=== PATIENT | male | born 1935 ===

== ENCOUNTER 2016-12-19 23:50 | Inpatient (IN) | payer MEDICARE, BC ==
[2016-12-20 00:40] LABS: ADD MANUAL DIFF? NO
[2016-12-20 00:50] LABS: BASO # 0.07 K/mm3 (0.0-2.0); EOS # 0.3 (0.0-0.7); EOS % 3.9 % (1.5-5.0); GRAN # 4.47 (1.4-6.5); GRAN % 62.7 % (50.0-68.0); HEMATOCRIT 35.7 % (42.0-52.0); LYMPH # 1.5 (1.2-3.4); LYMPH % 21.6 % (22.0-35.0); MEAN CELL VOLUME 87.3 fL (80.0-105.0); MEAN CORPUSCULAR HEMOGLOBIN 29.8 pg (25.0-35.0); MEAN CORPUSCULAR HGB CONC 34.2 g/dl (31.0-37.0); MEAN PLATELET VOLUME 9.7 fl (7.0-11.0); MONO # 0.8 (0.1-0.6); MONO % 10.8 % (1.0-6.0); PLATELET COUNT 240 10^3/uL (120.0-450.0); RED CELL DISTRIBUTION WIDTH 13.5 % (11.5-14.5); WHITE BLOOD COUNT 7.1 10^3/ul (4.5-11.0)
[2016-12-20 00:52] LABS: BILIRUBIN,TOTAL 0.7 mg/dL (0.2-1.3); CALCIUM 9.5 mg/dL (8.4-10.5); POTASSIUM 4.3 mmol/L (3.6-5.0); TOTAL PROTEIN 8.1 g/dL (5.8-8.3)
[2016-12-20 00:57] LABS: INR 0.94 (0.93-1.08); PARTIAL THROMBOPLASTIN TIME 24.8 Seconds (23.7-30.8)
--- NOTE | 2016-12-20 02:06 | ED PDOC ---
Arrival/HPI - General Chief Complaint: Lower Extremity Problem/Injury Time Seen by Provider: 12/20/16 00:14 Historian: Patient - History of Present Illness Narrative History of Present Illness (Text): 12/20/16 03:43 81-year-old male presents today with worsening left leg swelling 3 days. Patient states she's noticed over the past few days the leg has been becoming more and more swollen. Patient with a history of prostate cancer status post hormone therapy. Patient denies fevers or chills. No chest pain or shortness of breath. Patient denies numbness weakness or tingling in the lower extremities. Patient states he has been more sedentary lately. No vomiting or diarrhea. No abdominal pain. No recent trauma or injury. No other complaints Past Medical History - Provider Review Nursing Documentation Reviewed: Yes - Travel History Have you recently traveled outside [place] w/in the past 3 mons?: No - Infectious Disease Hx of Infectious Diseases: None - Tetanus Immunization Tetanus Immunization: Unknown - Cardiac Hx Pacemaker: No - Pulmonary Hx Respiratory Disorders: No - Neurological Hx Paralysis: No - HEENT Hx HEENT Disorder: Yes (GLASSES FOR READING) Hx Cataracts: Yes (SX) - Renal Hx Renal Disorder: No (RIGHT HYDRONEPHROSIS) Other/Comment: TUMOR IN THE URETER-PLACEMENT OF NEPHROSTOMY TUBE [id number] - Endocrine/Metabolic Hx Diabetes Mellitus Type 1: Yes - Hematological/Oncological Hx Blood Transfusions: No Hx Blood Transfusion Reaction: No - Integumentary Hx Dermatological Disorder: No - Musculoskeletal/Rheumatological Hx Musculoskeletal Disorders: Yes - Gastrointestinal Hx Gastrointestinal Disorders: No - Genitourinary/Gynecological Hx Genitourinary Disorders: Yes Hx Hematuria: Yes Hx Prostate Cancer: Yes Hx Prostate Problems: Yes (2015) Other/Comment: PROSTATE CA on hormone therapy - Psychiatric Hx Emotional Abuse: No Hx Physical Abuse: No Hx Substance Use: No - Surgical History Other/Comment: right nephrostomy drainage tube 10/2015 - Anesthesia Hx Anesthesia Reactions: No Hx Malignant Hyperthermia: No - Suicidal Assessment Feels Threatened In Home Enviroment: No Family/Social History - Physician Review Nursing Documentation Reviewed: Yes Family/Social History: Unknown Family HX Smoking Status: Never Smoked Hx Alcohol Use: No Hx Substance Use: No Allergies/Home Meds Allergies/Adverse Reactions: Allergies No Known Allergies Allergy (Verified 08/05/16 03:48) Home Medications: Home Meds Medication Instructions Recorded Confirmed HCTZ/Losartan Potassium [Hyzaar 1 tab PO QAM 11/30/14 12/19/16 12.5 mg-50 mg] Insulin Lispro [Humalog] 25 units SQ QPM 10/27/15 12/19/16 Atorvastatin [Lipitor] 20 mg PO QAM 01/29/16 12/19/16 Bicalutamide [Casodex] 50 mg PO DAILY 07/17/16 12/19/16 Insulin Glargine,Hum.rec.anlog 50 unit SQ QAM 07/17/16 12/19/16 [Kip Allen] Review of Systems - Review of Systems Constitutional: absent: Fatigue, Fevers Respiratory: absent: SOB, Cough Cardiovascular: absent: Chest Pain, Palpitations Gastrointestinal: absent: Abdominal Pain, Nausea, Vomiting Genitourinary Male: absent: Dysuria, Frequency, Hematuria Musculoskeletal: Other (left leg swelling). absent: Arthralgias, Back Pain, Neck Pain Skin: absent: Rash, Pruritis Neurological: absent: Headache, Dizziness Psychiatric: absent: Anxiety, Depression Physical Exam Vital Signs Reviewed: Yes Vital Signs Temp Pulse Resp BP Pulse Ox 12/20/16 01:58 74 16 168/93 H 99 12/19/16 23:55 98.5 F 104 H 16 155/76 H 97 Temperature: Afebrile Blood Pressure: Hypertensive Pulse: Tachycardic Respiratory Rate: Normal Appearance: Positive for: Well-Appearing, Non-Toxic, Comfortable Pain Distress: None Mental Status: Positive for: Alert and Oriented X 3 - Systems Exam Head: Present: Atraumatic Mouth: Present: Moist Mucous Membranes Neck: Present: Normal Range of Motion Respiratory/Chest: Present: Clear to Auscultation, Good Air Exchange. No: Respiratory Distress, Accessory Muscle Use Cardiovascular: Present: Regular Rate and Rhythm, Normal S1, S2. No: Murmurs Abdomen: No: Tenderness, Rebound, Guarding Upper Extremity: Present: Normal Inspection Lower Extremity: Present: Edema, NORMAL PULSES, Normal ROM, Swelling (+ edema noted to left thigh, knee, calf and ankle. ), Neurovascularly Intact, Capillary Refill < 2 s. No: CALF TENDERNESS, Tenderness, Erythema, Temperature Abnormalties Medical Decision Making ED Course and Treatment: 12/20/16 03:45 81-year-old male with a history of prostate cancer with a three-day history of left leg swelling without pain Patient nontoxic well-appearing no distress with significant swelling to the entire left leg Venous duplex of the left lower extremity shows a partial DVT of the common femoral vein CBC within normal limits CMP glucose 300 BUNs 44 creatinine 2.5 PT/INR PTT cxr;wnl We will start the patient on heparin. We will treat hyperglycemia with insulin. Pts PMD is dr. monreal; will admit to hospitalist. discussed in depth with Dr. schulte excepts admission to [facility] for DVT all results discussed with patient and family member. impression: dvt admit to med/surg dr. JENIFER marshall. - Lab Interpretations Lab Results: 12/20/16 00:32 12/20/16 00:32 Lab Results 12/20/16 00:32: WBC 7.1, RBC 4.09, Hgb 12.2 L, Hct 35.7 L, MCV 87.3, MCH 29.8, MCHC 34.2, RDW 13.5, Plt Count 240, MPV 9.7, Gran % 62.7, Lymph % (Auto) 21.6 L , [place] % (Auto) 10.8 H, Eos % (Auto) 3.9, Baso % (Auto) 1.0, Gran # 4.47, Lymph # 1.5, Todd # 0.8 H, Eos # 0.3, Baso # 0.07 12/20/16 00:32: Sodium 139, Potassium 4.3, Chloride 102, Carbon Dioxide 24, Anion Gap 17, BUN 44 H, Creatinine 2.5 H, Est GFR ( Amer) 30, Est GFR ( Non-Af Amer) 25, Random Glucose 300 H, Calcium 9.5, Total Bilirubin 0.7, AST 18 , ALT 28, Alkaline Phosphatase 150 H, Total Protein 8.1, Albumin 4.0, Globulin 4.2, Albumin/Globulin Ratio 1.0 L 12/20/16 00:32: PT 10.2, INR 0.94, APTT 24.8 - RAD Interpretation Radiology Orders: 12/20/16 00:14 DUPLEX LOWER EXTRM VEIN LEFT [US] Stat 12/20/16 00:30 CHEST PORTABLE [RAD] Stat - Medication Orders Current Medication Orders: Atorvastatin Calcium (Lipitor) 20 mg PO QAM MANNIE Bicalutamide (Casodex) 50 mg PO DAILY [facility] Hydrochlorothiazide (Microzide) 12.5 mg PO DAILY [facility] Sodium Chloride (Sodium Chloride 0.9%) 1,000 mls @ 100 mls/hr IV .Q10H MANNIE Last Admin: 12/20/16 03:33 Dose: 100 mls/hr Heparin Sodium/Sodium Chloride (Heparin 25442 Units/250ml 1/2 Normal Saline) 25 ,000 units in 250 mls @ 15.627 mls/hr IV .Q16H PRN; Protocol; 18 UNITS/KG/HR PRN Reason: ADJUST RATE PER PROTOCOL Last Admin: 12/20/16 03:29 Dose: 18 units/kg/hr, 15.627 mls/hr Insulin Detemir (Levemir) 30 unit SC HS [facility] Insulin Human Regular (Humulin R Med) 0 units SC ACHS MANNIE PRN Reason: Protocol Losartan Potassium (Cozaar) 50 mg PO DAILY [facility] Ondansetron HCl (Zofran Inj) 4 mg IVP Q6H PRN PRN Reason: Nausea/Vomiting Discontinued Medications Heparin Sodium (Porcine) (Heparin) 6,400 units 80 units/kg (6400 units) IV ONCE ONE PRN Reason: Protocol Stop: 12/20/16 03:01 Last Admin: 12/20/16 03:15 Dose: 6,400 units Disposition/Present on Arrival - Present on Arrival Any Indicators Present on Arrival: No History of DVT/PE: No History of Uncontrolled Diabetes: No Urinary Catheter: No History of Decub. Ulcer: No History Surgical Site Infection Following: None - Disposition Have Diagnosis and Disposition been Completed?: Yes Diagnosis: Hyperglycemia, Chronic kidney disease, DVT (deep venous thrombosis) Disposition: HOSPITALIZED Disposition Time: 02:04 Patient Plan: Admission Patient Problems: Current Active Problems Problem Status Onset DVT (deep venous thrombosis) Acute Hyperglycemia Acute Chronic kidney disease Chronic Condition: FAIR
--- NOTE | 2016-12-20 02:45 | CP.PCM.HP ---
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 Patient states that he noticed his leg visibly becoming more and more swollen so he came to the emergency department. He denies complaints of pain, numbness or tingling to the leg. He did not have any trauma or bites to the leg, denies recent travel but does admit to being more sedentary than usual due to having trouble sleeping at night which causes him to lay down during the day. The increase in his sedentary behavior has occurred over the past 1 week. He denies any complaints of chest pain, fever, chills, shortness of breath, palpitations, abdominal pain, nausea, vomiting, diarrhea or dysuria. Past medical history: Prostate Ca s/p horomone therapy history of nephrostomy tube due to a bladder mass; now with a ureteral stent Diabetes Allergies: NKDA Fam Hx: Sister - secondary to gastric cancer; father - Diabetes Soc hx: denies tobacco/etoh/illicit drug use Meds: Lispro 25 units SQ PM Glargine 50 Units SQ AM HCTZ/Losartan 12.5/50 Casodex 50mg po daily Lipitor 20mg po AM Present on Admission - Present on Admission Any Indicators Present on Admission: No Review of Systems - Review of Systems Review of Systems: As per HPI otherwise negative for a 12 point ROS Past Patient History - Infectious Disease Hx of Infectious Diseases: None - Tetanus Immunizations Tetanus Immunization: Unknown - Past Medical History & Family History Past Medical History?: Yes - Past Social History Smoking Status: Never Smoked Alcohol: None Drugs: Denies Home Situation {Lives}: With Family - CARDIAC Hx Pacemaker: No - PULMONARY Hx Respiratory Disorders: No - NEUROLOGICAL Hx Paralysis: No - HEENT Hx HEENT Problems: Yes (GLASSES FOR READING) Hx Cataracts: Yes (SX) - RENAL Hx Chronic Kidney Disease: No (RIGHT HYDRONEPHROSIS) Other/Comment: TUMOR IN THE URETER-PLACEMENT OF NEPHROSTOMY TUBE [id number] - ENDOCRINE/METABOLIC Hx Diabetes Mellitus Type 1: Yes - HEMATOLOGICAL/ONCOLOGICAL Hx Blood Transfusions: No Hx Blood Transfusion Reaction: No - INTEGUMENTARY Hx Dermatological Problems: No - MUSCULOSKELETAL/RHEUMATOLOGICAL Hx Musculoskeletal Disorders: Yes - GASTROINTESTINAL Hx Gastrointestinal Disorders: No - GENITOURINARY/GYNECOLOGICAL Hx Genitourinary Disorders: Yes Hx Hematuria: Yes Hx Prostate Cancer: Yes Hx Prostate Problems: Yes (2015) Other/Comment: PROSTATE CA on hormone therapy - PSYCHIATRIC Hx Emotional Abuse: No Hx Physical Abuse: No Hx Substance Use: No - SURGICAL HISTORY Other/Comment: right nephrostomy drainage tube 10/2015 - ANESTHESIA Hx Anesthesia Reactions: No Hx Malignant Hyperthermia: No Meds Allergies/Adverse Reactions: Allergies Allergy/AdvReac Type Severity Reaction Status Date / Time No Known Allergies Allergy Verified 08/05/16 03:48 Physical Exam - Constitutional Appears: Well, Non-toxic - Head Exam Head Exam: ATRAUMATIC, NORMAL INSPECTION - Eye Exam Eye Exam: EOMI, Normal appearance - ENT Exam ENT Exam: Mucous Membranes Moist - Respiratory Exam Respiratory Exam: Clear to Auscultation Bilateral, NORMAL BREATHING PATTERN. absent: Rales, Rhonchi, Wheezes - Cardiovascular Exam Cardiovascular Exam: REGULAR RHYTHM, +S1, +S2 - GI/Abdominal Exam GI & Abdominal Exam: Soft. absent: Guarding, Rebound, Tenderness - Rectal Exam Rectal Exam: Deferred - Extremities Exam Additional comments: LLE visibly swollen compared to RLE; nontender; most of the increased swelling appears to be at the inner thigh; mild erythema - Neurological Exam Neurological exam: Alert, Oriented x3 - Psychiatric Exam Psychiatric exam: Normal Affect, Normal Mood - Skin Skin Exam: Dry, Intact, Normal Color, Warm Results - Vital Signs Recent Vital Signs: Last Vital Signs Temp 98.5 F 12/19/16 23:55 Pulse 104 H 12/19/16 23:55 Resp 16 12/19/16 23:55 BP 155/76 H 12/19/16 23:55 Pulse Ox 97 12/19/16 23:55 - Labs Result Diagrams: 12/20/16 00:32 12/20/16 00:32 Labs: Laboratory Results - last 24 hr 12/20/16 12/20/16 12/20/16 00:32 00:32 00:32 WBC 7.1 RBC 4.09 Hgb 12.2 L Hct 35.7 L MCV 87.3 MCH 29.8 MCHC 34.2 RDW 13.5 Plt Count 240 MPV 9.7 Gran % 62.7 Lymph % (Auto) 21.6 L [place] % (Auto) 10.8 H Eos % (Auto) 3.9 Baso % (Auto) 1.0 Gran # 4.47 Lymph # 1.5 [place] # 0.8 H Eos # 0.3 Baso # 0.07 PT 10.2 INR 0.94 APTT 24.8 Sodium 139 Potassium 4.3 Chloride 102 Carbon Dioxide 24 Anion Gap 17 BUN 44 H Creatinine 2.5 H Est GFR ( Amer) 30 Est GFR (Non-Af Amer) 25 Random Glucose 300 H Calcium 9.5 Total Bilirubin 0.7 AST 18 ALT 28 Alkaline Phosphatase 150 H Total Protein 8.1 Albumin 4.0 Globulin 4.2 Albumin/Globulin Ratio 1.0 L - Imaging and Cardiology Venous US Status: Pending (Lower extremity Ultrasound preliminarily read as left common femoral VTE) Assessment & Plan - Assessment and Plan (Free Text) Assessment: 81 year old male with a Past medical history of Diabetes, Prostate Ca, Hypertension, Dyslipidemia, ureteral stent who presents with lower extremity swelling for 3 days and is found to have a DVT in the common femoral vein. He will be admitted for therapeutic anticoagulation. Plan: 1) Lower extremity VTE - will await official US report; start a heparin drip and bridge to either coumadin or start another oral agent depending on patient' s insurance status. Likely developed due to a combination of sedentary lifestyle combined with a history of malignancy; For completeness sake will send off a workup for clotting factors. 2) Diabetes - will place on an ISS and perform fingersticks ACHS; will start levemir 30 units PM and monitor 3) Hypertension - c/w HCTZ/Losartan 4) Prostate Ca - c/w casodex 5) Dyslipidemia - lipitor 20mg po hs 6) Acute on chronic kidney injury - will provide light IVF hydration @ 100cc/hr and re-check bmp in the AM tomorrow
[2016-12-20] MEDS ORDERED: Heparin25000 units/250ml 1/2NS 25,000 UNITS/250 ML BAG IV PRN ×2 (02:47→02:57)
[2016-12-20] MEDS ORDERED: Sodium Chloride 0.9% 1,000 ML IV SCH (03:00)
[2016-12-20] MEDS: Heparin25000 units/250ml 1/2NS 25,000 UNITS/250 ML BAG IV PRN ×2 (03:29→23:08)
[2016-12-20 04:29] VITALS: BMI 28.2
[2016-12-20] MEDS ORDERED: Sodium Chloride 0.45% 1,000 ML IV SCH (08:00)
[2016-12-20] MEDS: Insulin Reg-MEDIUM-Coverage SC SCH ×4 (08:20→23:05)
--- NOTE | 2016-12-20 08:52 | RAD ---
HISTORY: left leg pain/swelling COMPARISON: 08/05/2016 FINDINGS: LUNGS: No active pulmonary disease. PLEURA: No significant pleural effusion identified, no pneumothorax apparent. CARDIOVASCULAR: Normal. OSSEOUS STRUCTURES: No significant abnormalities. VISUALIZED UPPER ABDOMEN: Normal. OTHER FINDINGS: None. IMPRESSION: No active disease.
--- NOTE | 2016-12-20 09:21 | US ---
PROCEDURE: Left lower extremity venous US HISTORY: Leg pain and swelling. Evaluate for DVT. PHYSICIAN(S): Tevin Eaton MD. TECHNIQUE: Duplex sonography and color-flow Doppler with graded compression were used to evaluate the deep venous system of the left lower extremity. FINDINGS: There is adherent subacute/chronic nonocclusive thrombus in the left common femoral vein. The left femoral vein, left popliteal vein, and visualized left tibial veins are patent and compressible. IMPRESSION: 1. Nonocclusive adherent subacute/chronic thrombus in the left common femoral vein
[2016-12-20] MEDS ORDERED: Non Formulary Medication (Hctz/Losartan Potassium [Hyzaar 12.5 Mg-50 Mg] 1 TAB) PO SCH (10:00)
--- NOTE | 2016-12-20 14:19 | CON ---
DATE: 12/20/2016 HISTORY OF PRESENT ILLNESS: This is an 81-year-old man who comes in for a subacute left common femor al lower leg phlebitis. He is known to have prostate carcinoma, being treated with Lupron and Casode x for the last year and was doing well. He presented, I suspect, with bone metastases. He does get a pain in his right arm that radiates somewhat ____, but no change recently. Anyway, he comes in for swelling of his left leg for 3 days. PHYSICAL EXAMINATION: SKIN: No petechiae, no bruises. HEENT: Anicteric. NODES: None palpable in the axillary, cervical, supraclavicular or inguinal regions. LUNGS: Clear at present. No vertebral tenderness. HEART: S1, S2. ABDOMEN: Shows no liver, no spleen, no tenderness, no ascites. EXTREMITIES: Shows on the left upper thigh some swelling, but he says it is already better on the Co umadin for a day. EXTREMITIES: No edema. CENTRAL NERVOUS SYSTEM: No focal finding. I discussed with the resident, he is on heparin and we can start him on Coumadin as soon as possible. Once he has a reasonable INR which I expect in 2 or 3 days, he can be discharged to be followed by the footwear sales representative. Evidently has also an appointment to see me the first week in January and will reevaluat e him at that time in terms of his prostate cancer, etc. But at this point, we will give him the Cou madin for at least 6 months and reevaluate. Ravinder Marina MD cc: [id number] TT: 12/20/2016 14:18:52 Confirmation # [id number] Dictation # [id number] jn
--- NOTE | 2016-12-20 14:27 | CON ---
DATE: 12/20/2016 REASON FOR CONSULTATION: Acute kidney injury. 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 The patient denies any trauma. He denies any fever, chills. He denies any itch ing, rash. He is found to have a left lower extremity DVT. Also, he is found to have his creatinine higher than his baseline. Baseline creatinine is around 2.0. His creatinine was found to be 2.5; h ence, consultation is requested. PAST MEDICAL AND SURGICAL HISTORY: NIDDM, hypertension, prostate cancer, history of nephrostomy, rig ht ureteral stent, chronic kidney disease stage IV, bowel surgery, hyperlipidemia, hyponatremia. FAMILY HISTORY: Noncontributory. SOCIAL HISTORY: No smoking, no alcohol use, no IV drug abuse. ALLERGIES: No known drug allergies. MEDICATIONS AT HOME: Included insulin, Hyzaar 50/12.5, Casodex, Lipitor. CURRENT MEDICATIONS: Casodex, Cozaar 50, heparin IV, insulin, Lipitor, Zofran. REVIEW OF SYSTEMS: All systems are reviewed, pertinent positives as mentioned in the history of pres enting illness, rest unremarkable. PHYSICAL EXAMINATION: GENERAL: Elderly male lying in bed. VITAL SIGNS: Blood pressure 178/94, heart rate 134, respiratory rate 18, temperature 98. HEENT: Normocephalic, atraumatic. NECK: Supple, no JVD. LUNGS: Bilateral equal air entry, no rales. CARDIAC: S1, S2, regular rate and rhythm, no murmur, no rub. ABDOMEN: Soft, nondistended, nontender. Bowel sounds present. EXTREMITIES: Significant edema of the left lower extremity, no edema of the right lower extremity. INTAKE AND OUTPUT: 220/100. LABORATORY DATA: WBC 7.1, hemoglobin 12, hematocrit 36, platelets 240. Sodium 139, potassium 4.3, c hloride 102, CO2 24, BUN 44, creatinine 2.5, glucose 300, calcium 9.5, AST 18, ALT 28, albumin 4.0. ASSESSMENT: 1. Acute kidney injury superimposed on chronic kidney disease stage IV. 2. Left lower extremity deep venous thrombosis. 3. Non-insulin dependent diabetes mellitus. 4. Hypertension. 5. History of prostate cancer. 6. History of bladder mass. 7. History of right hydronephrosis. PLAN: 1. Agree with IV heparin. 2. Agree with holding hydrochlorothiazide. 3. Push p.o. fluids. 4. Monitor urine output. 5. Limit diagnostics. Clare Cooney MD cc: [id number] TT: 12/20/2016 14:27:16 Confirmation # [id number] Dictation # [id number] tn
[2016-12-20 15:34] LABS: INR 0.99 (0.93-1.08)
[2016-12-20 15:42] LABS: PARTIAL THROMBOPLASTIN TIME 104.6 Seconds (23.7-30.8)
[2016-12-20 21:04] LABS: INR 0.99 (0.93-1.08); PARTIAL THROMBOPLASTIN TIME 63.9 Seconds (23.7-30.8)
[2016-12-20] MEDS: Insulin Detemir 100 units/ml Vial (Levemir) SC SCH (23:07)
[2016-12-20] MEDS ORDERED: DiphenhydrAMINE 50 mg/ml Inj IVP STA (23:42)
[2016-12-21 03:15] LABS: ADD MANUAL DIFF? NO
[2016-12-21 03:16] LABS: BASO # 0.06 K/mm3 (0.0-2.0); BASO % 0.9 % (0.0-3.0); EOS # 0.3 (0.0-0.7); EOS % 3.7 % (1.5-5.0); GRAN % 59.7 % (50.0-68.0); HEMATOCRIT 34.5 % (42.0-52.0); LYMPH # 1.9 (1.2-3.4); LYMPH % 27.8 % (22.0-35.0); MEAN CORPUSCULAR HEMOGLOBIN 29.4 pg (25.0-35.0); MEAN CORPUSCULAR HGB CONC 34.2 g/dl (31.0-37.0); MEAN PLATELET VOLUME 9.4 fl (7.0-11.0); MONO # 0.5 (0.1-0.6); MONO % 7.9 % (1.0-6.0); PLATELET COUNT 231 10^3/uL (120.0-450.0); RED CELL DISTRIBUTION WIDTH 13.5 % (11.5-14.5); WHITE BLOOD COUNT 6.7 10^3/ul (4.5-11.0)
[2016-12-21 03:19] LABS: INR 0.99 (0.93-1.08); PARTIAL THROMBOPLASTIN TIME 58.3 Seconds (23.7-30.8)
[2016-12-21 03:31] LABS: ALB/GLOB RATIO 0.9 (1.1-1.8); BILIRUBIN,TOTAL 0.7 mg/dL (0.2-1.3); CALCIUM 9.3 mg/dL (8.4-10.5); POTASSIUM 3.8 mmol/L (3.6-5.0); TOTAL PROTEIN 8.3 g/dL (5.8-8.3)
[2016-12-21] MEDS: Insulin Reg-MEDIUM-Coverage SC SCH ×4 (07:37→21:10)
--- NOTE | 2016-12-21 13:57 | PN ---
DATE: 12/21/2016 SUBJECTIVE: The patient is seen lying in bed. He appears comfortable. He has IV heparin going. PHYSICAL EXAMINATION: GENERAL: Elderly male lying in bed. VITAL SIGNS: Blood pressure 136/78, heart rate 82, respiratory rate 18, temperature 98. HEENT: Normocephalic, atraumatic. NECK: Supple, no JVD. LUNGS: Bilateral equal air entry. CARDIAC: S1, S2, regular rate and rhythm, no murmur, no rub. ABDOMEN: Distended, soft, nontender, bowel sounds present. EXTREMITIES: Swelling of the left lower extremity, no edema of the right lower extremity. INTAKE AND OUTPUT: 1590/650. LABORATORY DATA: WBC 6.7, hemoglobin 11.8, hematocrit 34.5, platelets 231. PTT 56.7. Sodium 138, p otassium 3.8, chloride 103, CO2 23, BUN 36, creatinine 2.2, glucose 133, calcium 9.3. CURRENT MEDICATIONS: Casodex, Coumadin, Cozaar 50, heparin IV, insulin, Levemir, Lipitor, Zofran. ASSESSMENT: 1. Acute kidney injury superimposed on chronic kidney disease stage IV, resolved. 2. Left lower extremity deep venous thrombosis. 3. Hypertension. 4. History of prostate cancer, radiation therapy, history of percutaneous nephrostomy on the right s viviana, right ureteral stent. 5. Non-insulin dependent diabetes mellitus. PLAN: 1. Push p.o. fluids. 2. Continue IV heparin. 3. Continue insulin coverage. 4. Continue losartan 50 mg daily. Clare Cooney MD cc: [id number] TT: 12/21/2016 13:56:49 Confirmation # [id number] Dictation # [id number]
[2016-12-21] MEDS: Insulin Detemir 100 units/ml Vial (Levemir) SC SCH (21:11)
--- NOTE | 2016-12-21 22:03 | CP.PCM.PN ---
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 Today, pt. states the swelling has decreased and he denies any complaints of chest pain , fever, chills, shortness of breath, palpitations, abdominal pain, nausea, vomiting, diarrhea or dysuria. Objective - Vital Signs/Intake and Output Vital Signs (last 24 hours): Temp Pulse Resp BP Pulse Ox 98.0 F 82 20 136/78 97 12/21/16 06:00 12/21/16 06:00 12/21/16 06:00 12/21/16 06:00 12/21/16 06:00 Intake and Output: 12/21/16 12/22/16 18:59 06:59 Intake Total 540 Output Total 700 Balance -160 - Medications Medications: Current Medications Atorvastatin Calcium (Lipitor) 20 mg PO QAM [facility] Last Admin: 12/21/16 09:12 Dose: 20 mg Bicalutamide (Casodex) 50 mg PO DAILY [facility] Last Admin: 12/21/16 09:12 Dose: 50 mg Heparin Sodium/Sodium Chloride (Heparin 00827 Units/250ml 1/2 Normal Saline) 25 ,000 units in 250 mls @ 15.627 mls/hr IV .Q16H PRN; Protocol; 18 UNITS/KG/HR PRN Reason: ADJUST RATE PER PROTOCOL Last Admin: 12/20/16 23:08 Dose: 11.05 units/kg/hr, 9.593 mls/hr Insulin Detemir (Levemir) 30 unit SC HS [facility] Last Admin: 12/21/16 21:11 Dose: 30 unit Insulin Human Regular (Humulin R Med) 0 units SC ACHS [facility] PRN Reason: Protocol Last Admin: 12/21/16 21:10 Dose: Not Given Losartan Potassium (Cozaar) 50 mg PO DAILY [facility] Last Admin: 12/21/16 09:12 Dose: 50 mg Ondansetron HCl (Zofran Inj) 4 mg IVP Q6H PRN PRN Reason: Nausea/Vomiting Sodium Chloride ([place]al [place]) 0 ml NS Q3 PRN PRN Reason: Nasal congestion Warfarin Sodium (Coumadin) 5 mg PO 1800 [facility] PRN Reason: Protocol Last Admin: 12/21/16 17:18 Dose: 5 mg - Labs Labs: 12/21/16 03:00 12/21/16 03:00 PT 10.7 Seconds (9.9-11.8) 12/21/16 03:00 INR 0.99 (0.93-1.08) 12/21/16 03:00 APTT 56.7 Seconds (23.7-30.8) H 12/21/16 09:25 - Constitutional Appears: Non-toxic, No Acute Distress - Head Exam Head Exam: ATRAUMATIC, NORMOCEPHALIC - Eye Exam Eye Exam: EOMI - ENT Exam ENT Exam: Mucous Membranes Moist - Respiratory Exam Respiratory Exam: Clear to Ausculation Bilateral, NORMAL BREATHING PATTERN - Cardiovascular Exam Cardiovascular Exam: REGULAR RHYTHM, RRR, +S1, +S2. absent: JVD - GI/Abdominal Exam GI & Abdominal Exam: Soft, Mass (fullness in lower abdomen), Normal Bowel Sounds - Extremities Exam Extremities Exam: Joint Swelling, Pedal Edema - Back Exam Back Exam: absent: CVA tenderness (L), CVA tenderness (R), paraspinal tenderness - Neurological Exam Neurological Exam: Alert, Awake - Psychiatric Exam Psychiatric exam: Normal Affect, Normal Mood - Skin Skin Exam: Dry, Intact, Normal Color, Warm Assessment and Plan - Assessment and Plan (Free Text) Assessment: 81 year old male with a Past medical history of Diabetes, Prostate Ca, Hypertension, Dyslipidemia, ureteral stent who presents with lower extremity swelling for 3 days and is found to have a DVT in the common femoral vein. He will be admitted for therapeutic anticoagulation. 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 -start a heparin drip on 12/20 -bridge to coumadin 5mg -clotting factors -received -INR today .99 no change 2) Diabetes - -ISS -levemir 30 units PM and monitor -fingersticks ACHS 3) Hypertension stable on 12/21 -Losartan 50mg daily 4) Prostate Ca - -casodex 50mg 5) Dyslipidemia - lipitor 20mg po hs 6) Acute on chronic kidney injury - will provide light IVF hydration @ 100cc/hr and re-check bmp in the AM tomorrow 7)Abdominal Fullness on exam CT Abd/Pel w/o contrast - 8) PPX -Zofran -O2 NC 2L -Consistent Carb Diet -Vital Signs q8 -Asp precautions <Nacho Wise - Last Filed: 12/22/16 19:05> Objective - Vital Signs/Intake and Output Vital Signs (last 24 hours): Temp Pulse Resp BP Pulse Ox 98.6 F 81 20 141/68 95 12/22/16 16:42 12/22/16 16:42 12/22/16 16:42 12/22/16 16:42 12/22/16 16:42 - Medications Medications: Current Medications Atorvastatin Calcium (Lipitor) 20 mg PO DIN [facility] Last Admin: 12/22/16 17:01 Dose: 20 mg Bicalutamide (Casodex) 50 mg PO DAILY [facility] Last Admin: 12/22/16 09:27 Dose: 50 mg Docusate Sodium (Colace) 100 mg PO DAILY [facility] Last Admin: 12/22/16 12:15 Dose: 100 mg Heparin Sodium/Sodium Chloride (Heparin 16622 Units/250ml 1/2 Normal Saline) 25 ,000 units in 250 mls @ 15.627 mls/hr IV .Q16H PRN; Protocol; 18 UNITS/KG/HR PRN Reason: ADJUST RATE PER PROTOCOL Last Admin: 12/22/16 01:13 Dose: 11.05 units/kg/hr, 9.593 mls/hr Insulin Detemir (Levemir) 30 unit SC HS [facility] Last Admin: 12/21/16 21:11 Dose: 30 unit Insulin Human Regular (Humulin R Med) 0 units SC ACHS [facility] PRN Reason: Protocol Last Admin: 12/22/16 17:01 Dose: 3 units Losartan Potassium (Cozaar) 50 mg PO DAILY [facility] Last Admin: 12/22/16 09:22 Dose: 50 mg Ondansetron HCl (Zofran Inj) 4 mg IVP Q6H PRN PRN Reason: Nausea/Vomiting Polyethylene Glycol (Miralax) 17 gm PO DAILY [facility] Last Admin: 12/22/16 12:15 Dose: 17 gm Sodium Chloride ([place]al [place]) 0 ml NS Q3 PRN PRN Reason: Nasal congestion Warfarin Sodium (Coumadin) 10 mg PO 1800 MANNIE PRN Reason: Protocol Last Admin: 12/22/16 17:01 Dose: 10 mg - Labs Labs: 12/22/16 07:00 12/21/16 03:00 PT 11.5 Seconds (9.9-11.8) 12/22/16 07:00 INR 1.06 (0.93-1.08) 12/22/16 07:00 APTT 52.3 Seconds (23.7-30.8) H 12/22/16 07:00 Attending/Attestation - Attestation I have personally seen and examined this patient.: Yes I have fully participated in the care of the patient.: Yes I have reviewed all pertinent clinical information, including history, physical exam and plan: Yes Notes (Text): I have seen and examined patient at bedside. 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 CT abdomen and pelvis ordered. Creatinine is stable around 2.2. Upon discharge patient will follow up with Dr Marina, Dr Bauer and Dr Cooney. Dr Nacho Wise
[2016-12-22] MEDS: Heparin25000 units/250ml 1/2NS 25,000 UNITS/250 ML BAG IV PRN (01:13)
[2016-12-22 07:25] LABS: ADD MANUAL DIFF? NO
[2016-12-22 07:35] LABS: BASO # 0.06 K/mm3 (0.0-2.0); BASO % 0.9 % (0.0-3.0); EOS # 0.2 (0.0-0.7); EOS % 3.2 % (1.5-5.0); GRAN # 3.88 (1.4-6.5); GRAN % 59.1 % (50.0-68.0); LYMPH # 1.8 (1.2-3.4); LYMPH % 26.7 % (22.0-35.0); MEAN CELL VOLUME 86.4 fL (80.0-105.0); MEAN CORPUSCULAR HEMOGLOBIN 29.6 pg (25.0-35.0); MEAN CORPUSCULAR HGB CONC 34.3 g/dl (31.0-37.0); MEAN PLATELET VOLUME 9.9 fl (7.0-11.0); MONO # 0.7 (0.1-0.6); MONO % 10.1 % (1.0-6.0); PLATELET COUNT 243 10^3/uL (120.0-450.0); RED CELL DISTRIBUTION WIDTH 13.7 % (11.5-14.5); WHITE BLOOD COUNT 6.6 10^3/ul (4.5-11.0)
[2016-12-22 07:40] LABS: INR 1.06 (0.93-1.08); PARTIAL THROMBOPLASTIN TIME 52.3 Seconds (23.7-30.8)
[2016-12-22] MEDS: Insulin Reg-MEDIUM-Coverage SC SCH ×4 (07:46→23:07)
--- NOTE | 2016-12-22 10:54 | CT ---
PROCEDURE: CT Abdomen and Pelvis without contrast. HISTORY: abdominal fullness left side COMPARISON: CT from 10/21/2015 and 06/28/2016 TECHNIQUE: Contiguous axial images of the abdomen and pelvis. No oral or IV contrast given. Coronal and Sagittal reformats generated. Please note that due to lack of intravenous and oral contrast, evaluation of soft tissue structures and bowel is limited. Radiation dose: Total exam DLP = 519.59 mGy-cm. This CT exam was performed using one or more of the following dose reduction techniques: Automated exposure control, adjustment of the mA and/or kV according to patient size, and/or use of iterative reconstruction technique. FINDINGS: LOWER THORAX: Mild bibasilar atelectatic changes noted. Small hiatal hernia. The heart is mildly enlarged. No significant pericardial effusion. Coronary artery calcifications. LIVER: Sub centimeter hypodensity in the hepatic dome (image 16, series 2) too small to characterize accurately. No intrahepatic biliary ductal dilatation. GALLBLADDER AND BILE DUCTS: Unremarkable. PANCREAS: Unremarkable. No mass. No ductal dilatation. SPLEEN: Unremarkable. No splenomegaly. ADRENALS: Hypodense adrenal nodule measuring approximately 1 centimeter on the right essentially stable. KIDNEYS AND URETERS: Both kidneys demonstrate intervening cortices. Multiple cysts noted on the left. The right renal collecting system contains air. Ureteral stent is noted. This could be result of recent instrumentation. Previously identified hydroureter on the right is not clearly seen as there is a stent within it. Mild hydronephrosis on the left. BLADDER: Urinary bladder demonstrates mild thickening of the wall which could be due to underdistention however underlying cystitis cannot be excluded. Nondependent air noted within the urinary bladder. Incidental note is made of thickening of the posterior wall of the urinary bladder on the right, likely associated with the right ureterovesicular junction. REPRODUCTIVE: Prostate gland is not significantly enlarged. Bilateral seminal vesicles demonstrates mild thickening on the right. APPENDIX: Unremarkable. BOWEL: Moderate stool in the colon. Focal dilatation of the sigmoid colon associated the surgical suture line seen. This remains essentially stable when compared to prior CT from 06/28/2016. No bowel obstruction. PERITONEUM: Unremarkable. No fluid collection. No free air. LYMPH NODES: There is interval development of enlarged lymph nodes in the pelvis particularly along left pelvic sidewall. The largest measuring approximately 2.7 x 2.8 centimeters noted on the left (image 149, series 2. Enlarged lymph nodes up to 2 centimeter in size noted along the right pelvic sidewall. Scattered small retroperitoneal lymph nodes also noted. VASCULATURE: Unremarkable. No aortic aneurysm. BONES: No fracture or destructive lesion. L5 pars defect on the left. OTHER FINDINGS: None. IMPRESSION: There is thickening of the posterior wall of the urinary bladder on the right, likely associated with the right ureterovesicular junction. Associated thickening of the right seminal vesicle. This is a new finding when compared to prior CT from 06/28/2016. Interval development of enlarged lymph nodes along the pelvic sidewalls left greater than right. The largest measuring approximately 2.7 x 2.8 centimeters on the left pelvic sidewall. Scattered small retroperitoneal lymph nodes also noted. Air within the right urinary collecting system likely associated with recent instrumentation. Right-sided ureteral stent noted. The distal portion of the stent is within the urinary bladder. Stable hypodense adrenal nodule on the right.
[2016-12-22] MEDS: POLYETHYLENE GLYCOL 3350 17 GM/Dose PACKET PO SCH (12:15)
--- NOTE | 2016-12-22 17:19 | CP.PCM.PN ---
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 Today, pt. states the swelling has decreased more and has no complaints. He denies chest pain, fever, chills, shortness of breath, palpitations, abdominal pain, nausea, vomiting, diarrhea or dysuria. Objective - Vital Signs/Intake and Output Vital Signs (last 24 hours): Temp Pulse Resp BP Pulse Ox 98.6 F 81 20 141/68 95 12/22/16 16:42 12/22/16 16:42 12/22/16 16:42 12/22/16 16:42 12/22/16 16:42 Intake and Output: 12/22/16 12/22/16 06:59 18:59 Intake Total 540 Output Total 1200 Balance -660 - Medications Medications: Current Medications Atorvastatin Calcium (Lipitor) 20 mg PO DIN [facility] Last Admin: 12/22/16 17:01 Dose: 20 mg Bicalutamide (Casodex) 50 mg PO DAILY [facility] Last Admin: 12/22/16 09:27 Dose: 50 mg Docusate Sodium (Colace) 100 mg PO DAILY [facility] Last Admin: 12/22/16 12:15 Dose: 100 mg Heparin Sodium/Sodium Chloride (Heparin 25870 Units/250ml 1/2 Normal Saline) 25 ,000 units in 250 mls @ 15.627 mls/hr IV .Q16H PRN; Protocol; 18 UNITS/KG/HR PRN Reason: ADJUST RATE PER PROTOCOL Last Admin: 12/22/16 01:13 Dose: 11.05 units/kg/hr, 9.593 mls/hr Insulin Detemir (Levemir) 30 unit SC HS [facility] Last Admin: 12/21/16 21:11 Dose: 30 unit Insulin Human Regular (Humulin R Med) 0 units SC ACHS [facility] PRN Reason: Protocol Last Admin: 12/22/16 17:01 Dose: 3 units Losartan Potassium (Cozaar) 50 mg PO DAILY [facility] Last Admin: 12/22/16 09:22 Dose: 50 mg Ondansetron HCl (Zofran Inj) 4 mg IVP Q6H PRN PRN Reason: Nausea/Vomiting Polyethylene Glycol (Miralax) 17 gm PO DAILY [facility] Last Admin: 12/22/16 12:15 Dose: 17 gm Sodium Chloride ([place] Nasal [place]) 0 ml NS Q3 PRN PRN Reason: Nasal congestion Warfarin Sodium (Coumadin) 10 mg PO 1800 MANNIE PRN Reason: Protocol Last Admin: 12/22/16 17:01 Dose: 10 mg - Labs Labs: 12/22/16 07:00 12/21/16 03:00 PT 11.5 Seconds (9.9-11.8) 12/22/16 07:00 INR 1.06 (0.93-1.08) 12/22/16 07:00 APTT 52.3 Seconds (23.7-30.8) H 12/22/16 07:00 - Constitutional Appears: Non-toxic, No Acute Distress - Head Exam Head Exam: ATRAUMATIC, NORMOCEPHALIC - Eye Exam Eye Exam: EOMI - ENT Exam ENT Exam: Mucous Membranes Moist - Respiratory Exam Respiratory Exam: Clear to Ausculation Bilateral, NORMAL BREATHING PATTERN - Cardiovascular Exam Cardiovascular Exam: REGULAR RHYTHM, RRR, +S1, +S2. absent: JVD - GI/Abdominal Exam GI & Abdominal Exam: Soft, Mass (fullness in lower abdomen), Normal Bowel Sounds - Extremities Exam Extremities Exam: Joint Swelling, Pedal Edema - Back Exam Back Exam: absent: CVA tenderness (L), CVA tenderness (R), paraspinal tenderness - Neurological Exam Neurological Exam: Alert, Awake - Psychiatric Exam Psychiatric exam: Normal Affect, Normal Mood - Skin Skin Exam: Dry, Intact, Normal Color, Warm Assessment and Plan - Assessment and Plan (Free Text) Assessment: 81 year old male with a Past medical history of Diabetes, Prostate Ca, Hypertension, Dyslipidemia, ureteral stent who presents with lower extremity swelling for 3 days and is found to have a DVT in the common femoral vein. He will be admitted for therapeutic anticoagulation. 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 -start a heparin drip on 12/20 -bridge to coumadin -increased coumadin to 10mg -clotting factors -received -INR today 1.06 slight increase 2) Diabetes - -ISS -levemir 30 units PM and monitor -fingersticks ACHS 3) Hypertension stable on 12/21 -Losartan 50mg daily 4) Prostate Ca - -casodex 50mg 5) Dyslipidemia - lipitor 20mg po hs 6) Acute on chronic kidney injury - will provide light IVF hydration @ 100cc/hr and re-check bmp in the AM tomorrow 7)Abdominal Fullness on exam CT Abd/Pel w/o contrast - see full report -thickening of the posterior wall of the urinary bladder on the right -Interval development of enlarged lymph nodes along pelivc side note -Stable hypodense adrenal nodule on the right. 8)Constipation Miralax 17gm PO daily Colace 100mg PO daily 8) PPX -Zofran -O2 NC 2L -Consistent Carb Diet -Vital Signs q8 -Asp precautions <Nacho Wise - Last Filed: 12/22/16 19:06> Objective - Vital Signs/Intake and Output Vital Signs (last 24 hours): Temp Pulse Resp BP Pulse Ox 98.6 F 81 20 141/68 95 12/22/16 16:42 12/22/16 16:42 12/22/16 16:42 12/22/16 16:42 12/22/16 16:42 - Medications Medications: Current Medications Atorvastatin Calcium (Lipitor) 20 mg PO DIN [facility] Last Admin: 12/22/16 17:01 Dose: 20 mg Bicalutamide (Casodex) 50 mg PO DAILY [facility] Last Admin: 12/22/16 09:27 Dose: 50 mg Docusate Sodium (Colace) 100 mg PO DAILY [facility] Last Admin: 12/22/16 12:15 Dose: 100 mg Heparin Sodium/Sodium Chloride (Heparin 92562 Units/250ml 1/2 Normal Saline) 25 ,000 units in 250 mls @ 15.627 mls/hr IV .Q16H PRN; Protocol; 18 UNITS/KG/HR PRN Reason: ADJUST RATE PER PROTOCOL Last Admin: 12/22/16 01:13 Dose: 11.05 units/kg/hr, 9.593 mls/hr Insulin Detemir (Levemir) 30 unit SC [facility] Last Admin: 12/21/16 21:11 Dose: 30 unit Insulin Human Regular (Humulin R Med) 0 units SC [facility] PRN Reason: Protocol Last Admin: 12/22/16 17:01 Dose: 3 units Losartan Potassium (Cozaar) 50 mg PO DAILY [facility] Last Admin: 12/22/16 09:22 Dose: 50 mg Ondansetron HCl (Zofran Inj) 4 mg IVP Q6H PRN PRN Reason: Nausea/Vomiting Polyethylene Glycol (Miralax) 17 gm PO DAILY [facility] Last Admin: 12/22/16 12:15 Dose: 17 gm Sodium Chloride ([place] Nasal [place]) 0 ml NS Q3 PRN PRN Reason: Nasal congestion Warfarin Sodium (Coumadin) 10 mg PO 1800 MANNIE PRN Reason: Protocol Last Admin: 12/22/16 17:01 Dose: 10 mg - Labs Labs: 12/22/16 07:00 12/21/16 03:00 PT 11.5 Seconds (9.9-11.8) 12/22/16 07:00 INR 1.06 (0.93-1.08) 12/22/16 07:00 APTT 52.3 Seconds (23.7-30.8) H 12/22/16 07:00 Attending/Attestation - Attestation I have personally seen and examined this patient.: Yes I have fully participated in the care of the patient.: Yes I have reviewed all pertinent clinical information, including history, physical exam and plan: Yes Notes (Text): I have seen and examined patient at bedside. 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 Patient reports that swelling has resolved. CT abdomen and pelvis pending. Creatinine is stable around 2.2. Upon discharge patient will follow up with Dr Marina, Dr Bauer and Dr Cooney. Dr Nacho Wise
[2016-12-22] MEDS: Insulin Detemir 100 units/ml Vial (Levemir) SC SCH (23:08)
[2016-12-23] MEDS: Heparin25000 units/250ml 1/2NS 25,000 UNITS/250 ML BAG IV PRN (03:35)
[2016-12-23 03:58] LABS: B2 GLYCOPROTEIN I AB(IGA) <9 SAU (<=20); B2 GLYCOPROTEIN I AB(IGG) <9 SGU (<=20); B2 GLYCOPROTEIN I AB(IGM) <9 SMU (<=20); CARDIOLIPIN AB (IGA) <11 APL (<=11)
[2016-12-23 06:29] LABS: ADD MANUAL DIFF? NO
[2016-12-23 06:34] LABS: BASO # 0.05 K/mm3 (0.0-2.0); BASO % 0.8 % (0.0-3.0); EOS # 0.2 (0.0-0.7); EOS % 3.5 % (1.5-5.0); GRAN # 3.86 (1.4-6.5); GRAN % 61.1 % (50.0-68.0); HEMATOCRIT 34.7 % (42.0-52.0); LYMPH # 1.4 (1.2-3.4); LYMPH % 21.9 % (22.0-35.0); MEAN CELL VOLUME 86.1 fL (80.0-105.0); MEAN CORPUSCULAR HEMOGLOBIN 29.3 pg (25.0-35.0); MEAN PLATELET VOLUME 9.6 fl (7.0-11.0); MONO # 0.8 (0.1-0.6); MONO % 12.7 % (1.0-6.0); PLATELET COUNT 242 10^3/uL (120.0-450.0); RED CELL DISTRIBUTION WIDTH 13.6 % (11.5-14.5); WHITE BLOOD COUNT 6.3 10^3/ul (4.5-11.0)
[2016-12-23 06:51] LABS: INR 1.53 (0.93-1.08)
[2016-12-23 07:01] LABS: ALB/GLOB RATIO 0.9 (1.1-1.8); BILIRUBIN,TOTAL 0.6 mg/dL (0.2-1.3); CALCIUM 9.4 mg/dL (8.4-10.5); POTASSIUM 4.1 mmol/L (3.6-5.0); TOTAL PROTEIN 8.2 g/dL (5.8-8.3)
[2016-12-23] MEDS: Insulin Reg-MEDIUM-Coverage SC SCH ×3 (08:25→16:27)
[2016-12-23] MEDS: POLYETHYLENE GLYCOL 3350 17 GM/Dose PACKET PO SCH (09:46)
--- NOTE | 2016-12-23 11:28 | CP.PCM.PN ---
<Izzy Freeman - Last Filed: 12/23/16 13:32> Subjective - Date & Time of Evaluation Date of Evaluation: 12/23/16 Time of Evaluation: 11:27 - Subjective Subjective: HOSPITALISTS PROGRESS NOTE Pt is seen and examined at bedside. He states that his LE swelling is improving. Denies having any CP, SOB, LE pain, abd pain, N/V/D/C. Patient is tolerating diet and is having regular BMs. Patient is able to walk to bathroom without assistance. Objective - Vital Signs/Intake and Output Vital Signs (last 24 hours): Temp Pulse Resp BP Pulse Ox 98.3 F 99 H 20 154/83 H 97 12/23/16 06:00 12/23/16 09:23 12/23/16 06:00 12/23/16 09:23 12/23/16 06:00 Intake and Output: 12/23/16 12/23/16 06:59 18:59 Intake Total 660 Output Total 1300 Balance -640 - Medications Medications: Current Medications Atorvastatin Calcium (Lipitor) 20 mg PO DIN [facility] Last Admin: 12/22/16 17:01 Dose: 20 mg Bicalutamide (Casodex) 50 mg PO DAILY [facility] Last Admin: 12/23/16 09:45 Dose: 50 mg Docusate Sodium (Colace) 100 mg PO DAILY [facility] Last Admin: 12/23/16 09:46 Dose: Not Given Heparin Sodium/Sodium Chloride (Heparin 41032 Units/250ml 1/2 Normal Saline) 25 ,000 units in 250 mls @ 15.627 mls/hr IV .Q16H PRN; Protocol; 18 UNITS/KG/HR PRN Reason: ADJUST RATE PER PROTOCOL Last Admin: 12/23/16 03:35 Dose: 11.05 units/kg/hr, 9.593 mls/hr Insulin Detemir (Levemir) 30 unit SC HS [facility] Last Admin: 12/22/16 23:08 Dose: 30 unit Insulin Human Regular (Humulin R Med) 0 units SC ACHS [facility] PRN Reason: Protocol Last Admin: 12/23/16 08:25 Dose: 1 units Losartan Potassium (Cozaar) 50 mg PO DAILY [facility] Last Admin: 12/23/16 09:23 Dose: 50 mg Ondansetron HCl (Zofran Inj) 4 mg IVP Q6H PRN PRN Reason: Nausea/Vomiting Polyethylene Glycol (Miralax) 17 gm PO DAILY [facility] Last Admin: 12/23/16 09:46 Dose: Not Given Sodium Chloride ([place] Nasal [place]) 0 ml NS Q3 PRN PRN Reason: Nasal congestion Warfarin Sodium (Coumadin) 10 mg PO 1800 MANNIE PRN Reason: Protocol Last Admin: 12/22/16 17:01 Dose: 10 mg - Labs Labs: 12/23/16 06:10 12/23/16 06:10 PT 16.5 Seconds (9.9-11.8) H 12/23/16 06:10 INR 1.53 (0.93-1.08) H 12/23/16 06:10 APTT 56.9 Seconds (23.7-30.8) H 12/23/16 06:10 - Constitutional Appears: Non-toxic, No Acute Distress - Head Exam Head Exam: ATRAUMATIC - ENT Exam ENT Exam: Mucous Membranes Moist - Respiratory Exam Respiratory Exam: Clear to Ausculation Bilateral, NORMAL BREATHING PATTERN. absent: Rales, Rhonchi, Wheezes - Cardiovascular Exam Cardiovascular Exam: REGULAR RHYTHM, RRR, +S1, +S2. absent: Gallop, Rubs, Murmur - GI/Abdominal Exam GI & Abdominal Exam: Soft, Normal Bowel Sounds. absent: Distended, Firm, Guarding, Rigid, Tenderness - Extremities Exam Extremities Exam: Pedal Edema. absent: Tenderness Additional comments: left lower extremity swelling noted 2+ - Neurological Exam Neurological Exam: Alert, Awake, Oriented x3 - Psychiatric Exam Psychiatric exam: Normal Affect, Normal Mood - Skin Skin Exam: Dry, Intact, Normal Color, Warm Assessment and Plan - Assessment and Plan (Free Text) Assessment: 81 year old male with a Past medical history of Diabetes, Prostate Ca, Hypertension, Dyslipidemia, ureteral stent who presents with lower extremity swelling for 3 days and is found to have a DVT in the common femoral vein. He will be admitted for therapeutic anticoagulation. 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 Marina is consulted. Per Dr. Marina, recommended coumadin for anticoagulation after weighing benefits and risks (reversibility of agent vs. checking INR regularly). Recommended patient to follow up with PMD outpatient for medication adjustment. - I spoke with patient's over the phone and explained the anticoagulant options to her and discussed the recommendation made by Dr. Marina. -heparin drip started on 12/20 - Coumadin 10 mg po qd. INR today is 1.53. Will continue to trend -clotting factors -received 2) Diabetes - -ISS -levemir 30 units PM and monitor -fingersticks ACHS - HgbA1c is 10.3 3) Hypertension stable on 12/21 -Losartan 50mg daily 4) Prostate Ca - -casodex 50mg - Urology, Dr. Corona is consulted. Dr. Corona was made aware of CT findings. Awaiting further recs 5) Dyslipidemia - -lipitor 20mg po hs 6) Acute on chronic kidney injury - -Will continue to monitor - Nephrology, Dr. Cooney is consulted 7)Abdominal Fullness on exam - CT of abd/pelvis 12/22: showed thickening of posterior bladder on right associated with ureterovesicular junction. Associated thickening of right seminal vesicles. Interval development of enlarged lymph nodes along pelvic wall on left side. Scattered small retroperitoneal lymph nodes. 8)Constipation Miralax 17gm PO daily Colace 100mg PO daily 9) PPX -Zofran -Consistent Carb Diet -Vital Signs q8 -Asp precautions Case discussed with attending, Dr. Costello <Damion Costello - Last Filed: 12/23/16 17:08> Objective - Vital Signs/Intake and Output Vital Signs (last 24 hours): Temp Pulse Resp BP Pulse Ox 98 F 76 18 140/70 98 12/23/16 16:00 12/23/16 16:00 12/23/16 16:00 12/23/16 16:00 12/23/16 16:00 Intake and Output: 12/23/16 12/23/16 06:59 18:59 Intake Total 660 360 Output Total 1300 300 Balance -640 60 - Medications Medications: Current Medications Atorvastatin Calcium (Lipitor) 20 mg PO DIN [facility] Last Admin: 12/23/16 17:00 Dose: 20 mg Bicalutamide (Casodex) 50 mg PO DAILY [facility] Last Admin: 12/23/16 09:45 Dose: 50 mg Docusate Sodium (Colace) 100 mg PO DAILY [facility] Last Admin: 12/23/16 09:46 Dose: Not Given Heparin Sodium/Sodium Chloride (Heparin 22185 Units/250ml 1/2 Normal Saline) 25 ,000 units in 250 mls @ 15.627 mls/hr IV .Q16H PRN; Protocol; 18 UNITS/KG/HR PRN Reason: ADJUST RATE PER PROTOCOL Last Admin: 12/23/16 03:35 Dose: 11.05 units/kg/hr, 9.593 mls/hr Insulin Detemir (Levemir) 30 unit SC HS [facility] Last Admin: 12/22/16 23:08 Dose: 30 unit Insulin Human Regular (Humulin R Med) 0 units SC ACHS [facility] PRN Reason: Protocol Last Admin: 12/23/16 16:27 Dose: 3 units Losartan Potassium (Cozaar) 50 mg PO DAILY [facility] Last Admin: 12/23/16 09:23 Dose: 50 mg Ondansetron HCl (Zofran Inj) 4 mg IVP Q6H PRN PRN Reason: Nausea/Vomiting Polyethylene Glycol (Miralax) 17 gm PO DAILY [facility] Last Admin: 12/23/16 09:46 Dose: Not Given Sodium Chloride ([place] Nasal [place]) 0 ml NS Q3 PRN PRN Reason: Nasal congestion Warfarin Sodium (Coumadin) 10 mg PO 1800 [facility] PRN Reason: Protocol Last Admin: 12/23/16 17:00 Dose: 10 mg - Labs Labs: 12/23/16 06:10 12/23/16 06:10 PT 16.5 Seconds (9.9-11.8) H 12/23/16 06:10 INR 1.53 (0.93-1.08) H 12/23/16 06:10 APTT 56.9 Seconds (23.7-30.8) H 12/23/16 06:10 Attending/Attestation - Attestation I have personally seen and examined this patient.: Yes I have fully participated in the care of the patient.: Yes I have reviewed all pertinent clinical information, including history, physical exam and plan: Yes Notes (Text): 12/23/16 17:06 attending note; Patient seen and examined with the resident. 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 INR is subtherapeutic .continue IV heparin . CT abdomen and pelvis showed thickening of the posterior wall of urinary bladder.urology evaluation with DR. brownlee requested. Physical therapy evaluation requested, Creatinine is stable around 2.2. Upon discharge patient will follow up with oncology and PMD Dr. Bauer. 12/23/16 17:07
--- NOTE | 2016-12-23 15:35 | CP.PCM.DIS ---
<Izzy Freeman - Last Filed: 12/23/16 15:32> Provider - Provider Date of Admission: 12/20/16 02:04 Attending physician: Damion Costello MD Primary care physician: Dr. Wilkerson Consults: Heme/onc: Dr. Marina [employer]: Dr. Cooney Urologist: Dr. Corona Time Spent in preparation of Discharge (in minutes): 45 Diagnosis - Discharge Diagnosis (1) Prostate CA Status: Chronic (2) Hyperlipidemia Status: Chronic (3) DVT (deep venous thrombosis) Status: Acute (4) Hypertension Status: Chronic (5) Diabetes mellitus Status: Chronic Hospital Course - Lab Results Lab Results: Most Recent Lab Values WBC 6.3 10^3/ul (4.5-11.0) 12/23/16 06:10 RBC 4.03 10^6/uL (3.5-6.1) 12/23/16 06:10 Hgb 11.8 gm/dL (14.0-18.0) L 12/23/16 06:10 Hct 34.7 % (42.0-52.0) L 12/23/16 06:10 MCV 86.1 fL (80.0-105.0) 12/23/16 06:10 MCH 29.3 pg (25.0-35.0) 12/23/16 06:10 MCHC 34.0 g/dl (31.0-37.0) 12/23/16 06:10 RDW 13.6 % (11.5-14.5) 12/23/16 06:10 Plt Count 242 10^3/uL (120.0-450.0) 12/23/16 06:10 MPV 9.6 fl (7.0-11.0) 12/23/16 06:10 Gran % 61.1 % (50.0-68.0) 12/23/16 06:10 Lymph % (Auto) 21.9 % (22.0-35.0) L 12/23/16 06:10 [place] % (Auto) 12.7 % (1.0-6.0) H 12/23/16 06:10 Eos % (Auto) 3.5 % (1.5-5.0) 12/23/16 06:10 Baso % (Auto) 0.8 % (0.0-3.0) 12/23/16 06:10 Gran # 3.86 (1.4-6.5) 12/23/16 06:10 Lymph # 1.4 (1.2-3.4) 12/23/16 06:10 [place] # 0.8 (0.1-0.6) H 12/23/16 06:10 Eos # 0.2 (0.0-0.7) 12/23/16 06:10 Baso # 0.05 K/mm3 (0.0-2.0) 12/23/16 06:10 PT 16.5 Seconds (9.9-11.8) H 12/23/16 06:10 INR 1.53 (0.93-1.08) H 12/23/16 06:10 APTT 56.9 Seconds (23.7-30.8) H 12/23/16 06:10 Sodium 137 mmol/L (132-148) 12/23/16 06:10 Potassium 4.1 mmol/L (3.6-5.0) 12/23/16 06:10 Chloride 102 mmol/L (98-107) 12/23/16 06:10 Carbon Dioxide 23 mmol/L (21-33) 12/23/16 06:10 Anion Gap 16 (10-20) 12/23/16 06:10 BUN 35 mg/dL (7-21) H 12/23/16 06:10 Creatinine 2.1 mg/dL (0.5-1.4) H 12/23/16 06:10 Est GFR ( Amer) 37 12/23/16 06:10 Est GFR (Non-Af Amer) 31 12/23/16 06:10 POC Glucose (mg/dL) 195 mg/dL (65-110) H 12/21/16 15:43 Random Glucose 157 mg/dL (70-110) H 12/23/16 06:10 Hemoglobin A1c 10.3 % (4.2-6.5) H 12/21/16 03:00 Calcium 9.4 mg/dL (8.4-10.5) 12/23/16 06:10 Total Bilirubin 0.6 mg/dL (0.2-1.3) 12/23/16 06:10 AST 29 U/L (15-59) 12/23/16 06:10 ALT 33 U/L (7-56) 12/23/16 06:10 Alkaline Phosphatase 163 U/L (38-133) H 12/23/16 06:10 Total Protein 8.2 g/dL (5.8-8.3) 12/23/16 06:10 Albumin 3.9 g/dL (3.0-4.8) 12/23/16 06:10 Globulin 4.3 gm/dL 12/23/16 06:10 Albumin/Globulin Ratio 0.9 (1.1-1.8) L 12/23/16 06:10 Vvll-0-Aaphxexzpuii Ab <9 DEMIAN (<=20) 12/20/16 08:40 Beta-2 GPI IgG Ab <9 SGU (<=20) 12/20/16 08:40 Beta-2 GPI IgM Ab <9 SMU (<=20) 12/20/16 08:40 Anti-Cardiolipin IgG Ab <14 GPL (<=14) 12/20/16 08:40 Anti-Cardiolipin IgA Ab <11 APL (<=11) 12/20/16 08:40 Anti-Cardiolipin IgM Ab <12 MPL (<=12) 12/20/16 08:40 - Hospital Course Hospital Course: 81 year old male with a Past medical history of Prostate Ca s/p hormone therapy , 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 Patient states that he noticed his leg visibly becoming more and more swollen so he came to the emergency department. He denies complaints of pain, numbness or tingling to the leg. He did not have any trauma or bites to the leg, denies recent travel but does admit to being more sedentary than usual due to having trouble sleeping at night which causes him to lay down during the day. The increase in his sedentary behavior has occurred over the past 1 week. He denies any complaints of chest pain, fever, chills, shortness of breath, palpitations, abdominal pain, nausea, vomiting, diarrhea or dysuria. On admission, LE US showed DVT in left common femoral vein. Patient was started on heparin drip. Heme/onc was consulted and recommended starting coumadin. Per heme/onc recommendation, coumadin was started for anticoagulation after weighing benefits and risks (reversibility of agent vs. checking INR regularly). Heme/onc recommended patient to follow up with PMD outpatient for medication adjustment. CXR on admission was negative for active disease. Nephrology was also consulted. Patient had abdominal fullness during hospital stay. A CT of chest/abd/pelvis showed thickening of posterior bladder on right associated with ureterovesicular junction. Associated thickening of right seminal vesicles; interval development of enlarged lymph nodes along pelvic wall on left side; scattered small retroperitoneal lymph nodes. Urology , Dr. Corona was consulted and was made aware of the CT findings. Patient's swelling of L LE is slowly improving. Please see EMR for full details. Patient was transferred to TCU for further physical rehabilitation and continuation of bridging to coumadin. - Date & Time of H&P Date of H&P: 12/23/16 Time of H&P: 15:35 Discharge Exam - Head Exam Head Exam: ATRAUMATIC - Eye Exam Eye Exam: EOMI - ENT Exam ENT Exam: Mucous Membranes Moist - Respiratory Exam Respiratory Exam: Clear to PA & Lateral, NORMAL BREATHING PATTERN. absent: Rales, Rhonchi, Wheezes - Cardiovascular Exam Cardiovascular Exam: REGULAR RHYTHM, +S1, +S2. absent: Gallop, Rubs, Systolic Murmur - GI/Abdominal Exam GI & Abdominal Exam: Distended, Normal Bowel Sounds, Soft, Unremarkable. absent : Firm, Guarding, Rigid, Tenderness - Extremities Exam Additional comments: Left lower extremity edema - Neurological Exam Neurological exam: Alert, Oriented x3 - Psychiatric Exam Psychiatric exam: Normal Affect, Normal Mood - Skin Skin Exam: Dry, Intact, Normal Color, Warm Discharge Plan - Follow Up Plan Condition: FAIR Disposition: TRANSF TO SNF Instructions: Deep Venous Thrombosis (DC) Additional Instructions: Transferred to TCU Referrals: Mike Wilkerson MD [Family Provider] - Ravinder Marina MD [Medical Doctor] - Jorge Brownlee MD [Staff Provider] - <Damion Costello - Last Filed: 12/24/16 14:50> Provider - Provider Date of Admission: 12/20/16 02:04 Attending physician: Damion Costello MD Hospital Course - Lab Results Lab Results: Most Recent Lab Values WBC 6.3 10^3/ul (4.5-11.0) 12/23/16 06:10 RBC 4.03 10^6/uL (3.5-6.1) 12/23/16 06:10 Hgb 11.8 gm/dL (14.0-18.0) L 12/23/16 06:10 Hct 34.7 % (42.0-52.0) L 12/23/16 06:10 MCV 86.1 fL (80.0-105.0) 12/23/16 06:10 MCH 29.3 pg (25.0-35.0) 12/23/16 06:10 MCHC 34.0 g/dl (31.0-37.0) 12/23/16 06:10 RDW 13.6 % (11.5-14.5) 12/23/16 06:10 Plt Count 242 10^3/uL (120.0-450.0) 12/23/16 06:10 MPV 9.6 fl (7.0-11.0) 12/23/16 06:10 Gran % 61.1 % (50.0-68.0) 12/23/16 06:10 Lymph % (Auto) 21.9 % (22.0-35.0) L 12/23/16 06:10 [place] % (Auto) 12.7 % (1.0-6.0) H 12/23/16 06:10 Eos % (Auto) 3.5 % (1.5-5.0) 12/23/16 06:10 Baso % (Auto) 0.8 % (0.0-3.0) 12/23/16 06:10 Gran # 3.86 (1.4-6.5) 12/23/16 06:10 Lymph # 1.4 (1.2-3.4) 12/23/16 06:10 [place] # 0.8 (0.1-0.6) H 12/23/16 06:10 Eos # 0.2 (0.0-0.7) 12/23/16 06:10 Baso # 0.05 K/mm3 (0.0-2.0) 12/23/16 06:10 PT 16.5 Seconds (9.9-11.8) H 12/23/16 06:10 INR 1.53 (0.93-1.08) H 12/23/16 06:10 APTT 56.9 Seconds (23.7-30.8) H 12/23/16 06:10 Protein C Activity 121 % (70-180) 12/20/16 08:40 Protein S Activity 132 % (70-150) 12/20/16 08:40 Antithrombin III Activ 94 % activity (80-120) 12/20/16 08:40 Sodium 137 mmol/L (132-148) 12/23/16 06:10 Potassium 4.1 mmol/L (3.6-5.0) 12/23/16 06:10 Chloride 102 mmol/L (98-107) 12/23/16 06:10 Carbon Dioxide 23 mmol/L (21-33) 12/23/16 06:10 Anion Gap 16 (10-20) 12/23/16 06:10 BUN 35 mg/dL (7-21) H 12/23/16 06:10 Creatinine 2.1 mg/dL (0.5-1.4) H 12/23/16 06:10 Est GFR ( Amer) 37 12/23/16 06:10 Est GFR (Non-Af Amer) 31 12/23/16 06:10 POC Glucose (mg/dL) 228 mg/dL (65-110) H 12/23/16 21:35 Random Glucose 157 mg/dL (70-110) H 12/23/16 06:10 Hemoglobin A1c 10.3 % (4.2-6.5) H 12/21/16 03:00 Calcium 9.4 mg/dL (8.4-10.5) 12/23/16 06:10 Total Bilirubin 0.6 mg/dL (0.2-1.3) 12/23/16 06:10 AST 29 U/L (15-59) 12/23/16 06:10 ALT 33 U/L (7-56) 12/23/16 06:10 Alkaline Phosphatase 163 U/L (38-133) H 12/23/16 06:10 Total Protein 8.2 g/dL (5.8-8.3) 12/23/16 06:10 Albumin 3.9 g/dL (3.0-4.8) 12/23/16 06:10 Globulin 4.3 gm/dL 12/23/16 06:10 Albumin/Globulin Ratio 0.9 (1.1-1.8) L 12/23/16 06:10 Yjcv-4-Vssmyzrxwrps Ab <9 DEMIAN (<=20) 12/20/16 08:40 Beta-2 GPI IgG Ab <9 SGU (<=20) 12/20/16 08:40 Beta-2 GPI IgM Ab <9 SMU (<=20) 12/20/16 08:40 Anti-Cardiolipin IgG Ab <14 GPL (<=14) 12/20/16 08:40 Anti-Cardiolipin IgA Ab <11 APL (<=11) 12/20/16 08:40 Anti-Cardiolipin IgM Ab <12 MPL (<=12) 12/20/16 08:40 Attending/Attestation - Attestation I have personally seen and examined this patient.: Yes I have fully participated in the care of the patient.: Yes I have reviewed all pertinent clinical information, including history, physical exam and plan: Yes Notes (Text): 12/24/16 14:49 Patient seen and examined with the resident. 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 INR is subtherapeutic .continue IV heparin . CT abdomen and pelvis showed thickening of the posterior wall of urinary bladder.urology evaluation with DR. brownlee requested. Physical therapy evaluation requested, Creatinine is stable around 2.2. Upon discharge patient will follow up with oncology and PMD Dr. Bauer. Transferred to TCU today. Diagnosis; DVT History of prostate cancer Chronic kidney disease
--- NOTE | 2016-12-23 16:00 | PN ---
DATE: 12/23/2016 SUBJECTIVE: The patient is seen lying in bed. He is awake, he is alert, comfortable. He has no com plaints. PHYSICAL EXAMINATION: GENERAL: Elderly male, lying in bed. VITAL SIGNS: Blood pressure 154/83, heart rate 99, respiratory rate 20, temperature 98.3. HEENT: Normocephalic, atraumatic. NECK: Supple, no JVD. LUNGS: Bilateral equal air entry, no rales. CARDIAC: S1, S2, regular rate and rhythm, no murmur, no rub. ABDOMEN: Soft, nondistended, nontender, bowel sounds present. EXTREMITIES: No lower extremity edema. LABORATORY DATA: WBC 6, hemoglobin 11.8, hematocrit 34.7, platelets 242. Sodium 137, potassium 4.1, chloride 102, CO2 23, BUN 35, creatinine 2.1, glucose 157, calcium 9.4, AST 29, ALT 33. Hemoglobin A1c 10.3. CURRENT MEDICATIONS: Casodex, Colace, Coumadin, losartan 50, heparin, insulin, Levemir, Lipitor, [place] aLax, Zofran. ASSESSMENT: 1. Resolved acute kidney injury. 2. Stable chronic kidney disease stage IV. 3. Left lower extremity deep venous thrombosis. 4. Non-insulin dependent diabetes mellitus. 5. Hypertension. 6. History of prostate cancer/bladder tumor. PLAN: 1. Push p.o. fluids. 2. Avoid nephrotoxins. 3. Continue current antihypertensives. 4. Continue heparin and Coumadin. Clare Cooney MD cc: [id number] TT: 12/23/2016 15:59:42 Confirmation # [id number] Dictation # [id number] en
[2016-12-23 16:36] VITALS: BP 140/70; PULSE 76; RESP 18; TEMP 98; O2SAT 98
[2016-12-24 22:47] LABS: PHOSPHATIDYLSERINE AB IGA <20 U/mL (<20); PHOSPHATIDYLSERINE AB IGM <25 U/mL (<25)
--- NOTE | 2016-12-25 13:35 | CARD ---
APPROVED REPORT EXAM: Two-dimensional and M-mode echocardiogram with Doppler and color Doppler. INDICATION Dyspnea 2D DIMENSIONS Left Atrium (2D)3.3 (1.6-4.0cm)IVSd1.3 (0.7-1.1cm) LVDd3.8 (3.9-5.9cm)PWd1.2 (0.7-1.1cm) LVDs2.7 (2.5-4.0cm)FS (%) 28.1 % LVEF (%)55.1 (>50%) M-Mode DIMENSIONS Aortic Root2.90 (2.2-3.7cm)Aortic Cusp Exc.1.90 (1.5-2.0cm) Aortic Valve AoV Peak Djgojtug272.0cm/Crystal Peak GR.5mmHg Mitral Valve MV E Mxrchsqk22.8cm/sMV A Oquzkzjf09.6cm/sE/A ratio0.6 TDI E/Lateral E'0.0E/Medial E'0.0 Tricuspid Valve TR Peak [id number]/sRAP [id number] Peak Gr.17mmHg [id number] LEFT VENTRICLE The left ventricle is normal size. There is mild concentric left ventricular hypertrophy. The left ventricular function is normal. The left ventricular ejection fraction is within the normal range. There is normal LV segmental wall motion. Transmitral Doppler flow pattern is Grade I-abnormal relaxation pattern. RIGHT VENTRICLE The right ventricle is normal size. There is normal right ventricular wall thickness. The right ventricular systolic function is normal. ATRIA The left atrium size is normal. The right atrium size is normal. AORTIC VALVE The aortic valve is mildly thickened. No aortic regurgitation is present. There is no aortic valvular stenosis. MITRAL VALVE The mitral valve is normal in structure. There is no mitral valve regurgitation noted. There is no mitral valve stenosis. TRICUSPID VALVE The tricuspid valve is normal in structure. There is no pulmonary hypertension. 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 PERICARDIAL EFFUSION There is a trace loculated anterior pericardial effusion. <Conclusion> The left ventricle is normal size. There is mild concentric left ventricular hypertrophy. The left ventricular function is normal. The left ventricular ejection fraction is within the normal range. There is normal LV segmental wall motion. Transmitral Doppler flow pattern is Grade I-abnormal relaxation pattern. 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
== END 2016-12-23 17:37 | DRG 300 ==
LOC: ED 23:50 → ERH 12-20 02:04 → 3RNO 12-20 04:10
PROVIDERS: ADMIT Hospitalist; ATTEND Internal Medicine
DX: I82.412 Acute embolism and thrombosis of left femoral vein (principal); N17.9 Acute kidney failure, unspecified; N18.4 Chronic kidney disease, stage 4 (severe); E11.22 Type 2 diabetes mellitus with diabetic chronic kidney disease; C61 Malignant neoplasm of prostate; I12.9 Hypertensive chronic kidney disease with stage 1 through stage 4 chronic kidney disease, or unspecified chronic kidney disease; E78.5 Hyperlipidemia, unspecified; Z80.0 Family history of malignant neoplasm of digestive organs; K59.00 Constipation, unspecified; Z79.84 Long term (current) use of oral hypoglycemic drugs; Z83.3 Family history of diabetes mellitus; N32.9 Bladder disorder, unspecified

== ENCOUNTER 2016-12-23 17:37 | Inpatient (IN) | payer OTHER, BC ==
[2016-12-23] MEDS ORDERED: Heparin25000 units/250ml 1/2NS 25,000 UNITS/250 ML BAG IV PRN (20:13)
[2016-12-23] MEDS ORDERED: Heparin25000 units/250ml 1/2NS 25,000 UNITS/250 ML BAG IV SCH (20:15)
[2016-12-23 21:33] VITALS: BMI 29.5
[2016-12-23] MEDS ORDERED: Pneumococcal 23-Valent Vaccine IM ONE (21:33)
[2016-12-23] MEDS: Insulin Reg-MEDIUM-Coverage SC SCH (22:21)
[2016-12-23] MEDS: Insulin Detemir 100 units/ml Vial (Levemir) SC SCH (22:21)
[2016-12-24] MEDS: Insulin Reg-MEDIUM-Coverage SC SCH ×4 (06:32→21:47)
[2016-12-24 07:08] LABS: ALB/GLOB RATIO 0.9 (1.1-1.8); BILIRUBIN,TOTAL 0.7 mg/dL (0.2-1.3); CALCIUM 9.5 mg/dL (8.4-10.5); HEMATOCRIT 35.6 % (42.0-52.0); MEAN CELL VOLUME 86.4 fL (80.0-105.0); MEAN CORPUSCULAR HEMOGLOBIN 28.9 pg (25.0-35.0); MEAN CORPUSCULAR HGB CONC 33.4 g/dl (31.0-37.0); MEAN PLATELET VOLUME 9.7 fl (7.0-11.0); POTASSIUM 4.1 mmol/L (3.6-5.0); RED CELL DISTRIBUTION WIDTH 13.9 % (11.5-14.5); TOTAL PROTEIN 8.6 g/dL (5.8-8.3); WHITE BLOOD COUNT 6.1 10^3/ul (4.5-11.0)
[2016-12-24 07:42] LABS: INR 2.85 (0.93-1.08)
[2016-12-24 07:44] LABS: PARTIAL THROMBOPLASTIN TIME 81.4 Seconds (23.7-30.8)
[2016-12-24] MEDS: POLYETHYLENE GLYCOL 3350 17 GM/Dose PACKET PO SCH (10:24)
--- NOTE | 2016-12-24 13:20 | CP.PCM.HP ---
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 Patient was started on heparin drip. Heme/onc was consulted and recommended starting coumadin. Per heme/onc recommendation, coumadin was started for anticoagulation after weighing benefits and risks (reversibility of drug vs. checking INR regularly). Heme/onc recommended patient to follow up with PMD outpatient for medication adjustment. CXR on admission was negative for active disease. Nephrology was also consulted. Patient had abdominal fullness during hospital stay. A CT of chest/abd/pelvis showed thickening of posterior bladder on right associated with ureterovesicular junction; associated thickening of right seminal vesicles; interval development of enlarged lymph nodes along pelvic wall on left side; scattered small retroperitoneal lymph nodes. Urology , Dr. Corona was consulted and was made aware of the CT findings. Patient's swelling of L LE is slowly improving and at this point he was transferred to TCU. Patient denies having any CP, SOB, abd pain, N/V/D/C, urinary complaints, REDDY, F/C, LE pain. PMhx: stated above Sx: history of nephrostomy tube due to a bladder mass; now with a ureteral stent NKDA Meds: See OCT PMD: Dr. Wilkerson Social: denies ETOH drug or tobacco use Present on Admission - Present on Admission Any Indicators Present on Admission: Yes History of DVT/PE: Yes Review of Systems - Review of Systems All systems: reviewed and no additional remarkable complaints except Past Patient History - Infectious Disease Hx of Infectious Diseases: None - Tetanus Immunizations Tetanus Immunization: Unknown - Past Medical History & Family History Past Medical History?: Yes - Past Social History Smoking Status: Former Smoker Chewing Tobacco Use: No Cigar Use: No Alcohol: None Drugs: Denies Home Situation {Lives}: With Family - CARDIAC Hx Cardiac Disorders: Yes Hx Hypercholesterolemia: Yes Hx Hypertension: Yes - PULMONARY Hx Respiratory Disorders: No - NEUROLOGICAL Hx Neurological Disorder: No - HEENT Hx HEENT Problems: Yes Hx Cataracts: Yes (bilateral surgery) - RENAL Hx Chronic Kidney Disease: Yes (ureteral tumor, 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) - ENDOCRINE/METABOLIC Hx Diabetes Mellitus Type 2: Yes - HEMATOLOGICAL/ONCOLOGICAL Hx Blood Disorders: Yes Hx Shingles: Yes (6 years ago) - INTEGUMENTARY Hx Dermatological Problems: No - MUSCULOSKELETAL/RHEUMATOLOGICAL Hx Falls: No - GASTROINTESTINAL Hx Gastrointestinal Disorders: No (COLON POLYP) - GENITOURINARY/GYNECOLOGICAL Hx Genitourinary Disorders: No Hx Reproductive Disorders: Yes (PROSTATE CA) - PSYCHIATRIC Hx Psychophysiologic Disorder: No - SURGICAL HISTORY Hx Surgeries: Yes (colon polyp removal) - ANESTHESIA Hx Anesthesia Reactions: No Hx Malignant Hyperthermia: No Meds Allergies/Adverse Reactions: Allergies Allergy/AdvReac Type Severity Reaction Status Date / Time No Known Allergies Allergy Verified 12/23/16 21:18 Physical Exam - Constitutional Appears: Well, No Acute Distress - Eye Exam Eye Exam: EOMI Pupil Exam: PERRL - ENT Exam ENT Exam: Mucous Membranes Moist - Respiratory Exam Respiratory Exam: Clear to Auscultation Bilateral, NORMAL BREATHING PATTERN. absent: Accessory Muscle Use, Rales, Rhonchi, Wheezes, Respiratory Distress - Cardiovascular Exam Cardiovascular Exam: REGULAR RHYTHM, RRR, +S1, +S2. absent: Diastolic murmur, Gallop, Rubs, Systolic Murmur - GI/Abdominal Exam GI & Abdominal Exam: Normal Bowel Sounds, Soft. absent: Distended, Firm, Guarding, Rigid, Tenderness - Extremities Exam Extremities exam: Negative for: pedal edema, tenderness - Neurological Exam Neurological exam: Alert, Oriented x3 - Psychiatric Exam Psychiatric exam: Normal Affect, Normal Mood - Skin Skin Exam: Dry, Intact, Normal Color, Warm Results - Vital Signs Recent Vital Signs: Last Vital Signs Temp 98.3 F 12/24/16 10:00 Pulse 100 H 12/24/16 11:06 Resp 16 12/24/16 10:00 BP 144/81 12/24/16 10:00 Pulse Ox 96 12/24/16 10:00 - Labs Result Diagrams: 12/24/16 06:30 12/24/16 06:30 Labs: Laboratory Results - last 24 hr 12/24/16 12/24/16 12/24/16 05:25 06:30 06:30 WBC 6.1 RBC 4.12 Hgb 11.9 L Hct 35.6 L MCV 86.4 MCH 28.9 MCHC 33.4 RDW 13.9 Plt Count 260 MPV 9.7 PT 30.8 H* INR 2.85 H APTT 81.4 H* Sodium Potassium Chloride Carbon Dioxide Anion Gap BUN Creatinine Est GFR ( Amer) Est GFR (Non-Af Amer) POC Glucose (mg/dL) 139 H Random Glucose Calcium Total Bilirubin AST ALT Alkaline Phosphatase Total Protein Albumin Globulin Albumin/Globulin Ratio 12/24/16 06:30 WBC RBC Hgb Hct MCV MCH MCHC RDW Plt Count MPV PT INR APTT Sodium 138 Potassium 4.1 Chloride 103 Carbon Dioxide 25 Anion Gap 14 BUN 33 H Creatinine 2.2 H Est GFR ( Amer) 35 Est GFR (Non-Af Amer) 29 POC Glucose (mg/dL) Random Glucose 117 H Calcium 9.5 Total Bilirubin 0.7 AST 66 H ALT 60 H Alkaline Phosphatase 168 H Total Protein 8.6 H Albumin 4.1 Globulin 4.4 Albumin/Globulin Ratio 0.9 L Assessment & Plan - Assessment and Plan (Free Text) Assessment: 81 year old male with a Past medical history of Diabetes, Prostate Ca, Hypertension, Dyslipidemia, ureteral stent who presents with lower extremity swelling for 3 days and is found to have a DVT in the common femoral vein. 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 Marina is consulted. - Stopped heparin today as patient has therapeutic INR - Coumadin qd and will adjust based on INR 2) Diabetes - -ISS -levemir 30 units PM and monitor -fingersticks ACHS - HgbA1c is 10.3 3) Hypertension stable on 12/21 -Losartan 50mg daily 4) Prostate Ca - - Patient will follow up with heme/onc, Dr. Marina upon discharge. Dr. Marina is made aware of CT findings - casodex 50mg - Urology, Dr. Corona is consulted. Dr. Corona was made aware of CT findings. Awaiting further recs. Recommend pt to follow up with Dr. Machado upon discharge 5) Dyslipidemia -lipitor 20mg po hs 6) Acute on chronic kidney injury - -Will continue to monitor - Nephrology, Dr. Cooney is consulted 7)Abdominal Fullness on exam - CT of abd/pelvis 12/22: showed thickening of posterior bladder on right associated with ureterovesicular junction. Associated thickening of right seminal vesicles. Interval development of enlarged lymph nodes along pelvic wall on left side. Scattered small retroperitoneal lymph nodes. 8)Constipation Miralax 17gm PO daily Colace 100mg PO daily 9) PPX -Zofran -Consistent Carb Diet Case discussed with attending, Dr. Costello - Date & Time Date: 12/24/16 Time: 13:20 <Damion Costello - Last Filed: 12/25/16 14:44> Results - Vital Signs Recent Vital Signs: Last Vital Signs Temp 98.2 F 12/25/16 10:00 Pulse 83 12/25/16 10:25 Resp 16 12/25/16 10:00 BP 146/86 12/25/16 10:25 Pulse Ox 99 12/25/16 10:00 - Labs Result Diagrams: 12/24/16 06:30 12/25/16 06:45 Labs: Laboratory Results - last 24 hr 12/24/16 12/24/16 12/24/16 11:11 16:44 21:33 PT INR Sodium Potassium Chloride Carbon Dioxide Anion Gap BUN Creatinine Est GFR ( Amer) Est GFR (Non-Af Amer) POC Glucose (mg/dL) 233 H 208 H 214 H Random Glucose Calcium Total Bilirubin AST ALT Alkaline Phosphatase Total Protein Albumin Globulin Albumin/Globulin Ratio 12/25/16 12/25/16 06:45 06:45 PT 46.9 H* INR 4.34 H* Sodium 138 Potassium 4.6 Chloride 103 Carbon Dioxide 25 Anion Gap 15 BUN 32 H Creatinine 2.2 H Est GFR ( Amer) 35 Est GFR (Non-Af Amer) 29 POC Glucose (mg/dL) Random Glucose 127 H Calcium 9.4 Total Bilirubin 0.6 AST 77 H ALT 79 H Alkaline Phosphatase 169 H Total Protein 8.3 Albumin 3.9 Globulin 4.3 Albumin/Globulin Ratio 0.9 L Attending/Attestation - Attestation I have personally seen and examined this patient.: Yes I have fully participated in the care of the patient.: Yes I have reviewed all pertinent clinical information: Yes Notes (Text): 12/25/16 14:24 attending note; Patient seen and examined with resident. 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 Patient was started on heparin drip. Heme/onc was consulted and recommended starting coumadin. Currently patient is in TCU getting therapy. Patient will follow-up with urology and oncology Dr. Marina. Patient will follow up with PMD Dr. Wilkerson.
--- NOTE | 2016-12-24 14:05 | CON ---
DATE: 12/23/2016 CHIEF COMPLAINT: Leg swelling. HISTORY OF PRESENT ILLNESS: I was asked to see this 81-year-old male with a history of metastatic pr ostate cancer who was admitted after being found to have reportedly bilateral DVTs. The patient has a history of chronic kidney disease. He has a right ureteral stent in place which was placed antegra de as it was unable to be placed cystoscopically. The patient presented complaining of increasing bi lateral lower extremity swelling. He reports he has been voiding without difficulty, although he vasquez s have some urinary frequency. He reports a good force of urinary stream. He denies any dysuria. H e does have some urgency. He denies any flank pain, fever or chills. A consultation was requeste d regarding the above. PAST MEDICAL HISTORY: Significant for diabetes, hypertension, metastatic prostate cancer, chronic ki dney disease stage IV, hyperlipidemia. MEDICATIONS: At home include insulin, Hyzaar, Casodex and Lipitor. ALLERGIES: No known drug allergies. FAMILY HISTORY: Noncontributory. SOCIAL HISTORY: No smoking, no ETOH or drug use. REVIEW OF SYSTEMS: A 12-point review of systems was obtained. Positives for lower extremity swellin g, positive for some low back pain. The patient reports other systems are negative. PHYSICAL EXAMINATION: GENERAL: The patient is seen in his room. He is awake, alert and answering questions. He is in no acute distress. VITAL SIGNS: He is afebrile. Temp of 98.5, pulse 93, BP 134/70, respirations 18. NECK: Supple. There is no adenopathy noted. CHEST: Reveals normal inspiratory effort. CARDIAC: Positive S1, S2. ABDOMEN: Soft, nontender, nondistended. There is no hepatosplenomegaly. There is no costovertebral angle tenderness. GENITOURINARY: Phallus is normal. Scrotum is normal. Testes bilaterally descended, somewhat atroph ic. Epididymides are normal. EXTREMITIES: There is lower extremity edema, left greater than right. LABORATORY EXAMINATION: There is no recent urinalysis done. PSA of 1.2 from 11/09/2015. RADIOLOGIC EXAMINATION: The patient had a CT scan of the abdomen and pelvis done on 12/21. CT scan s howed both kidneys to have multiple cysts. There is air in a ureteral stent noted on the right with mild left hydronephrosis. Urinary bladder shows thickening of the wall which could be due to under d istention or cystitis. Prostate gland was not significantly enlarged. There were bilateral seminal vesicles which were thickened on the right. There is interval development of enlarged lymph nodes al gino the right pelvic side arroyo largest measuring about 2.7 x 2.8 cm. There are scattered small retr operitoneal lymph nodes also noted. IMPRESSION AND PLAN: This is an 81-year-old male with reportedly metastatic prostate cancer. The pa tiefroy has an indwelling stent due to an obstructive hydronephrosis. Urologically, the plan for now w ould be to obtain a PSA to see where the patient is at regarding his prostate cancer. He is on Casod ex and I would assume he is on hormonal therapy. I will need to check his office records to see holly pack he is regarding his treatment. He appears to be voiding without difficulty at this time. He does have a history of chronic kidney disease and there was no pertinent blood work available; however, he is being followed by nephrology. He has no obvious hydronephrosis on the CT report. I would plan o n checking a urine for culture and sensitivity. The patient is going to be anticoagulated for the ap parent deep venous thrombosis. He does have an indwelling stent and this will likely cause some poss ible hematuria. The patient reports he has been following up in the office. He should continue to d o that once this acute episode has resolved and he should continue with further treatment for his met astatic prostate cancer. Thank you for allowing me to participate in the care of this patient. No acute urologic intervention appears necessary at this time and patient should continue to follow up with us as an outpatient. Andrez Corona MD cc: [phone] TT: 12/24/2016 14:04:34 Confirmation # [id number] Dictation # [id number] tn
[2016-12-24 16:11] VITALS: O2SAT 99
[2016-12-24] MEDS: Insulin Detemir 100 units/ml Vial (Levemir) SC SCH (21:47)
[2016-12-25] MEDS: Insulin Reg-MEDIUM-Coverage SC SCH ×2 (06:52→12:30)
[2016-12-25 07:43] LABS: ALB/GLOB RATIO 0.9 (1.1-1.8); BILIRUBIN,TOTAL 0.6 mg/dL (0.2-1.3); CALCIUM 9.4 mg/dL (8.4-10.5); POTASSIUM 4.6 mmol/L (3.6-5.0); TOTAL PROTEIN 8.3 g/dL (5.8-8.3)
[2016-12-25 08:01] LABS: INR 4.34 (0.93-1.08)
[2016-12-25 10:20] VITALS: BP 146/86; PULSE 83; RESP 16; TEMP 98.2
[2016-12-25] MEDS: POLYETHYLENE GLYCOL 3350 17 GM/Dose PACKET PO SCH (10:26)
--- NOTE | 2016-12-25 11:03 | CP.PCM.DIS ---
<Izzy Freeman - Last Filed: 12/25/16 10:58> Provider - Provider Date of Admission: 12/23/16 17:37 Attending physician: Damion Costello MD Primary care physician: Dr. Wilkerson Consults: Nephro: Dr. Cooney Heme/onc: Dr. Marina Urology: Dr. Corona Time Spent in preparation of Discharge (in minutes): 45 Diagnosis - Discharge Diagnosis (1) DVT (deep venous thrombosis) Status: Acute (2) Chronic kidney disease Status: Chronic (3) Diabetes mellitus Status: Chronic (4) Hyperlipidemia Status: Chronic (5) Hypertension Status: Chronic (6) Prostate CA Status: Chronic Hospital Course - Lab Results Lab Results: Most Recent Lab Values WBC 6.1 10^3/ul (4.5-11.0) 12/24/16 06:30 RBC 4.12 10^6/uL (3.5-6.1) 12/24/16 06:30 Hgb 11.9 gm/dL (14.0-18.0) L 12/24/16 06:30 Hct 35.6 % (42.0-52.0) L 12/24/16 06:30 MCV 86.4 fL (80.0-105.0) 12/24/16 06:30 MCH 28.9 pg (25.0-35.0) 12/24/16 06:30 MCHC 33.4 g/dl (31.0-37.0) 12/24/16 06:30 RDW 13.9 % (11.5-14.5) 12/24/16 06:30 Plt Count 260 10^3/uL (120.0-450.0) 12/24/16 06:30 MPV 9.7 fl (7.0-11.0) 12/24/16 06:30 PT 46.9 Seconds (9.9-11.8) H* 12/25/16 06:45 INR 4.34 (0.93-1.08) H* 12/25/16 06:45 APTT 81.4 Seconds (23.7-30.8) H* 12/24/16 06:30 Sodium 138 mmol/L (132-148) 12/25/16 06:45 Potassium 4.6 mmol/L (3.6-5.0) 12/25/16 06:45 Chloride 103 mmol/L (98-107) 12/25/16 06:45 Carbon Dioxide 25 mmol/L (21-33) 12/25/16 06:45 Anion Gap 15 (10-20) 12/25/16 06:45 BUN 32 mg/dL (7-21) H 12/25/16 06:45 Creatinine 2.2 mg/dL (0.5-1.4) H 12/25/16 06:45 Est GFR ( Amer) 35 12/25/16 06:45 Est GFR (Non-Af Amer) 29 12/25/16 06:45 POC Glucose (mg/dL) 214 mg/dL (65-110) H 12/24/16 21:33 Random Glucose 127 mg/dL (70-110) H 12/25/16 06:45 Calcium 9.4 mg/dL (8.4-10.5) 12/25/16 06:45 Total Bilirubin 0.6 mg/dL (0.2-1.3) 12/25/16 06:45 AST 77 U/L (15-59) H 12/25/16 06:45 ALT 79 U/L (7-56) H 12/25/16 06:45 Alkaline Phosphatase 169 U/L (38-133) H 12/25/16 06:45 Total Protein 8.3 g/dL (5.8-8.3) 12/25/16 06:45 Albumin 3.9 g/dL (3.0-4.8) 12/25/16 06:45 Globulin 4.3 gm/dL 12/25/16 06:45 Albumin/Globulin Ratio 0.9 (1.1-1.8) L 12/25/16 06:45 Hepatitis A IgM Ab Negative (NEGATIVE) 12/24/16 07:00 Hep Bs Antigen Negative (NEGATIVE) 12/24/16 07:00 Hep B Core IgM Ab Negative (NEGATIVE) 12/24/16 07:00 Hepatitis C Antibody Negative (NEGATIVE) 12/24/16 07:00 - Hospital Course Hospital Course: 81 year old male with past medical history of prostate Ca s/p hormone therapy, 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 Patient was started on heparin drip. Heme/onc was consulted and recommended starting coumadin. Per heme/onc recommendation, coumadin was started for anticoagulation after weighing benefits and risks (reversibility of drug vs. checking INR regularly). Heme/onc recommended patient to follow up outpatient for medication adjustment. CXR on admission was negative for active disease. Nephrology was also consulted. Patient had abdominal fullness during hospital stay. A CT of chest/abd/pelvis showed thickening of posterior bladder on right associated with ureterovesicular junction; associated thickening of right seminal vesicles; interval development of enlarged lymph nodes along pelvic wall on left side; scattered small retroperitoneal lymph nodes. Urology, Dr. Corona was consulted and was made aware of the CT findings. Patient's swelling of L LE is slowly improving and at this point he was transferred to TCU for further physical rehabilitation and monitoring of INR. On day of discharge, patient's INR was 4.34. Patient and were explained that coumadin is to be on hold for 2 days (day of discharge and the next day) and patient is to follow up with Dr. Marina in 2 days in his office for repeat INR test. At that time, patient will be instructed by Dr. Marina on how to take the coumadin. Upon discharge, patient is to follow up with PMD, Dr. Wilkerson. Patient is to follow up with [employer] Q[employer] Analyst/oncologist, Dr. Marina upon discharge. Patient has a follow up appointment on Friday with Dr. Marina in his office in [address] [place] [address]. At that time, patient will have his INR checked and given instructions on how to take coumadin. Patient is to follow up with Urologist, Dr. Machado upon discharge. Patient is discharged with the following medications: Simvastatin 5 mg po DIN, Casodex 50 mg PO QD, Levemir 30 units SC HS 1 Vial, Cozaar 50 mg po qd, Miralax 17 gm po QD, Coumadin 5 mg po qd. Hold coumadin until Friday. Medications scripts are sent to [facility] in [place]. Medication instructions are explained in detail to patient and his . - Date & Time of H&P Date of H&P: 12/25/16 Time of H&P: 10:59 Discharge Exam - Eye Exam Eye Exam: EOMI - ENT Exam ENT Exam: Mucous Membranes Moist - Respiratory Exam Respiratory Exam: Clear to PA & Lateral, NORMAL BREATHING PATTERN. absent: Rales, Rhonchi, Wheezes - Cardiovascular Exam Cardiovascular Exam: REGULAR RHYTHM, +S1, +S2. absent: Diastolic murmur, Systolic Murmur - GI/Abdominal Exam GI & Abdominal Exam: Normal Bowel Sounds, Soft, Unremarkable. absent: Distended , Firm, Guarding, Rigid, Tenderness - Extremities Exam Additional comments: no edema or tenderness - Neurological Exam Neurological exam: Alert, Oriented x3 - Psychiatric Exam Psychiatric exam: Normal Affect, Normal Mood - Skin Skin Exam: Dry, Intact, Normal Color, Warm Discharge Plan - Discharge Medications Prescriptions: Bicalutamide [Casodex] 50 mg PO DAILY #30 Insulin Detemir [Levemir] 30 unit SC HS #1 vial Losartan [Cozaar] 50 mg PO DAILY #30 tab Polyethylene Glycol 3350 [Miralax] 17 gm PO DAILY #30 packet Simvastatin 5 mg PO DIN #30 tablet Warfarin [Coumadin] 5 mg PO 1800 #30 tab - Follow Up Plan Condition: GOOD Disposition: HOME/ ROUTINE Instructions: Deep Venous Thrombosis (DC) Additional Instructions: Upon discharge, patient is to follow up with PMD, Dr. Wilkerson. Patient is to follow up with [facility] Qa Analyst/oncologist, Dr. Marina upon discharge. Patient has a follow up appointment on Friday with Dr. Marina in his office in [address] [place] [address]. At that time, patient will have his INR checked and given instructions on how to take coumadin. Patient is to follow up with Urologist, Dr. Machado upon discharge. Patient is discharged with the following medications: Simvastatin 5 mg po DIN, Casodex 50 mg PO QD, Levemir 30 units SC HS 1 Vial, Cozaar 50 mg po qd, Miralax 17 gm po QD, Coumadin 5 mg po qd. Hold coumadin until Friday. Medications scripts are sent to [facility] in [place]. Medication instructions are explained in detail to patient and his . Referrals: Ravinder Marina MD [Medical Doctor] - Jorge Machado MD [Staff Provider] - Mike Wilkerson MD [Family Provider] - <Damion Costello - Last Filed: 12/25/16 14:55> Provider - Provider Date of Admission: 12/23/16 17:37 Attending physician: Damion Costello MD Hospital Course - Lab Results Lab Results: Most Recent Lab Values WBC 6.1 10^3/ul (4.5-11.0) 12/24/16 06:30 RBC 4.12 10^6/uL (3.5-6.1) 12/24/16 06:30 Hgb 11.9 gm/dL (14.0-18.0) L 12/24/16 06:30 Hct 35.6 % (42.0-52.0) L 12/24/16 06:30 MCV 86.4 fL (80.0-105.0) 12/24/16 06:30 MCH 28.9 pg (25.0-35.0) 12/24/16 06:30 MCHC 33.4 g/dl (31.0-37.0) 12/24/16 06:30 RDW 13.9 % (11.5-14.5) 12/24/16 06:30 Plt Count 260 10^3/uL (120.0-450.0) 12/24/16 06:30 MPV 9.7 fl (7.0-11.0) 12/24/16 06:30 PT 46.9 Seconds (9.9-11.8) H* 12/25/16 06:45 INR 4.34 (0.93-1.08) H* 12/25/16 06:45 APTT 81.4 Seconds (23.7-30.8) H* 12/24/16 06:30 Sodium 138 mmol/L (132-148) 12/25/16 06:45 Potassium 4.6 mmol/L (3.6-5.0) 12/25/16 06:45 Chloride 103 mmol/L (98-107) 12/25/16 06:45 Carbon Dioxide 25 mmol/L (21-33) 12/25/16 06:45 Anion Gap 15 (10-20) 12/25/16 06:45 BUN 32 mg/dL (7-21) H 12/25/16 06:45 Creatinine 2.2 mg/dL (0.5-1.4) H 12/25/16 06:45 Est GFR ( Amer) 35 12/25/16 06:45 Est GFR (Non-Af Amer) 29 12/25/16 06:45 POC Glucose (mg/dL) 214 mg/dL (65-110) H 12/24/16 21:33 Random Glucose 127 mg/dL (70-110) H 12/25/16 06:45 Calcium 9.4 mg/dL (8.4-10.5) 12/25/16 06:45 Total Bilirubin 0.6 mg/dL (0.2-1.3) 12/25/16 06:45 AST 77 U/L (15-59) H 12/25/16 06:45 ALT 79 U/L (7-56) H 12/25/16 06:45 Alkaline Phosphatase 169 U/L (38-133) H 12/25/16 06:45 Total Protein 8.3 g/dL (5.8-8.3) 12/25/16 06:45 Albumin 3.9 g/dL (3.0-4.8) 12/25/16 06:45 Globulin 4.3 gm/dL 12/25/16 06:45 Albumin/Globulin Ratio 0.9 (1.1-1.8) L 12/25/16 06:45 Hepatitis A IgM Ab Negative (NEGATIVE) 12/24/16 07:00 Hep Bs Antigen Negative (NEGATIVE) 12/24/16 07:00 Hep B Core IgM Ab Negative (NEGATIVE) 12/24/16 07:00 Hepatitis C Antibody Negative (NEGATIVE) 12/24/16 07:00 Attending/Attestation - Attestation I have personally seen and examined this patient.: Yes I have fully participated in the care of the patient.: Yes I have reviewed all pertinent clinical information, including history, physical exam and plan: Yes Notes (Text): 12/25/16 14:52 attending note; Patient seen and examined with resident. 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 Patient was started on heparin drip. Heme/onc was consulted and started on coumadin. INR elevated. hold till friday. Patient will get INR checked on Friday at Dr. Marina's office. Adjust Coumadin accordingly. Currently patient is in TCU getting therapy. Patient will follow-up with urology and oncology Dr. Marina. Patient will follow up with PMD Dr. Wilkerson. diagnosis; Left lower extremity DVT Prostate Cancer Bladder wall thickening history of ureteral stent placement CKD
== END 2016-12-25 13:56 | disposition home or self-care (01) | DRG 300 ==
LOC: TRCU 17:37
PROVIDERS: ADMIT Hospitalist; ATTEND Internal Medicine
PROC: F07Z9ZZ Gait Training/Functional Ambulation Treatment (ICD-10-PCS; principal; 2016-12-24)
PROC: F08Z4ZZ Home Management Treatment (ICD-10-PCS; 2016-12-24)
DX: I82.412 Acute embolism and thrombosis of left femoral vein (principal); N18.4 Chronic kidney disease, stage 4 (severe); E11.22 Type 2 diabetes mellitus with diabetic chronic kidney disease; N13.30 Unspecified hydronephrosis; C61 Malignant neoplasm of prostate; I12.9 Hypertensive chronic kidney disease with stage 1 through stage 4 chronic kidney disease, or unspecified chronic kidney disease; E78.5 Hyperlipidemia, unspecified; K59.00 Constipation, unspecified; N32.9 Bladder disorder, unspecified; R59.9 Enlarged lymph nodes, unspecified; Z79.01 Long term (current) use of anticoagulants; Z93.6 Other artificial openings of urinary tract status

== ENCOUNTER 2017-03-16 12:11 | Inpatient (IN) | payer MEDICARE, BC ==
--- NOTE | 2017-03-16 12:43 | ED PDOC ---
Arrival/HPI - General Chief Complaint: Shortness Of Breath Time Seen by Provider: 03/16/17 12:15 Historian: Patient, EMS, Other (shy) - Critical Care Critical Care Minutes: 60 minutes - History of Present Illness Narrative History of Present Illness (Text): 03/16/17 12:51 An 81 year old male, whose past medical history includes prostate cancer, diabetes and bladder mass s/p nephrostomy tube removal but with right ureteral stent in place at this time, was brought in by EMS for shortness of breath that developed early this morning. Patient states he also had chest pain. Landlord said patient vomited once. EMS was called and patient was found to be in SVT and given 6 mg of adenosine. Patient reports improvement of symptoms, but still feels some shortness of breath. Denies any cough, fever, abdominal pain, dizziness or any other complaints at this time. PMD: Dr. Wilkerson Urologist: Dr. Jeannette Damon/Onc; Dr. 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) - Endocrine/Metabolic Hx Diabetes Mellitus Type 1: Yes - Hematological/Oncological Hx Blood Disorders: Yes Hx Shingles: Yes (6 years ago) - Integumentary Hx Dermatological Disorder: No - Musculoskeletal/Rheumatological Hx Falls: No - Gastrointestinal Hx Gastrointestinal Disorders: No (COLON POLYP) - Genitourinary/Gynecological Hx Genitourinary Disorders: No Hx Reproductive Disorders: Yes (PROSTATE CA) - Psychiatric Hx Psychophysiologic Disorder: No Hx Substance Use: No - Surgical History Other/Comment: right nephrostomy drainage tube 10/2015 - Anesthesia Hx Anesthesia Reactions: No Hx Malignant Hyperthermia: No - Suicidal Assessment Feels Threatened In Home Enviroment: No Family/Social History - Physician Review Nursing Documentation Reviewed: Yes Family/Social History: No Known Family HX Smoking Status: Former Smoker Hx Alcohol Use: No Hx Substance Use: No Allergies/Home Meds Allergies/Adverse Reactions: Allergies No Known Allergies Allergy (Verified 12/23/16 21:18) Review of Systems - Physician Review All systems were reviewed & negative as marked: Yes - Review of Systems Constitutional: absent: Fevers Respiratory: SOB. absent: Cough Cardiovascular: Chest Pain Gastrointestinal: Vomiting. absent: Abdominal Pain Neurological: absent: Dizziness Physical Exam Vital Signs Reviewed: Yes Vital Signs Temp Pulse Resp BP Pulse Ox 03/16/17 14:11 103.3 F H 131 H 18 182/80 H 98 03/16/17 13:00 18 03/16/17 12:11 97.1 F L 100 H 20 176/86 H 96 Temperature: Febrile Blood Pressure: Hypertensive Pulse: Tachycardic Respiratory Rate: Normal Appearance: Positive for: Ill-Appearing Pain Distress: None Mental Status: Positive for: Alert and Oriented X 3 - Systems Exam Head: Present: Atraumatic, Normocephalic Pupils: Present: PERRL Conjunctiva: Present: Normal Mouth: Present: Dry, Other (blood residue on tongue) Pharnyx: Present: Normal. No: ERYTHEMA, EXUDATE Respiratory/Chest: Present: Clear to Auscultation, Good Air Exchange. No: Respiratory Distress, Accessory Muscle Use Cardiovascular: Present: Normal S1, S2, Tachycardic Abdomen: Present: Distention, Normal Bowel Sounds. No: Tenderness, Peritoneal Signs Rectal: Present: Other (brown stool, guaiac negative) Back: Present: CVA Tenderness (b/L) Upper Extremity: Present: Normal Inspection. No: Cyanosis, Edema Lower Extremity: Present: Other (trace edema bilaterally) Neurological: Present: GCS=15, CN II-XII Intact, Speech Normal Skin: Present: Warm, Dry, Normal Color. No: Rashes Psychiatric: Present: Alert, Oriented x 3 Medical Decision Making ED Course and Treatment: 03/16/17 12:55 Impression: An 81 year old male with shortness of breath. Differential Diagnosis included but are not limited to: pulmonary embolism vs. congestive heart failure vs. sepsis vs. anemia/GI Bleed vs. pneumonia vs. renal insufficiency vs. electrolyte abnormality vs. chronic obstructive pulmonary disease Plan: -- EKG -- chest xray -- US lower extremity -- CT abd/pelvis -- labs -- Urinalysis -- Zosyn, Zofran, IV fluids, Tylenol, Pepcid, Vancomycin -- Reassess and disposition Prior Visits: Notes and results from previous visits were reviewed. Patient was last seen in the emergency department on 12/20/16 for evaluation of leg swelling. Patient was admitted to [facility] for DVT. Progress Notes: EKG: Ordered, reviewed, and independently interpreted the EKG. Rate : 132 BPM Rhythm : Sinus tachycardic Interpretation : right bundle branch block, left axis deviation, QRS 134, other intervals are normal Comparison : No new ST/T changes compared with EKG from 08/05/16 03/16/17 14:02 chest xray Creator : Uriah Garnica MD IMPRESSION: No active disease. 03/16/17 14:54 CT Abdomen and Pelvis without intravenous contrast Creator : Uriah Garnica MD IMPRESSION: Increased size of left pelvic obturator lymph node. New left-sided hydroureter and hydronephrosis Right-sided ureteral stent. New perinephric stranding around the right kidney. Possible pyelonephritis. 03/16/17 15:38 Initial recorded temp was normal, but later rectal temp found to be 103.3 - patient with 4/4 SIRS criteria, consistent with sepsis. CXR with no acute findings. Labs showing worsening renal function. H/H is unremarkable. INR is 3.47. CT a/p showing left side hydro with left side pelvic node and R side perinephric stranding for possible pyelonephritis. Patient given hydration and iv antibiotics. Lactic acid normal with no hypotension, so no code sepsis. Case discussed with Dr. Weiner, who said he would hold on assigning patient to operating room for potential stent removal at this time and to continue with IVF and IV antibiotics; said Dr. Machado will be back tomorrow. Case was seen by Dr. Nicolas Wise for ICU admission. Case also discusseed with Dr. Costello for admission on the hospitalist's service. - Lab Interpretations Lab Results: 03/16/17 12:35 03/16/17 13:10 Lab Results 03/16/17 14:30: Urine Color Red, Urine Appearance Cloudy, Urine pH 6.5, Ur Specific [place] 1.020, Urine Protein 100 H, Urine Glucose (UA) 500 H, Urine Ketones Negative, Urine Blood Large H, Urine Nitrate Positive H, Urine Bilirubin Small H, Urine Urobilinogen 0.2, Ur Leukocyte Esterase Large H, Urine RBC Tntc, Urine WBC 15 - 20, Ur Epithelial Cells 4 - 5, Urine Bacteria Mod 03/16/17 13:10: pCO2 21 L, pO2 63.0 L, HCO3 13.6 L, ABG pH 7.42, ABG Total CO2 14.2 L, ABG O2 Saturation 94.5 L, ABG Base Excess -8.6 L, ABG Potassium 2.6 L, Sodium 139.0, Chloride 117.0 H, Glucose 199 H, Lactate 1.7, FiO2 21.0, Arterial Blood Potassium 2.6 L 03/16/17 13:10: Sodium 135, Chloride 104, Potassium 3.9, Carbon Dioxide 18 L, Anion Gap 17, BUN 58 H, Creatinine 3.6 H, Est GFR ( Amer) 20, Est GFR ( Non-Af Amer) 16, Random Glucose 249 H, Calcium 8.9, Magnesium 2.0, Total Bilirubin 0.9, AST 26, ALT 22, Alkaline Phosphatase 221 H, Lactate Dehydrogenase 697, Total Creatine Kinase 63, Troponin I < 0.01, NT-Pro-B Natriuret Pep 1070 H, Total Protein 7.7, Albumin 3.7, Globulin 4.0, Albumin/ Globulin Ratio 0.9 L, Lipase 475 H 03/16/17 12:35: PT 37.5 H*, INR 3.47 H, APTT 36.2 H 03/16/17 12:35: WBC 2.5 L* D, RBC 4.20, Hgb 12.4 L, Hct 35.6 L, MCV 84.8, MCH 29.5, MCHC 34.8, RDW 12.5, Plt Count 187, MPV 9.9, Neutrophils % (Manual) 69, Band Neutrophils % 2, Lymphocytes % (Manual) 20 L, Monocytes % (Manual) 5, Eosinophils % (Manual) 4 H I have reviewed the lab results: Yes - RAD Interpretation Radiology Orders: 03/16/17 12:37 DUPLEX LOWER EXTRM VEIN BILAT [US] Stat 03/16/17 12:38 CHEST PORTABLE [RAD] Stat 03/16/17 13:44 ABD & PELVIS W/O PO OR IV CONT [CT] Stat - EKG Interpretation Interpreted by ED Physician: Yes Type: 12 lead EKG - Medication Orders Current Medication Orders: Discontinued Medications Acetaminophen (Tylenol 650 Mg Supp) 975 mg RC STAT STA Stop: 03/16/17 13:49 Last Admin: 03/16/17 14:05 Dose: 975 mg Famotidine (Pepcid) 20 mg IVP STAT STA Stop: 03/16/17 13:45 Last Admin: 03/16/17 14:06 Dose: 20 mg Sodium Chloride (Sodium Chloride 0.9%) 1,000 mls @ 999 mls/hr IV .Q1H1M STA Stop: 03/16/17 14:50 Vancomycin HCl 1 gm/ Sodium (Chloride) 250 mls @ 133.333 mls/hr IV STAT STA PRN Reason: Protocol Stop: 03/16/17 15:43 Piperacillin Sod/Tazobactam Sod (Zosyn 2.25 Gm In 0.9% 100 Ml) 2.25 gm in 100 mls @ 100 mls/hr IVPB STAT STA PRN Reason: Protocol Stop: 03/16/17 14:52 Last Admin: 03/16/17 14:07 Dose: 100 mls/hr Ondansetron HCl (Zofran Inj) 4 mg IVP STAT STA Stop: 03/16/17 13:31 Last Admin: 03/16/17 14:05 Dose: 4 mg - Scribe Statement The provider has reviewed the documentation as recorded by the Inyd Proctor Provider Scribe Attestation: All medical record entries made by the Scribsirena were at my direction and personally dictated by me. I have reviewed the chart and agree that the record accurately reflects my personal performance of the history, physical exam, medical decision making, and the department course for this patient. I have also personally directed, reviewed, and agree with the discharge instructions and disposition. Disposition/Present on Arrival - Present on Arrival Any Indicators Present on Arrival: Yes History of DVT/PE: Yes History of Uncontrolled Diabetes: No Urinary Catheter: No History of Decub. Ulcer: No History Surgical Site Infection Following: None - Disposition Have Diagnosis and Disposition been Completed?: Yes Diagnosis: Sepsis, Hydronephrosis, Elevated INR, Urinary tract infection Disposition: HOSPITALIZED Disposition Time: 14:50 Patient Plan: Admission, ICU Condition: CRITICAL
[2017-03-16 13:03] LABS: HEMOGLOBIN 12.4 gm/dL (14.0-18.0); MEAN CELL VOLUME 84.8 fL (80.0-105.0); MEAN CORPUSCULAR HEMOGLOBIN 29.5 pg (25.0-35.0); MEAN CORPUSCULAR HGB CONC 34.8 g/dl (31.0-37.0); MEAN PLATELET VOLUME 9.9 fl (7.0-11.0); PLATELET COUNT 187 10^3/uL (120.0-450.0); RED CELL DISTRIBUTION WIDTH 12.5 % (11.5-14.5)
[2017-03-16 13:08] LABS: INR 3.47 (0.93-1.08); PARTIAL THROMBOPLASTIN TIME 36.2 Seconds (23.7-30.8); PROTHROMBIN TIME 37.5 Seconds (9.9-11.8)
[2017-03-16 13:12] LABS: WHITE BLOOD COUNT 2.5 10^3/ul (4.5-11.0)
[2017-03-16 13:25] LABS: ALB/GLOB RATIO 0.9 (1.1-1.8); ALBUMIN 3.7 g/dL (3.0-4.8); ALT/SGPT 22 U/L (7-56); AST/SGOT 26 U/L (15-59); BLOOD UREA NITROGEN 58 mg/dL (7-21); CALCIUM 8.9 mg/dL (8.4-10.5); GFR AFRICAN-AMERICAN 20; GFR NON-AFRICAN AMERICAN 16; LIPASE 475 U/L (23-300)
[2017-03-16 13:33] LABS: B-TYPE NATRIURETIC PEPTIDE 1070 pg/mL (0-450)
[2017-03-16 13:38] LABS: TROPONIN I < 0.01 ng/mL
[2017-03-16 13:45] LABS: BAND 2 % (0-2); EOSINOPHIL 4 % (0.0-3.0); LYMPHOCYTE 20 % (22.0-35.0); MONOCYTE 5 % (1.0-6.0); NEUTROPHIL 69 % (50.0-70.0)
[2017-03-16] MEDS ORDERED: Sodium Chloride 0.9% 1,000 ML IV STA (13:50)
[2017-03-16] MEDS ORDERED: Piperacillin/Tazobact 2.25gm 2.25 GM/100 ML BAG IVPB STA (13:53)
--- NOTE | 2017-03-16 14:00 | RAD ---
HISTORY: sob COMPARISON: 12/20/2016 FINDINGS: LUNGS: No active pulmonary disease. PLEURA: No significant pleural effusion identified, no pneumothorax apparent. CARDIOVASCULAR: Mild cardiomegaly. OSSEOUS STRUCTURES: No significant abnormalities. VISUALIZED UPPER ABDOMEN: Normal. OTHER FINDINGS: None. IMPRESSION: No active disease.
[2017-03-16 14:34] LABS: ARTERIAL BLOOD GAS HCO3 13.6 mmol/L (21-28); ARTERIAL BLOOD GAS O2 SAT 94.5 % (95-98); ARTERIAL BLOOD GAS PCO2 21 mm/Hg (35-45); ARTERIAL BLOOD GAS PH 7.42 (7.35-7.45); ARTERIAL BLOOD GAS TCO2 14.2 mmol.L (22-28)
--- NOTE | 2017-03-16 14:53 | CT ---
PROCEDURE: CT Abdomen and Pelvis without intravenous contrast HISTORY: abd distention, sob COMPARISON: None. TECHNIQUE: Without contrast.. Contrast Dose: Radiation dose: Total exam DLP = 1212 mGy-cm. This CT exam was performed using one or more of the following dose reduction techniques: Automated exposure control, adjustment of the mA and/or kV according to patient size, and/or use of iterative reconstruction technique. FINDINGS: LOWER THORAX: Unremarkable. LIVER: Unremarkable. No gross lesion or ductal dilatation. GALLBLADDER AND BILE DUCTS: Unremarkable. PANCREAS: Unremarkable. No gross lesion or ductal dilatation. SPLEEN: Unremarkable. ADRENALS: Unremarkable. No mass. KIDNEYS AND URETERS: There is a right-sided ureteral stent. There is no hydronephrosis. There is a moderate amount of perinephric stranding which was not present on the previous study. This could be secondary to pyelonephritis. Clinical correlation is suggested. There is new left-sided hydronephrosis and hydroureter. There is no evidence of an obstructing stone. There is narrowing of the distal ureter near the UVJ. This probably represents a ureteral stricture. There is also an enlarging left pelvic lymph node which may be affecting the ureter. This measures 3 x 4.7 cm seen on image 162. This has increased in size VASCULATURE: Unremarkable. No aortic aneurysm. BOWEL: Unremarkable. No obstruction. No gross mural thickening. Moderate constipation APPENDIX: Unremarkable. Normal appendix. PERITONEUM: Unremarkable. No free fluid. No free air. LYMPH NODES: Unremarkable. No enlarged lymph nodes. BLADDER: Bladder is decompressed around a Montero catheter. REPRODUCTIVE: Unremarkable. BONES: No acute fracture. OTHER FINDINGS: None. IMPRESSION: Increased size of left pelvic obturator lymph node. New left-sided hydroureter and hydronephrosis Right-sided ureteral stent. New perinephric stranding around the right kidney. Possible pyelonephritis
[2017-03-16 15:40] LABS: PH,URINE 6.5 (4.7-8.0); URINE BILIRUBIN SMALL (NEGATIVE); URINE BLOOD LARGE (NEGATIVE); URINE GLUCOSE (UA) 500 mg/dL (NEGATIVE); URINE LEUKOCYTE ESTERASE LARGE Leu/uL (NEGATIVE); URINE NITRATE POSITIVE (NEGATIVE); URINE PROTEIN 100 mg/dL (<30 mg/dL); URINE UROBILINOGEN 0.2 E.U./dL (<1 E.U./dL)
[2017-03-16 15:48] LABS: URINE APPEARANCE CLOUDY (CLEAR); URINE COLOR RED (YELLOW)
[2017-03-16 15:57] LABS: URINE RBC TNTC /hpf (0-2)
[2017-03-16 15:58] LABS: URINE WBC 15 - 20 /hpf (0-6)
[2017-03-16 15:59] LABS: URINE BACTERIA MOD (NEG)
[2017-03-16] MEDS ORDERED: Phytonadione 10 mg/ml Inj (Adult) SC STA (16:09)
--- NOTE | 2017-03-16 16:42 | CP.CCUPN ---
CCU Subjective - Physician Review Events Since Last Encounter (Free Text): 03/16/17 16:35 81 y/o M presented to the ER w/ SOB, back pain and hematuria . He was found by his landlord to have chills and ams and brought in by EMS. In the ER he received abx and IV fluids and is currently returning from [place] CCU Objective - Physical Exam Head: Positive for: Atraumatic, Normocephalic Pupils: Positive for: PERRL Extroacular Muscles: Positive for: EOMI Conjunctiva: Positive for: Normal Mouth: Positive for: Dry, Other (blood residue on tongue) Pharnyx: Positive for: Normal. Negative for: ERYTHEMA, EXUDATE Respiratory/Chest: Positive for: Clear to Auscultation, Good Air Exchange, Tachypneic. Negative for: Respiratory Distress, Accessory Muscle Use Cardiovascular: Positive for: Normal S1, S2, Tachycardic Abdomen: Positive for: Distention, Normal Bowel Sounds. Negative for: Tenderness, Peritoneal Signs Rectal: Positive for: Other (brown stool, guaiac negative) Back: Positive for: CVA Tenderness (b/L) Upper Extremity: Positive for: Normal Inspection. Negative for: Cyanosis, Edema Lower Extremity: Positive for: Other (trace edema bilaterally) Neurological: Positive for: GCS=15, CN II-XII Intact, Speech Normal Skin: Positive for: Warm, Dry, Normal Color. Negative for: Rashes Psychiatric: Positive for: Alert, Oriented x 3, Normal Concentration - Medications Active Medications: Active Medications Generic Name Dose Route Start Last Admin Trade Name Freq PRN Reason Stop Dose Admin Piperacillin Sod/Tazobactam Sod 2.25 gm in 100 mls @ 100 mls/hr 03/16/17 18: 00 Zosyn 2.25 Gm In 0.9% 100 Ml IVPB 03/17/17 00:59 Q6 MANNIE Protocol Sodium Chloride 1,000 mls @ 100 mls/hr 03/16/17 16:15 Sodium Chloride 0.9% IV .Q10H MANNIE Insulin Human Regular 0 units 03/16/17 16:30 Humulin R Med SC ACHS MANNIE Protocol Ondansetron HCl 4 mg 03/16/17 16:08 Zofran Inj IVP Q4H PRN Nausea/Vomiting Pantoprazole Sodium 40 mg 08/06/17 16:15 Protonix Inj IVP DAILY [facility] Review of Systems - EENT Eyes: UNREMARKABLE Ears: UNREMARKABLE Nose/Mouth/Throat: UNREMARKABLE - Cardiovascular Cardiovascular: UNREMARKABLE - Respiratory Respiratory: UNREMARKABLE - Gastrointestinal Gastrointestinal: UNREMARKABLE - Genitourinary Genitourinary: Dysuria, Urinary Incontinence, Urinary Frequency - Reproductive: Male Reproductive:Male: absent: As Per HPI, Prepubesant, Dyspareunia, Genital Lesions , Genital Pruritis, Pelvic Pain, Sexual Dysfunction, Penile Discharge, Genital Odor, Impotence, On ED Medications, Penile Implant, Other, UNREMARKABLE - Musculoskeletal Musculoskeletal: Myalgias Critical Care Progress Note - Ventilator Checklist Daily Sedation Vacation: Yes Daily Assessment of Readiness to Wean: Yes Assessment/Plan - Assessment and Plan (Free Text) Assessment: 81 y/o M w/ Fevers, back pain, hematuria and SIRS w/ Urine source likely CT abd/ pelvis shows Hydronephrosis and Radiographic signs of Pyelonephritis. Hx of Uretral stent and concern for blockage. IV fluids given, would continue after 30cc / kg to titirate to BP and urine output. IV abx Vanc and Zosyn given. Urology consulted and IR maybe also on standby if there is need for Nephrostomy tube and or stent removal/ placement. Elevated INR w/ minimal bleeding. INR to be lowered in the case of further bleeding or any operating procedure to minimize bleeding. DVT P w/ SCD PPI cc time 65 min
[2017-03-16] MEDS ORDERED: Sodium Chloride 0.9% 2,000 ML IV STA (16:43)
[2017-03-16] MEDS: Morphine 2 mg/ml ISec IVP PRN (17:05)
[2017-03-16] MEDS: Insulin Reg-MEDIUM-Coverage SC SCH ×2 (17:52→22:08)
[2017-03-16] MEDS ORDERED: Piperacillin/Tazobact 2.25gm 2.25 GM/100 ML BAG IVPB SCH (18:00)
[2017-03-16] MEDS: Sodium Chloride 0.9% 1,000 ML IV SCH (19:45)
--- NOTE | 2017-03-16 20:25 | CP.PCM.HP ---
<Bryan Dunham - Last Filed: 03/16/17 20:21> History of Present Illness - History of Present Illness History of Present Illness: 81 year old male with pmh sig for prostate cancer, diabetes, bladder mass s/p nephrostomy tube removal and right ureteral stent placement who complains of bilateral back pain, shortness of breath and general weakness. Notes indicate the patient developed chest pain and shortness of breath prior to admission and was found to have a run of SVT requiring 6mg of adenosine. The patient chest pain symptoms improved upon arrival but he continued to experience abdominal discomfort and back pain bilateral. The patient reported having fever, chills, nausea, dysuria, hematuria symptoms ongoing for the past 24-48 hours. The patient was evaluated in the ED and a CT abdomen and pelvis showed new left sided hydroureter and hydronephrosis. His temperature of 103F, WBC was 2.5, UA was found to be positive for leukocyte esterase and nitrates with elevated heart rate and tachypnia. The patient was treated for urosepsis with IVF, vanc and zosyn. ICU was consulted. The patient was admitted to the hospital and sent to the ICU for further monitoring. Present on Admission - Present on Admission Any Indicators Present on Admission: Yes History of DVT/PE: Yes History of Uncontrolled Diabetes: No Urinary Catheter: No Decubitus Ulcer Present: No Review of Systems - Constitutional Constitutional: As Per HPI - EENT Eyes: As Per HPI Nose/Mouth/Throat: Dry Mouth - Cardiovascular Cardiovascular: As Per HPI - Respiratory Respiratory: As Per HPI - Gastrointestinal Gastrointestinal: Coffee Ground Emesis, Constipation - Genitourinary Genitourinary: Dysuria, Hematuria, Voiding Freq/Small Amts - Musculoskeletal Musculoskeletal: Back Pain, Myalgias - Integumentary Integumentary: As Per HPI - Neurological Neurological: As Per HPI - Psychiatric Psychiatric: As Per HPI - Hematologic/Lymphatic Hematologic: Easy Bleeding Past Patient History - Infectious Disease Hx of Infectious Diseases: None - Tetanus Immunizations Tetanus Immunization: Unknown - Past Medical History & Family History Past Medical History?: Yes - Past Social History Smoking Status: Former Smoker - CARDIAC Hx Hypertension: Yes - PULMONARY Hx Respiratory Disorders: No - NEUROLOGICAL Hx Neurological Disorder: No - HEENT Hx HEENT Problems: Yes Hx Cataracts: Yes (bilateral surgery) - RENAL Hx Chronic Kidney Disease: Yes (ureteral tumor, 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) - ENDOCRINE/METABOLIC Hx Diabetes Mellitus Type 1: Yes - HEMATOLOGICAL/ONCOLOGICAL Hx Blood Disorders: Yes Hx Shingles: Yes (6 years ago) - INTEGUMENTARY Hx Dermatological Problems: No - MUSCULOSKELETAL/RHEUMATOLOGICAL Hx Falls: No - GASTROINTESTINAL Hx Gastrointestinal Disorders: No (COLON POLYP) - GENITOURINARY/GYNECOLOGICAL Hx Genitourinary Disorders: No Hx Reproductive Disorders: Yes (PROSTATE CA) - PSYCHIATRIC Hx Psychophysiologic Disorder: No Hx Substance Use: No - SURGICAL HISTORY Other/Comment: right nephrostomy drainage tube 10/2015 - ANESTHESIA Hx Anesthesia Reactions: No Hx Malignant Hyperthermia: No Meds Allergies/Adverse Reactions: Allergies Allergy/AdvReac Type Severity Reaction Status Date / Time No Known Allergies Allergy Verified 12/23/16 21:18 Physical Exam - Head Exam Head Exam: ATRAUMATIC, NORMAL INSPECTION - Eye Exam Eye Exam: EOMI, PERRL - ENT Exam ENT Exam: Mucous Membranes Dry Additional comments: dark dry blood noted around lips and tongue - Neck Exam Neck exam: Positive for: Normal Inspection - Respiratory Exam Respiratory Exam: Clear to Auscultation Bilateral, NORMAL BREATHING PATTERN. absent: Wheezes, Stridor - Cardiovascular Exam Cardiovascular Exam: Tachycardia, REGULAR RHYTHM, +S1, +S2 - GI/Abdominal Exam GI & Abdominal Exam: Distended, Normal Bowel Sounds, Soft. absent: Tenderness - Extremities Exam Extremities exam: Positive for: normal capillary refill, pedal edema, pedal pulses present Additional comments: trace bilateral - Back Exam Back exam: CVA tenderness (L), CVA tenderness (R) - Neurological Exam Neurological exam: Alert, CN II-XII Intact, Oriented x3 - Psychiatric Exam Psychiatric exam: Normal Affect, Normal Mood - Skin Skin Exam: Dry, Intact, Normal Color, Warm Results - Vital Signs Recent Vital Signs: Last Vital Signs Temp 100.9 F H 03/16/17 19:41 Pulse 118 H 03/16/17 19:41 Resp 20 03/16/17 19:41 BP 125/67 03/16/17 19:41 Pulse Ox 95 03/16/17 19:41 - Labs Result Diagrams: 03/16/17 12:35 03/16/17 13:10 Labs: Laboratory Results - last 24 hr 03/16/17 03/16/17 03/16/17 16:07 16:50 17:10 POC Glucose (mg/dL) 155 H Blood Type B POSITIVE Blood Type Confirm B POSITIVE Antibody Screen Negative BBK History Checked No verified bt Assessment & Plan - Assessment and Plan (Free Text) Assessment: 81 year old male with PMH of urethral stent, hydronephrosis, recurrent UTI's, CKD, HTN, UTI, Prostate Ca, DM, and recent history of DVT who presented to the emergency department with back pain, chest pain and hematuria. Plan: 1. Urosepsis - Likely 2/2 obstruction vs. infection - CT scan notable for increased size of left pelvic obturator lymph node, new left-sided hydroureter and hydronephrosis, right-sided ureteral stent with new perinephric stranding around the right kidney - WBC count of 2.5 , UA showing large leuk est and positive for nitrate, Lactate of 1.7 - Pt report urethral stent placed 07/30/2016 - Urology consulted - IVF - Abx: Zosyn - Admit to ICU for close monitoring 2. Coagulopathy - INR of 3.47, on coumadin for history of DVT in 12/2016 - Reverse with Vitamin K, and FFP with plans for possible intervention tomorrow - H/H stable 3. Acute on Chronic Kidney disease - Likely 2/2 obstruction - Consult nephrology 4. DM - Reg ISS - NPO 5. GI ppx - protonix - Date & Time Date: 03/16/17 Time: 20:50 <Damion Costello - Last Filed: 03/17/17 16:44> Results - Vital Signs Recent Vital Signs: Last Vital Signs Temp 97.9 F 03/17/17 09:33 Pulse 115 H 03/17/17 10:31 Resp 27 H 03/17/17 09:33 BP 78/40 L 03/17/17 10:22 Pulse Ox 99 03/17/17 09:11 - Labs Result Diagrams: 03/17/17 15:05 03/17/17 15:05 Labs: Laboratory Results - last 24 hr 03/16/17 03/16/17 03/16/17 16:07 16:50 17:10 WBC RBC Hgb Hct MCV MCH MCHC RDW Plt Count MPV PT INR APTT pCO2 pO2 HCO3 ABG pH ABG Total CO2 ABG O2 Saturation ABG O2 Content ABG Base Excess ABG Hemoglobin ABG Carboxyhemoglobin POC ABG HHb (Measured) ABG Methemoglobin ABG O2 Capacity Hgb O2 Saturation FiO2 Sodium Potassium Chloride Carbon Dioxide Anion Gap BUN Creatinine Est GFR ( Amer) Est GFR (Non-Af Amer) POC Glucose (mg/dL) 155 H Random Glucose Lactic Acid Calcium Magnesium Total Bilirubin AST ALT Alkaline Phosphatase Total Protein Albumin Globulin Albumin/Globulin Ratio Prostate Specific Ag Blood Type B POSITIVE Blood Type Confirm B POSITIVE Antibody Screen Negative BBK History Checked No verified bt 03/17/17 03/17/17 03/17/17 08:59 08:59 08:59 WBC 27.7 H* D RBC 3.48 L Hgb 10.1 L Hct 29.9 L MCV 85.9 MCH 29.0 MCHC 33.8 RDW 13.0 Plt Count 117 L MPV 10.3 PT 32.4 H* INR 3.00 H APTT 48.3 H pCO2 pO2 HCO3 ABG pH ABG Total CO2 ABG O2 Saturation ABG O2 Content ABG Base Excess ABG Hemoglobin ABG Carboxyhemoglobin POC ABG HHb (Measured) ABG Methemoglobin ABG O2 Capacity Hgb O2 Saturation FiO2 Sodium 140 Potassium 3.6 Chloride 107 Carbon Dioxide 16 L Anion Gap 21 H BUN 67 H Creatinine 5.0 H Est GFR ( Amer) 14 Est GFR (Non-Af Amer) 11 POC Glucose (mg/dL) Random Glucose 86 Lactic Acid Calcium 7.7 L Magnesium 1.7 Total Bilirubin AST ALT Alkaline Phosphatase Total Protein Albumin Globulin Albumin/Globulin Ratio Prostate Specific Ag Blood Type Blood Type Confirm Antibody Screen BBK History Checked 03/17/17 03/17/17 03/17/17 09:21 10:20 12:10 WBC RBC Hgb Hct MCV MCH MCHC RDW Plt Count MPV PT INR APTT pCO2 25 L pO2 140.0 H HCO3 12.3 L ABG pH 7.30 L ABG Total CO2 13.1 L ABG O2 Saturation 97.7 ABG O2 Content 13.9 L ABG Base Excess -12.6 L ABG Hemoglobin 10.1 L ABG Carboxyhemoglobin 0.6 POC ABG HHb (Measured) 2.3 ABG Methemoglobin 0.9 ABG O2 Capacity 14.2 L Hgb O2 Saturation 96.2 FiO2 50.0 Sodium Potassium Chloride Carbon Dioxide Anion Gap BUN Creatinine Est GFR ( Amer) Est GFR (Non-Af Amer) POC Glucose (mg/dL) Random Glucose Lactic Acid 6.1 H* Calcium Magnesium Total Bilirubin AST ALT Alkaline Phosphatase Total Protein Albumin Globulin Albumin/Globulin Ratio Prostate Specific Ag 1.1 Blood Type Blood Type Confirm Antibody Screen BBK History Checked 03/17/17 03/17/17 03/17/17 13:45 15:05 15:05 WBC 37.2 H* D RBC 3.28 L Hgb 9.5 L Hct 30.2 L MCV 92.1 MCH 29.0 MCHC 31.5 RDW 13.4 Plt Count 75 L MPV 10.8 PT INR APTT pCO2 132 H* pO2 22.0 L* HCO3 21.0 ABG pH 6.81 L* ABG Total CO2 25.1 ABG O2 Saturation 25.2 L ABG O2 Content 3.2 L ABG Base Excess -13.9 L ABG Hemoglobin 8.9 L ABG Carboxyhemoglobin 0.5 POC ABG HHb (Measured) 74.4 H ABG Methemoglobin 0.0 ABG O2 Capacity 12.7 L Hgb O2 Saturation 25.1 L FiO2 100.0 Sodium 145 Potassium 4.7 Chloride 107 Carbon Dioxide 11 L Anion Gap 32 H BUN 64 H Creatinine 5.3 H Est GFR ( Amer) 13 Est GFR (Non-Af Amer) 10 POC Glucose (mg/dL) Random Glucose 97 Lactic Acid Calcium 7.5 L Magnesium Total Bilirubin 1.5 H AST 156 H ALT 119 H Alkaline Phosphatase 116 Total Protein 6.6 Albumin 3.3 Globulin 3.3 Albumin/Globulin Ratio 1.0 L Prostate Specific Ag Blood Type Blood Type Confirm Antibody Screen BBK History Checked 03/17/17 15:05 WBC RBC Hgb Hct MCV MCH MCHC RDW Plt Count MPV PT 30.9 H* INR 2.86 H APTT 61.9 H pCO2 pO2 HCO3 ABG pH ABG Total CO2 ABG O2 Saturation ABG O2 Content ABG Base Excess ABG Hemoglobin ABG Carboxyhemoglobin POC ABG HHb (Measured) ABG Methemoglobin ABG O2 Capacity Hgb O2 Saturation FiO2 Sodium Potassium Chloride Carbon Dioxide Anion Gap BUN Creatinine Est GFR ( Amer) Est GFR (Non-Af Amer) POC Glucose (mg/dL) Random Glucose Lactic Acid Calcium Magnesium Total Bilirubin AST ALT Alkaline Phosphatase Total Protein Albumin Globulin Albumin/Globulin Ratio Prostate Specific Ag Blood Type Blood Type Confirm Antibody Screen BBK History Checked Attending/Attestation - Attestation I have personally seen and examined this patient.: Yes I have fully participated in the care of the patient.: Yes I have reviewed all pertinent clinical information: Yes Notes (Text): 03/17/17 16:36 Attending note: Patient seen and examined with resident in ER. patient 's daughter by the bedside. Patient is a 81 year old male with pmh for prostate cancer, hormonal resistant cancer, diabetes, bladder mass s/p nephrostomy tube removal and right ureteral stent placement, history of DVT on COUMADIN is admitted with chills,bilateral back pain, shortness of breath and general weakness. found to have obstructive uropathy with Sepsis. Patient will be admitted to ICU. Patient has right ureteral stent and left hydronephros secondary to lymph node enlargement. Case discussed with urologist in detail. Coagulopathy with hematuria; patient is on Coumadin. Will give vitamin K and FFP. continue Montero catheter. Acute on chronic kidney disease. Worsening of renal failure secondary to obstructive uropathy. Sepsis; got 1 dose of vanco and Zosyn. Continue renal dose Zosyn. case discussed with Dr. Machado and Dr. Tevin Eaton in detail. Plan for Left nephrostomy tube today. patient's daughter informed about the procedure. Continue to monitor the patient closely in ICU. 03/17/17 16:43
[2017-03-17] MEDS ORDERED: Meropenem 500 MG in Sodium Chloride 0.9% 100 ML IVPB SCH (00:15)
[2017-03-17] MEDS: Sodium Chloride 0.9% 1,000 ML IV SCH (02:49)
[2017-03-17] MEDS: Morphine 2 mg/ml ISec IVP PRN ×2 (04:50→09:26)
[2017-03-17 05:36] VITALS: BMI 29.2
[2017-03-17] MEDS ORDERED: Albuterol-Ipratrop 3 mg / 0.5 (3 ml) UD IH STA (08:20)
[2017-03-17] MEDS: Insulin Reg-MEDIUM-Coverage SC SCH (09:03)
[2017-03-17 09:17] LABS: HEMOGLOBIN 10.1 gm/dL (14.0-18.0); MEAN CELL VOLUME 85.9 fL (80.0-105.0); MEAN CORPUSCULAR HGB CONC 33.8 g/dl (31.0-37.0); MEAN PLATELET VOLUME 10.3 fl (7.0-11.0); RBC 3.48 10^6/uL (3.5-6.1)
[2017-03-17 09:19] LABS: WHITE BLOOD COUNT 27.7 10^3/ul (4.5-11.0)
--- NOTE | 2017-03-17 09:19 | CP.PCM.CON ---
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 Active treatment of sepsis secondary to UTI/pyelonephritis complicated by left hydronephrosis. GI consultation for nausea, vomiting, and constipation. Patient denies nausea/vomiting but confirmed to have altered mental status, shortness of breath, vomitus episode, and SVT s/p adenosine 6mg on initial presentation. Patient's mentation has since improved and notes ongoing diffuse abdominal pain, left back pain, and distended abdomen. Notes he has not had a bowel movement since admission with nursing noting stool at rectal vault yesterday with cleaning. Endorsed usual daily bowel habit without straining. Denies nausea, vomiting, hematemesis, heartburn, diarrhea, melena, hematochezia, unintentional weight loss. Prior EGD/ colonoscopy ten years ago endorsed to be normal. Family- denies colon cancer Social- denies tobacco, alcohol, illicit drug use Surgery-right nephrostomy tube, right ureteral stent Review of Systems - Review of Systems Review of Systems: 12-point review of systems negative except for as above Past Patient History - Infectious Disease Hx of Infectious Diseases: None - Tetanus Immunizations Tetanus Immunization: Unknown - Past Medical History & Family History Past Medical History?: Yes - Past Social History Smoking Status: Former Smoker - CARDIAC Hx Hypertension: Yes - PULMONARY Hx Respiratory Disorders: No - NEUROLOGICAL Hx Neurological Disorder: No - HEENT Hx HEENT Problems: Yes Hx Cataracts: Yes (bilateral surgery) - RENAL Hx Chronic Kidney Disease: Yes (ureteral tumor, 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) - ENDOCRINE/METABOLIC Hx Diabetes Mellitus Type 1: Yes - HEMATOLOGICAL/ONCOLOGICAL Hx Blood Disorders: Yes Hx Shingles: Yes (6 years ago) - INTEGUMENTARY Hx Dermatological Problems: No - MUSCULOSKELETAL/RHEUMATOLOGICAL Hx Falls: No - GASTROINTESTINAL Hx Gastrointestinal Disorders: No (COLON POLYP) - GENITOURINARY/GYNECOLOGICAL Hx Genitourinary Disorders: No - PSYCHIATRIC Hx Psychophysiologic Disorder: No - SURGICAL HISTORY Other/Comment: right nephrostomy drainage tube 10/2015 - ANESTHESIA Hx Anesthesia Reactions: No Hx Malignant Hyperthermia: No Meds Allergies/Adverse Reactions: Allergies Allergy/AdvReac Type Severity Reaction Status Date / Time No Known Allergies Allergy Verified 12/23/16 21:18 - Medications Medications: Current Medications Sodium Chloride (Sodium Chloride 0.9%) 1,000 mls @ 100 mls/hr IV .Q10H [facility] Last Admin: 03/17/17 02:49 Dose: 100 mls/hr Meropenem 500 mg/ Sodium (Chloride) 100 mls @ 100 mls/hr IVPB Q12 MANNIE PRN Reason: Protocol Stop: 03/24/17 00:16 Last Admin: 03/17/17 01:00 Dose: 100 mls/hr Insulin Human Regular (Humulin R Med) 0 units SC ACHS MANNIE PRN Reason: Protocol Last Admin: 03/17/17 09:03 Dose: Not Given Losartan Potassium (Cozaar) 50 mg PO DAILY [facility] Morphine Sulfate (Morphine) 1 mg IVP Q3 PRN PRN Reason: Pain, moderate (4-7) Last Admin: 03/17/17 04:50 Dose: 1 mg Ondansetron HCl (Zofran Inj) 4 mg IVP Q4H PRN PRN Reason: Nausea/Vomiting Pantoprazole Sodium (Protonix Inj) 40 mg IVP DAILY [facility] Last Admin: 03/16/17 17:04 Dose: 40 mg Physical Exam - Constitutional Appears: No Acute Distress, Chronically Ill - Head Exam Head Exam: ATRAUMATIC, NORMOCEPHALIC - Eye Exam Eye Exam: EOMI, PERRL Pupil Exam: PERRL. absent: Miosis, Mydriatic - ENT Exam ENT Exam: Mucous Membranes Dry, Normal Oropharynx - Neck Exam Neck exam: Positive for: Full Rom, Normal Inspection - Respiratory Exam Respiratory Exam: Clear to Auscultation Bilateral. absent: Rales, Rhonchi, Wheezes - Cardiovascular Exam Cardiovascular Exam: RRR, +S1, +S2. absent: Gallop, Rubs - GI/Abdominal Exam GI & Abdominal Exam: Distended, Normal Bowel Sounds, Soft, Tenderness. absent: Firm, Guarding, Organomegaly, Rebound, Rigid Additional comments: diffuse discomfort to palpation - Extremities Exam Extremities exam: Positive for: normal inspection, pedal edema - Neurological Exam Neurological exam: Alert - Psychiatric Exam Psychiatric exam: Normal Affect, Normal Mood - Skin Skin Exam: Dry, Intact, Normal Color, Warm Results - Vital Signs Recent Vital Signs: Last Vital Signs Temp 98 F 03/17/17 09:11 Pulse 125 H 03/17/17 09:11 Resp 30 H 03/17/17 09:11 BP 119/62 03/17/17 09:11 Pulse Ox 99 03/17/17 09:11 - Labs Result Diagrams: 03/17/17 08:59 03/17/17 08:59 Labs: Laboratory Results - last 24 hr 03/16/17 03/16/17 03/16/17 16:07 16:50 17:10 POC Glucose (mg/dL) 155 H Blood Type B POSITIVE Blood Type Confirm B POSITIVE Antibody Screen Negative BBK History Checked No verified bt Assessment & Plan - Assessment and Plan (Free Text) Assessment: 81 year old male with history of Chronic kidney disease, Left leg DVT 12/2016 on Coumadin, Prostate Cancer s/p hormone therapy, 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 Active treatment of sepsis secondary to UTI/pyelonephritis complicated by left hydronephrosis. GI consultation for nausea, vomiting, and constipation. Prior EGD/colonoscopy ten years ago endorsed to be normal. Plan: >resolved nausea/vomiting >fecal retention noted on CT A/P >provide bowel regimen: Miralax daily >NPO for nephrostomy tube placement planned today >advanced diet as tolerated from GI standpoint >supportive care: PPI, pain control, antiemetics >thank you for opportunity to participate in the care of this patient <Colin Oneill - Last Filed: 03/17/17 09:53> Meds - Medications Medications: Current Medications Sodium Chloride (Sodium Chloride 0.9%) 1,000 mls @ 100 mls/hr IV .Q10H [facility] Last Admin: 03/17/17 02:49 Dose: 100 mls/hr Meropenem 500 mg/ Sodium (Chloride) 100 mls @ 100 mls/hr IVPB Q12 [facility]ANNIE PRN Reason: Protocol Stop: 03/24/17 00:16 Last Admin: 03/17/17 01:00 Dose: 100 mls/hr Insulin Human Regular (Humulin R Med) 0 units SC ACHS [facility]ANN[facility] PRN Reason: Protocol Last Admin: 03/17/17 09:03 Dose: Not Given Losartan Potassium (Cozaar) 50 mg PO DAILY [facility] Morphine Sulfate (Morphine) 1 mg IVP Q3 PRN PRN Reason: Pain, moderate (4-7) Last Admin: 03/17/17 09:26 Dose: 1 mg Ondansetron HCl (Zofran Inj) 4 mg IVP Q4H PRN PRN Reason: Nausea/Vomiting Pantoprazole Sodium (Protonix Inj) 40 mg IVP DAILY [facility] Last Admin: 03/16/17 17:04 Dose: 40 mg Results - Vital Signs Recent Vital Signs: Last Vital Signs Temp 97.9 F 03/17/17 09:33 Pulse 126 H 03/17/17 09:33 Resp 27 H 03/17/17 09:33 BP 107/72 03/17/17 09:33 Pulse Ox 99 03/17/17 09:11 - Labs Result Diagrams: 03/17/17 08:59 03/17/17 08:59 Labs: Laboratory Results - last 24 hr 03/16/17 03/16/17 03/16/17 16:07 16:50 17:10 WBC RBC Hgb Hct MCV MCH MCHC RDW Plt Count MPV PT INR APTT pCO2 pO2 HCO3 ABG pH ABG Total CO2 ABG O2 Saturation ABG O2 Content ABG Base Excess ABG Hemoglobin ABG Carboxyhemoglobin POC ABG HHb (Measured) ABG Methemoglobin ABG O2 Capacity Hgb O2 Saturation FiO2 Sodium Potassium Chloride Carbon Dioxide Anion Gap BUN Creatinine Est GFR ( Amer) Est GFR (Non-Af Amer) POC Glucose (mg/dL) 155 H Random Glucose Calcium Magnesium Blood Type B POSITIVE Blood Type Confirm B POSITIVE Antibody Screen Negative BBK History Checked No verified bt 03/17/17 03/17/17 03/17/17 08:59 08:59 08:59 WBC 27.7 H* D RBC 3.48 L Hgb 10.1 L Hct 29.9 L MCV 85.9 MCH 29.0 MCHC 33.8 RDW 13.0 Plt Count 117 L MPV 10.3 PT 32.4 H* INR 3.00 H APTT 48.3 H pCO2 pO2 HCO3 ABG pH ABG Total CO2 ABG O2 Saturation ABG O2 Content ABG Base Excess ABG Hemoglobin ABG Carboxyhemoglobin POC ABG HHb (Measured) ABG Methemoglobin ABG O2 Capacity Hgb O2 Saturation FiO2 Sodium 140 Potassium 3.6 Chloride 107 Carbon Dioxide 16 L Anion Gap 21 H BUN 67 H Creatinine 5.0 H Est GFR ( Amer) 14 Est GFR (Non-Af Amer) 11 POC Glucose (mg/dL) Random Glucose 86 Calcium 7.7 L Magnesium 1.7 Blood Type Blood Type Confirm Antibody Screen BBK History Checked 03/17/17 09:21 WBC RBC Hgb Hct MCV MCH MCHC RDW Plt Count MPV PT INR APTT pCO2 25 L pO2 140.0 H HCO3 12.3 L ABG pH 7.30 L ABG Total CO2 13.1 L ABG O2 Saturation 97.7 ABG O2 Content 13.9 L ABG Base Excess -12.6 L ABG Hemoglobin 10.1 L ABG Carboxyhemoglobin 0.6 POC ABG HHb (Measured) 2.3 ABG Methemoglobin 0.9 ABG O2 Capacity 14.2 L Hgb O2 Saturation 96.2 FiO2 50.0 Sodium Potassium Chloride Carbon Dioxide Anion Gap BUN Creatinine Est GFR ( Amer) Est GFR (Non-Af Amer) POC Glucose (mg/dL) Random Glucose Calcium Magnesium Blood Type Blood Type Confirm Antibody Screen BBK History Checked Attending/Attestation - Attestation I have personally seen and examined this patient.: Yes I have fully participated in the care of the patient.: Yes I have reviewed all pertinent clinical information: Yes Notes (Text): 03/17/17 09:45 I have seen and examined patient with GI fellow. Agree with above documentation with the following additions. In brief, this is an 81 year old male with history of DVT on coumadin, prostate cancer, obstructive uropathy who initially presented to hospital with complaint of generalized abdominal and back pain for the past 2 days. He is currently being treated for sepsis secondary to pyelonephritis with hydronephrosis. GI called for evaluation of constipation and episode of vomiting while patient was at home. He is currently seen in critical care unit being treated with BIPAP therapy for respiratory distress. He is able to verbalize and nods his head appropriately to questions. No reported vomiting since arrival to hospital. He typically reports normal formed daily bowel movements, though has not had any bowel movement over the past 2 days when his pain started. He denies fever/chills, weight loss, rectal bleeding, or change in bowel habits. He had an EGD/ colonoscopy 10 years ago which were normal as per patient. DVT on coumadin History of prostate cancer Obstructive uropathy - acute pyelonephritis, hydronephrosis Constipation CT imaging reviewed by me showing fecal retention, otherwise no acute GI pathology - Patient currently NPO for planned nephrostomy tube placement today by interventional radiology - Would advance diet slowly as tolerated afterwards - Bowel regimen to prevent ongoing constipation - Continue with antibiotic therapy as per ID, follow up urine culture results - Anti-emetic therapy PRN - No further planned inpatient GI interventions, will sign off case. Suggest subsequent outpatient GI follow up after acute urologic issues have resolved. Please reconsult as necessary, thank you.
[2017-03-17 09:21] LABS: PARTIAL THROMBOPLASTIN TIME 48.3 Seconds (23.7-30.8); PROTHROMBIN TIME 32.4 Seconds (9.9-11.8)
[2017-03-17 09:22] LABS: CALCIUM 7.7 mg/dL (8.4-10.5); MAGNESIUM 1.7 mg/dL (1.7-2.2)
[2017-03-17] MEDS ORDERED: Propofol 10 mg/ml 1,000 MG/100 ML VIAL ONE (09:23)
[2017-03-17 09:24] LABS: ARTERIAL BLOOD GAS HCO3 12.3 mmol/L (21-28); ARTERIAL BLOOD GAS HEMOGLOBIN 10.1 g/dL (11.7-17.4); ARTERIAL BLOOD GAS O2 CAPACITY 14.2 mL/dl (16-24); ARTERIAL BLOOD GAS O2 CONTENT 13.9 ML/dl (15-23); ARTERIAL BLOOD GAS O2 SAT 97.7 % (95-98); ARTERIAL BLOOD GAS PCO2 25 mm/Hg (35-45); ARTERIAL BLOOD GAS TCO2 13.1 mmol.L (22-28)
[2017-03-17 09:34] VITALS: RESP 27
[2017-03-17] MEDS ORDERED: Sodium Chloride 0.9% 1,000 ML IV STA (10:11)
--- NOTE | 2017-03-17 10:40 | CON ---
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 He had a nephrostomy tube in which was then used to place an antegrade pigtail stent. He now presents with sepsis. CAT scan showed massive left hydro due to recurrent cancer in the pelvic nodes causing the hydro. His white count is 2800. His COPD has exacerbated and urologic consultation was asked for. I reviewed the films. I spoke to Dr. Tevin Eaton. He will place a left pigtail stent later in the day to relieve the drainage on the left side. PAST MEDICAL HISTORY: Significant for history of DVT. SOCIAL HISTORY: He no longer smokes. FAMILY HISTORY: Noncontributory. He does have a history of hypertension. ALLERGIES: HE HAS NO KNOWN ALLERGIES. PHYSICAL EXAMINATION GENERAL: Shows him to be in mild distress. VITAL SIGNS: He has a pulse of 133, respirations 30. NECK: No CVA pain, looks edematous, no purpura. ABDOMEN: No hepatosplenomegaly, rebound or guarding. GENITALIA: Unremarkable. LABORATORY DATA: Show creatinine of 3.6 with a BUN of 58. His INR is 3.4. He is getting FFP to bring it down so a percutaneous nephrostomy can be done. The white count is 2500 with hemoglobin of 12.4. ID has seen him, he is on meropenem and vancomycin, was given 1 dose of vancomycin. IMPRESSION: 1. Recurrent prostate cancer. 2. New left hydro, percutaneous nephrostomy will be placed and we will see if this helps the situation. I am also ordering the PSA. Jorge Machado MD
[2017-03-17] MEDS ORDERED: Albuterol-Ipratrop 3 mg / 0.5 (3 ml) UD ONE (11:04)
--- NOTE | 2017-03-17 11:05 | CP.PCM.CON ---
History of Present Illness - History of Present Illness History of Present Illness: 81 year old male with PMH of prostate cancer associated with pelvic mass, S/P nephrostomy tube placement for hydronephrosis and removal S/P right ureteral stent placement, DM, HTN, history of shingles, S/P bilateral cataract surgery was brought in to [facility] because of generalized weakness and shortness of breath at rest. He had subjective fevers and chills as well as well as dysuria for the past 2 days. He denies headache or dizziness, no sore throat, no cough or colds, no abdominal pain, no diarrhea. In the ED, CT abdomen and pelvis showed right perinephric stranding and new left hydronephrosis. Infectious diseases consult is requested to further evaluate and manage. Review of Systems - Review of Systems All systems: reviewed and no additional remarkable complaints except (as per HPI ) Past Patient History - Infectious Disease Hx of Infectious Diseases: None - Tetanus Immunizations Tetanus Immunization: Unknown - Past Medical History & Family History Past Medical History?: Yes - Past Social History Smoking Status: Former Smoker - CARDIAC Hx Hypertension: Yes - PULMONARY Hx Respiratory Disorders: No - NEUROLOGICAL Hx Neurological Disorder: No - HEENT Hx HEENT Problems: Yes Hx Cataracts: Yes (bilateral surgery) - RENAL Hx Chronic Kidney Disease: Yes (ureteral tumor, 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) - ENDOCRINE/METABOLIC Hx Diabetes Mellitus Type 1: Yes - HEMATOLOGICAL/ONCOLOGICAL Hx Blood Disorders: Yes Hx Shingles: Yes (6 years ago) - INTEGUMENTARY Hx Dermatological Problems: No - MUSCULOSKELETAL/RHEUMATOLOGICAL Hx Falls: No - GASTROINTESTINAL Hx Gastrointestinal Disorders: No (COLON POLYP) - GENITOURINARY/GYNECOLOGICAL Hx Genitourinary Disorders: No - PSYCHIATRIC Hx Psychophysiologic Disorder: No - SURGICAL HISTORY Other/Comment: right nephrostomy drainage tube 10/2015 - ANESTHESIA Hx Anesthesia Reactions: No Hx Malignant Hyperthermia: No Meds Allergies/Adverse Reactions: Allergies Allergy/AdvReac Type Severity Reaction Status Date / Time No Known Allergies Allergy Verified 12/23/16 21:18 - Medications Medications: Current Medications Sodium Chloride (Sodium Chloride 0.9%) 1,000 mls @ 100 mls/hr IV .Q10H MANNIE Last Admin: 03/16/17 19:45 Dose: 100 mls/hr Meropenem 500 mg/ Sodium (Chloride) 100 mls @ 100 mls/hr IVPB Q12 MANNIE PRN Reason: Protocol Stop: 03/24/17 00:16 Insulin Human Regular (Humulin R Med) 0 units SC ACHS MANNIE PRN Reason: Protocol Last Admin: 03/16/17 22:08 Dose: Not Given Morphine Sulfate (Morphine) 1 mg IVP Q3 PRN PRN Reason: Pain, moderate (4-7) Last Admin: 03/16/17 17:05 Dose: 1 mg Ondansetron HCl (Zofran Inj) 4 mg IVP Q4H PRN PRN Reason: Nausea/Vomiting Pantoprazole Sodium (Protonix Inj) 40 mg IVP DAILY [facility] Last Admin: 03/16/17 17:04 Dose: 40 mg Physical Exam - Constitutional Appears: Non-toxic, No Acute Distress - Head Exam Head Exam: NORMAL INSPECTION - ENT Exam ENT Exam: Mucous Membranes Moist - Neck Exam Neck exam: Negative for: Lymphadenopathy, Meningismus - Respiratory Exam Respiratory Exam: Decreased Breath Sounds - Cardiovascular Exam Cardiovascular Exam: +S1, +S2 - GI/Abdominal Exam GI & Abdominal Exam: Soft. absent: Tenderness Results - Vital Signs Recent Vital Signs: Last Vital Signs Temp 99.2 F 03/16/17 20:45 Pulse 120 H 03/16/17 21:41 Resp 25 H 03/16/17 21:40 BP 120/58 L 03/16/17 21:16 Pulse Ox 93 L 03/16/17 21:40 - Labs Result Diagrams: 03/17/17 08:59 03/17/17 08:59 Labs: Laboratory Results - last 24 hr 03/16/17 03/16/17 03/16/17 16:07 16:50 17:10 POC Glucose (mg/dL) 155 H Blood Type B POSITIVE Blood Type Confirm B POSITIVE Antibody Screen Negative BBK History Checked No verified bt Assessment & Plan - Assessment and Plan (Free Text) Plan: Assessment Systemic Inflammatory Response Syndrome, consider sepsis due to UTI in this patient with prostate cancer with right and left sided hydronephrosis S/P right ureteral stent placement previously prostate cancer associated with pelvic mass, S/P nephrostomy tube placement for hydronephrosis and removal S/P right ureteral stent placement DM HTN history of shingles S/P bilateral cataract surgery Plan Started patient on Merrem and has been given a dose of IV Vancomycin pending blood and urine cx; reviewed CT abdomen and pelvis showing new left hydronephrosis and some perinephric stranding on the right Discussed with Dr. Machado - will ask Dr. Tevin Eaton regarding the right ureteral stent will monitor clinically
[2017-03-17] MEDS ORDERED: Sodium Chloride 0.9% 1,000 ML IV SCH (12:45)
--- NOTE | 2017-03-17 13:04 | CARD ---
APPROVED REPORT EKG Measurement Heart [id number] VA 154P [id number] <Conclusion> Arm lead reversal Sinus tachycardia Right bundle branch block T wave abnormality, consider inferior ischemia Abnormal ECG
--- NOTE | 2017-03-17 13:50 | CP.PCM.PN ---
Subjective - Date & Time of Evaluation Date of Evaluation: 03/17/17 Time of Evaluation: 13:50 - Subjective Subjective: Patient seen and examined in ICU this AM. Patient appears to be more aware today then on presentation. He complains of shortness of breath, back and abdominal pain. Heart rate elevated and BP continues to flucutate. He denies chest pain, cough, nausea, vomiting and fever. Objective - Vital Signs/Intake and Output Vital Signs (last 24 hours): Temp Pulse Resp BP Pulse Ox 97.9 F 115 H 27 H 78/40 L 99 03/17/17 09:33 03/17/17 10:31 03/17/17 09:33 03/17/17 10:22 03/17/17 09:11 Intake and Output: 03/17/17 03/17/17 06:59 18:59 Intake Total 1100 Output Total 300 Balance 800 - Medications Medications: Current Medications Meropenem 500 mg/ Sodium (Chloride) 100 mls @ 100 mls/hr IVPB Q12 MANNIE PRN Reason: Protocol Stop: 03/24/17 00:16 Last Admin: 03/17/17 01:00 Dose: 100 mls/hr Sodium Chloride (Sodium Chloride 0.9%) 1,000 mls @ 75 mls/hr IV .[id number] [facility] Insulin Human Regular (Humulin R Med) 0 units SC ACHS MANNIE PRN Reason: Protocol Last Admin: 03/17/17 09:03 Dose: Not Given Losartan Potassium (Cozaar) 50 mg PO DAILY [facility] Last Admin: 03/17/17 10:22 Dose: Not Given Morphine Sulfate (Morphine) 1 mg IVP Q3 PRN PRN Reason: Pain, moderate (4-7) Last Admin: 03/17/17 09:26 Dose: 1 mg Ondansetron HCl (Zofran Inj) 4 mg IVP Q4H PRN PRN Reason: Nausea/Vomiting Pantoprazole Sodium (Protonix Inj) 40 mg IVP DAILY [facility] Last Admin: 03/17/17 10:24 Dose: 40 mg - Labs Labs: 03/17/17 08:59 03/17/17 08:59 PT 32.4 Seconds (9.9-11.8) H* 03/17/17 08:59 INR 3.00 (0.93-1.08) H 03/17/17 08:59 APTT 48.3 Seconds (23.7-30.8) H 03/17/17 08:59 - Head Exam Head Exam: ATRAUMATIC, NORMAL INSPECTION - Eye Exam Eye Exam: EOMI, PERRL - ENT Exam ENT Exam: Mucous Membranes Moist - Neck Exam Neck Exam: Full ROM - Respiratory Exam Respiratory Exam: Decreased Breath Sounds, Clear to Ausculation Bilateral Additional comments: tachypneia - Cardiovascular Exam Cardiovascular Exam: Tachycardia, REGULAR RHYTHM, +S1, +S2 - GI/Abdominal Exam GI & Abdominal Exam: Distended, Soft, Tenderness, Normal Bowel Sounds - Exam Additional comments: urinary catheter in place - Extremities Exam Extremities Exam: Full ROM, Normal Capillary Refill, Pedal Edema (trace). absent: Calf Tenderness - Back Exam Back Exam: tenderness (R>L ) - Neurological Exam Neurological Exam: Alert, Awake, CN II-XII Intact, Oriented x3 Neuro motor strength exam: Left Upper Extremity: 5, Right Upper Extremity: 5, Left Lower Extremity: 5, Right Lower Extremity: 5 - Psychiatric Exam Psychiatric exam: Normal Affect, Normal Mood - Skin Skin Exam: Dry, Normal Color Assessment and Plan - Assessment and Plan (Free Text) Assessment: 81 year old patient with past medical history of urethral stent, hydronephrosis , recurrent UTIs castrate-resistant Prostate cancer, DM and recent history of DVT who has presented with sepsis 2/2 UTI due to obstruction with new hydronephrosis Plan: 1. Sepsis 2/2 uriary source - Likely 2/2 obstruction vs. infection - Urology consulted, plan to check PSA - ID consulted, plan to start patient on Merrem - GI consulted, plan for advancement of diet slowly as tolerated, bowel regiment in place for constipation, anti-emetic therapy prn, will be signing off at this time - Urine Clx with GNR - Blood Clx with GNR - Right Nephrostomy tube planned for placement today 2. Coagulopathy - INR now 3.00, was on coumadin for history of DVT in 12/2016 - 1 unit FFP - H/H stable 3. Acute on Chronic Kidney disease - Likely 2/2 obstruction - Consult nephrology 4. DM - Reg ISS - NPO 5. GI ppx - protonix dispo: Patient prognosis is gaurded at this time
[2017-03-17] MEDS ORDERED: Lidocaine 2% Inj (20ml) ONE (13:55)
[2017-03-17] MEDS ORDERED: Midazolam 2 MG/2 ML VIAL ONE (13:55)
[2017-03-17] MEDS ORDERED: Iodixanol 320 MG/ML 100 ML BOTTLE IV ONE (13:56)
[2017-03-17 15:13] LABS: ARTERIAL BLOOD GAS HEMOGLOBIN 8.9 g/dL (11.7-17.4); ARTERIAL BLOOD GAS O2 CAPACITY 12.7 mL/dl (16-24); ARTERIAL BLOOD GAS O2 CONTENT 3.2 ML/dl (15-23); ARTERIAL BLOOD GAS O2 SAT 25.2 % (95-98); ARTERIAL BLOOD GAS TCO2 25.1 mmol.L (22-28)
[2017-03-17 15:13] LABS: HEMOGLOBIN 9.5 g/dL (14.0-18.0); MEAN CELL VOLUME 92.1 fl (80.0-105.0); MEAN CORPUSCULAR HGB CONC 31.5 g/dl (31.0-37.0); MEAN PLATELET VOLUME 10.8 fl (7.0-11.0); RBC 3.28 10^6/uL (3.5-6.1); RED CELL DISTRIBUTION WIDTH 13.4 % (11.5-14.5)
[2017-03-17 15:17] LABS: ARTERIAL BLOOD GAS PCO2 132 mm/Hg (35-45); ARTERIAL BLOOD GAS PH 6.81 (7.35-7.45)
[2017-03-17 15:25] LABS: ALBUMIN 3.3 g/dL (3.0-4.8); CALCIUM 7.5 mg/dL (8.4-10.5)
[2017-03-17 15:26] LABS: INR 2.86 (0.93-1.08); PARTIAL THROMBOPLASTIN TIME 61.9 Seconds (23.7-30.8); PROTHROMBIN TIME 30.9 Seconds (9.9-11.8)
[2017-03-17 15:27] LABS: WHITE BLOOD COUNT 37.2 10^3/ul (4.5-11.0)
--- NOTE | 2017-03-17 15:30 | CP.PCM.PN ---
<PatiBlayne - Last Filed: 03/17/17 15:26> Subjective - Date & Time of Evaluation Date of Evaluation: 03/17/17 Time of Evaluation: 02:40 - Subjective Subjective: PGY-1, PGY-2, and Attending responded STAT to Code blue. Pt was pulseless when we arrived, compressions were started right away. Pulses were checked q2 minutes. Patient was not intubated. Compressions + q2 pulse checks continued for 30 minutes. After 30 minutes of no pulse, the patient was pronounced. 9 units of epinephrine, 2 units of bicarb, and 1 unit of calcium were given. Objective - Vital Signs/Intake and Output Vital Signs (last 24 hours): Temp Pulse Resp BP Pulse Ox 97.9 F 115 H 27 H 78/40 L 99 03/17/17 09:33 03/17/17 10:31 03/17/17 09:33 03/17/17 10:22 03/17/17 09:11 Intake and Output: 03/17/17 03/17/17 06:59 18:59 Intake Total 1100 Output Total 300 Balance 800 - Medications Medications: Current Medications Meropenem 500 mg/ Sodium (Chloride) 100 mls @ 100 mls/hr IVPB Q12 MANNIE PRN Reason: Protocol Stop: 03/24/17 00:16 Last Admin: 03/17/17 01:00 Dose: 100 mls/hr Sodium Chloride (Sodium Chloride 0.9%) 1,000 mls @ 75 mls/hr IV .[id number] [facility] Insulin Human Regular (Humulin R Med) 0 units SC ACHS MANNIE PRN Reason: Protocol Last Admin: 03/17/17 09:03 Dose: Not Given Losartan Potassium (Cozaar) 50 mg PO DAILY [facility] Last Admin: 03/17/17 10:22 Dose: Not Given Morphine Sulfate (Morphine) 1 mg IVP Q3 PRN PRN Reason: Pain, moderate (4-7) Last Admin: 03/17/17 09:26 Dose: 1 mg Ondansetron HCl (Zofran Inj) 4 mg IVP Q4H PRN PRN Reason: Nausea/Vomiting Pantoprazole Sodium (Protonix Inj) 40 mg IVP DAILY [facility] Last Admin: 03/17/17 10:24 Dose: 40 mg - Labs Labs: 03/17/17 08:59 03/17/17 08:59 PT 32.4 Seconds (9.9-11.8) H* 03/17/17 08:59 INR 3.00 (0.93-1.08) H 03/17/17 08:59 APTT 48.3 Seconds (23.7-30.8) H 03/17/17 08:59 <Jania Turner - Last Filed: 03/17/17 17:26> Objective - Vital Signs/Intake and Output Vital Signs (last 24 hours): Temp Pulse Resp BP Pulse Ox 97.9 F 115 H 27 H 78/40 L 99 03/17/17 09:33 03/17/17 10:31 03/17/17 09:33 03/17/17 10:22 03/17/17 09:11 Intake and Output: 03/17/17 03/17/17 06:59 18:59 Intake Total 1100 Output Total 300 Balance 800 - Medications Medications: Current Medications Meropenem 500 mg/ Sodium (Chloride) 100 mls @ 100 mls/hr IVPB Q12 MANNIE PRN Reason: Protocol Stop: 03/24/17 00:16 Last Admin: 03/17/17 01:00 Dose: 100 mls/hr Sodium Chloride (Sodium Chloride 0.9%) 1,000 mls @ 75 mls/hr IV .[id number] [facility] Insulin Human Regular (Humulin R Med) 0 units SC ACHS MANNIE PRN Reason: Protocol Last Admin: 03/17/17 09:03 Dose: Not Given Losartan Potassium (Cozaar) 50 mg PO DAILY [facility] Last Admin: 03/17/17 10:22 Dose: Not Given Morphine Sulfate (Morphine) 1 mg IVP Q3 PRN PRN Reason: Pain, moderate (4-7) Last Admin: 03/17/17 09:26 Dose: 1 mg Ondansetron HCl (Zofran Inj) 4 mg IVP Q4H PRN PRN Reason: Nausea/Vomiting Pantoprazole Sodium (Protonix Inj) 40 mg IVP DAILY [facility] Last Admin: 03/17/17 10:24 Dose: 40 mg - Labs Labs: 03/17/17 15:05 03/17/17 15:05 PT 30.9 Seconds (9.9-11.8) H* 03/17/17 15:05 INR 2.86 (0.93-1.08) H 03/17/17 15:05 APTT 61.9 Seconds (23.7-30.8) H 03/17/17 15:05 Attending/Attestation - Attestation I have personally seen and examined this patient.: Yes I have fully participated in the care of the patient.: Yes I have reviewed all pertinent clinical information, including history, physical exam and plan: Yes Notes (Text): 03/17/17 16:46 Some changes /additions to the resident's note: Veronica kelly was called at 2:40 P M today when pt was noted to become pulseless, unresponsive and apneic,and his moniter showed asystole. ACLS protocol started immediately.(Please see code sheet). Dr Bruce (Technical Sales Engineer) tried to intubate pt,but it was not possible.He was bagged with 100% O2 at the rate of 1 breath every 6 seconds. Patient did not respond to our resuscitative efforts,so the code was terminated. O/E,Pt remains unresponsive to deep painful stimuli. VS not recordable. Pupils are equal and fixed but not dilated. Breath sounds not heard on auscultation. Heart sounds not heard on auscultation. Cardiac moniter showed asystole. Patient was pronounced at 3:29 PM. His daughter was notified of his expiration. Total critical care time spent on this patient was 60 mins. 03/17/17 17:26
--- NOTE | 2017-03-17 15:45 | CP.PCM.PRO ---
Pronouncement of Note - Clinical Findings Physical Exam: No Response Verbal/Painful Stimuli, Absent Peripheral Pulses{ Carotid & Femoral}, Absent Heart & Breath Sounds, No Pupillary Light Reflex, No Corneal Reflex, Pupils Fixed & Dilated (Pupils are not dilated), Absence of Vital Signs - Pronouncement Time Time of Pronouncement of : 15:29 - Notifications Pronouncement Notifications: Family Notified (Pt's daughter notified), Atending Notified Iron Caster Notified: Yes - Autopsy Autopsy Requested: No - [place]: [id number] Additional Comments: Pt was coded for 49 minutes from 14:40 to 15:29. Resuscitation efforts stopped at 3:29 PM because he did not respond. Total time spent : 60 mins(including speaking to pt's daughter)
--- NOTE | 2017-03-17 17:10 | US ---
HISTORY: Leg pain and swelling. Evaluate for DVT PHYSICIAN(S): Tevin Eaton MD. TECHNIQUE: Duplex sonography and color-flow Doppler with graded compression were used to evaluate the deep venous systems of both lower extremities. The exam is somewhat limited by edema. FINDINGS: The visualized deep venous systems of both lower extremities are sonographically normal and compressible. Normal wave forms and augmentation are seen. There is no sonographic evidence for deep venous thrombosis in the visualized segments of both lower extremities. IMPRESSION: No sonographic evidence for deep venous thrombosis in the visualized segments of both lower extremities.
[2017-03-17 17:16] VITALS: BP 91/50; PULSE 121; TEMP 98.2; O2SAT 93
--- NOTE | 2017-03-17 17:32 | CP.PCM.DIS ---
<Bryan Dunham - Last Filed: 03/17/17 17:29> Provider - Provider Date of Admission: 03/16/17 15:38 Attending physician: Damion Costello MD Primary care physician: Mike Wilkerson MD Consults: Gastroenterology: Dr. Delmer Oneill Urology: Dr. Jorge Machado ID: Dr. Lamont Dalton Interventional Radiology: Dr. Tevin Eaton Time Spent in preparation of Discharge (in minutes): 30 Hospital Course - Lab Results Lab Results: Most Recent Lab Values WBC 37.2 10^3/ul (4.5-11.0) H* D 03/17/17 15:05 RBC 3.28 10^6/uL (3.5-6.1) L 03/17/17 15:05 Hgb 9.5 g/dL (14.0-18.0) L 03/17/17 15:05 Hct 30.2 % (42.0-52.0) L 03/17/17 15:05 MCV 92.1 fl (80.0-105.0) 03/17/17 15:05 MCH 29.0 pg (25.0-35.0) 03/17/17 15:05 MCHC 31.5 g/dl (31.0-37.0) 03/17/17 15:05 RDW 13.4 % (11.5-14.5) 03/17/17 15:05 Plt Count 75 10^3/uL (120.0-450.0) L 03/17/17 15:05 MPV 10.8 fl (7.0-11.0) 03/17/17 15:05 Neutrophils % (Manual) 69 % (50.0-70.0) 03/16/17 12:35 Band Neutrophils % 2 % (0-2) 03/16/17 12:35 Lymphocytes % (Manual) 20 % (22.0-35.0) L 03/16/17 12:35 Monocytes % (Manual) 5 % (1.0-6.0) 03/16/17 12:35 Eosinophils % (Manual) 4 % (0.0-3.0) H 03/16/17 12:35 PT 30.9 Seconds (9.9-11.8) H* 03/17/17 15:05 INR 2.86 (0.93-1.08) H 03/17/17 15:05 APTT 61.9 Seconds (23.7-30.8) H 03/17/17 15:05 pCO2 132 mm/Hg (35-45) H* 03/17/17 13:45 pO2 22.0 mm/Hg (80-100) L* 03/17/17 13:45 HCO3 21.0 mmol/L (21-28) 03/17/17 13:45 ABG pH 6.81 (7.35-7.45) L* 03/17/17 13:45 ABG Total CO2 25.1 mmol.L (22-28) 03/17/17 13:45 ABG O2 Saturation 25.2 % (95-98) L 03/17/17 13:45 ABG O2 Content 3.2 ML/dl (15-23) L 03/17/17 13:45 ABG Base Excess -13.9 mmol/L (-2.0-3.0) L 03/17/17 13:45 ABG Hemoglobin 8.9 g/dL (11.7-17.4) L 03/17/17 13:45 ABG Carboxyhemoglobin 0.5 % (0.5-1.5) 03/17/17 13:45 POC ABG HHb (Measured) 74.4 % (0-5) H 03/17/17 13:45 ABG Methemoglobin 0.0 % (0.0-3.0) 03/17/17 13:45 ABG O2 Capacity 12.7 mL/dl (16-24) L 03/17/17 13:45 ABG Potassium 2.6 mmol/L (3.6-5.2) L 03/16/17 13:10 Hgb O2 Saturation 25.1 % (95.0-98.0) L 03/17/17 13:45 Sodium 139.0 mmol/L (132-148) 03/16/17 13:10 Chloride 117.0 mmol/L (98-107) H 03/16/17 13:10 Glucose 199 mg/dl (75-110) H 03/16/17 13:10 Lactate 1.7 mmol/L (0.7-2.1) 03/16/17 13:10 FiO2 100.0 % 03/17/17 13:45 Sodium 145 mmol/L (132-148) 03/17/17 15:05 Potassium 4.7 mmol/L (3.6-5.0) 03/17/17 15:05 Chloride 107 mmol/L (98-107) 03/17/17 15:05 Carbon Dioxide 11 mmol/L (21-33) L 03/17/17 15:05 Anion Gap 32 (10-20) H 03/17/17 15:05 BUN 64 mg/dL (7-21) H 03/17/17 15:05 Creatinine 5.3 mg/dL (0.5-1.4) H 03/17/17 15:05 Est GFR ( Amer) 13 03/17/17 15:05 Est GFR (Non-Af Amer) 10 03/17/17 15:05 POC Glucose (mg/dL) 155 mg/dL (65-110) H 03/16/17 17:10 Random Glucose 97 mg/dL (70-110) 03/17/17 15:05 Lactic Acid 6.1 mmol/L (0.7-2.1) H* 03/17/17 12:10 Calcium 7.5 mg/dL (8.4-10.5) L 03/17/17 15:05 Magnesium 1.7 mg/dL (1.7-2.2) 03/17/17 08:59 Total Bilirubin 1.5 mg/dL (0.2-1.3) H 03/17/17 15:05 AST 156 U/L (15-59) H 03/17/17 15:05 ALT 119 U/L (7-56) H 03/17/17 15:05 Alkaline Phosphatase 116 U/L (38-133) 03/17/17 15:05 Lactate Dehydrogenase 697 U/L (333-699) 03/16/17 13:10 Total Creatine Kinase 63 U/L (35-230) 03/16/17 13:10 Troponin I < 0.01 ng/mL 03/16/17 13:10 NT-Pro-B Natriuret Pep 1070 pg/mL (0-450) H 03/16/17 13:10 Total Protein 6.6 g/dL (5.8-8.3) 03/17/17 15:05 Albumin 3.3 g/dL (3.0-4.8) 03/17/17 15:05 Globulin 3.3 gm/dL 03/17/17 15:05 Albumin/Globulin Ratio 1.0 (1.1-1.8) L 03/17/17 15:05 Lipase 475 U/L (23-300) H 03/16/17 13:10 Prostate Specific Ag 1.1 ng/mL (0.00-2.5) 03/17/17 10:20 Arterial Blood Potassium 2.6 mmol/L (3.6-5.2) L 03/16/17 13:10 Urine Color Red (YELLOW) 03/16/17 14:30 Urine Appearance Cloudy (CLEAR) 03/16/17 14:30 Urine pH 6.5 (4.7-8.0) 03/16/17 14:30 Ur Specific [place] 1.020 (1.005-1.035) 03/16/17 14:30 Urine Protein 100 mg/dL (<30 mg/dL) H 03/16/17 14:30 Urine Glucose (UA) 500 mg/dL (NEGATIVE) H 03/16/17 14:30 Urine Ketones Negative mg/dL (NEGATIVE) 03/16/17 14:30 Urine Blood Large (NEGATIVE) H 03/16/17 14:30 Urine Nitrate Positive (NEGATIVE) H 03/16/17 14:30 Urine Bilirubin Small (NEGATIVE) H 03/16/17 14:30 Urine Urobilinogen 0.2 E.U./dL (<1 E.U./dL) 03/16/17 14:30 Ur Leukocyte Esterase Large Sheila/uL (NEGATIVE) H 03/16/17 14:30 Urine RBC Tntc /hpf (0-2) 03/16/17 14:30 Urine WBC 15 - 20 /hpf (0-6) 03/16/17 14:30 Ur Epithelial Cells 4 - 5 /hpf (0-5) 03/16/17 14:30 Urine Bacteria Mod (NEG) 03/16/17 14:30 Blood Type B POSITIVE 03/16/17 16:07 Blood Type Confirm B POSITIVE 03/16/17 16:50 Antibody Screen Negative 03/16/17 16:07 BBK History Checked No verified bt 03/16/17 16:07 - Hospital Course Hospital Course: Pt is an 81 year old male with past medical history of prostate cancer, DM, bladder mass s/ nephrostomy tube, ureteral stent placement and history of DVT on Coumadin who was admitted for back pain, chills, abdominal discomfort, fever , difficulty with urination and general fatigue. The patient was evaluated and determined to have sepsis secondary to obstructive uropathy. Montero catheter was placed and urology was consulted. Patient received one dose of vancomycin and zosyn in ED. The patient was admitted to ICU for close monitoring. GI was consulted for abdominal discomfort and constipation. Treated with anti- emetics, bowel regimen, and determined to not need GI intervention inpatient. Infectious disease was consulted and patient was started on Merrem. Urology was consulted and recommended percutaneous nephrostomy placement Patient noted to have coagulopathy with hematuria secondary to Coumadin elevation of INR. Patient was given vitamin K and 2 units of FFP with minimal improvement in INR. Patient was planned for placement of left nephrostomy tube on 03/17/17. While in vascular lab patient noted to have PEA and code blue was called. Attempts to resuscitate patient were attempted without return of spontaneous pulse. Patient was pronounced at 15:29 on 03/17/2017. - Date & Time of H&P Date of H&P: 03/16/17 Time of H&P: 20:20 Discharge Exam - Head Exam Head Exam: ATRAUMATIC, NORMAL INSPECTION - Eye Exam Eye Exam: EOMI, PERRL - ENT Exam ENT Exam: Mucous Membranes Dry - Respiratory Exam Additional comments: Tachypneia, Clear breath sounds bilateral, - Cardiovascular Exam Cardiovascular Exam: Tachycardia, +S1, +S2 - GI/Abdominal Exam GI & Abdominal Exam: Distended, Normal Bowel Sounds, Soft, Tenderness - Extremities Exam Extremities exam: full ROM, pedal edema (trace), pedal pulses present - Back Exam Back exam: CVA tenderness (L), CVA tenderness (R) - Neurological Exam Neurological exam: Alert, CN II-XII Intact, Oriented x3 - Psychiatric Exam Psychiatric exam: Normal Affect, Normal Mood - Skin Skin Exam: Dry, Normal Color Discharge Plan - Follow Up Plan Condition: CRITICAL Disposition: WITH WITHOUT AUTOPSY Instructions: Urinary Tract Infection in Women (DC), Urinary Tract Infection in Men (DC), Sepsis (ED), Dysuria (GEN) Referrals: Mike Wilkerson MD [Primary Care Provider] - <Damion Costello - Last Filed: 03/18/17 14:55> Provider - Provider Date of Admission: 03/16/17 15:38 Attending physician: Damion Costello MD Primary care physician: Mike Wilkerson MD Hospital Course - Lab Results Lab Results: Most Recent Lab Values WBC 37.2 10^3/ul (4.5-11.0) H* D 03/17/17 15:05 RBC 3.28 10^6/uL (3.5-6.1) L 03/17/17 15:05 Hgb 9.5 g/dL (14.0-18.0) L 03/17/17 15:05 Hct 30.2 % (42.0-52.0) L 03/17/17 15:05 MCV 92.1 fl (80.0-105.0) 03/17/17 15:05 MCH 29.0 pg (25.0-35.0) 03/17/17 15:05 MCHC 31.5 g/dl (31.0-37.0) 03/17/17 15:05 RDW 13.4 % (11.5-14.5) 03/17/17 15:05 Plt Count 75 10^3/uL (120.0-450.0) L 03/17/17 15:05 MPV 10.8 fl (7.0-11.0) 03/17/17 15:05 Neutrophils % (Manual) 69 % (50.0-70.0) 03/16/17 12:35 Band Neutrophils % 2 % (0-2) 03/16/17 12:35 Lymphocytes % (Manual) 20 % (22.0-35.0) L 03/16/17 12:35 Monocytes % (Manual) 5 % (1.0-6.0) 03/16/17 12:35 Eosinophils % (Manual) 4 % (0.0-3.0) H 03/16/17 12:35 PT 30.9 Seconds (9.9-11.8) H* 03/17/17 15:05 INR 2.86 (0.93-1.08) H 03/17/17 15:05 APTT 61.9 Seconds (23.7-30.8) H 03/17/17 15:05 pCO2 132 mm/Hg (35-45) H* 03/17/17 13:45 pO2 22.0 mm/Hg (80-100) L* 03/17/17 13:45 HCO3 21.0 mmol/L (21-28) 03/17/17 13:45 ABG pH 6.81 (7.35-7.45) L* 03/17/17 13:45 ABG Total CO2 25.1 mmol.L (22-28) 03/17/17 13:45 ABG O2 Saturation 25.2 % (95-98) L 03/17/17 13:45 ABG O2 Content 3.2 ML/dl (15-23) L 03/17/17 13:45 ABG Base Excess -13.9 mmol/L (-2.0-3.0) L 03/17/17 13:45 ABG Hemoglobin 8.9 g/dL (11.7-17.4) L 03/17/17 13:45 ABG Carboxyhemoglobin 0.5 % (0.5-1.5) 03/17/17 13:45 POC ABG HHb (Measured) 74.4 % (0-5) H 03/17/17 13:45 ABG Methemoglobin 0.0 % (0.0-3.0) 03/17/17 13:45 ABG O2 Capacity 12.7 mL/dl (16-24) L 03/17/17 13:45 ABG Potassium 2.6 mmol/L (3.6-5.2) L 03/16/17 13:10 Hgb O2 Saturation 25.1 % (95.0-98.0) L 03/17/17 13:45 Sodium 139.0 mmol/L (132-148) 03/16/17 13:10 Chloride 117.0 mmol/L (98-107) H 03/16/17 13:10 Glucose 199 mg/dl (75-110) H 03/16/17 13:10 Lactate 1.7 mmol/L (0.7-2.1) 03/16/17 13:10 FiO2 100.0 % 03/17/17 13:45 Sodium 145 mmol/L (132-148) 03/17/17 15:05 Potassium 4.7 mmol/L (3.6-5.0) 03/17/17 15:05 Chloride 107 mmol/L (98-107) 03/17/17 15:05 Carbon Dioxide 11 mmol/L (21-33) L 03/17/17 15:05 Anion Gap 32 (10-20) H 03/17/17 15:05 BUN 64 mg/dL (7-21) H 03/17/17 15:05 Creatinine 5.3 mg/dL (0.5-1.4) H 03/17/17 15:05 Est GFR ( Amer) 13 03/17/17 15:05 Est GFR (Non-Af Amer) 10 03/17/17 15:05 POC Glucose (mg/dL) 104 mg/dL (65-110) 03/17/17 12:22 Random Glucose 97 mg/dL (70-110) 03/17/17 15:05 Lactic Acid 6.1 mmol/L (0.7-2.1) H* 03/17/17 12:10 Calcium 7.5 mg/dL (8.4-10.5) L 03/17/17 15:05 Magnesium 1.7 mg/dL (1.7-2.2) 03/17/17 08:59 Total Bilirubin 1.5 mg/dL (0.2-1.3) H 03/17/17 15:05 AST 156 U/L (15-59) H 03/17/17 15:05 ALT 119 U/L (7-56) H 03/17/17 15:05 Alkaline Phosphatase 116 U/L (38-133) 03/17/17 15:05 Lactate Dehydrogenase 697 U/L (333-699) 03/16/17 13:10 Total Creatine Kinase 63 U/L (35-230) 03/16/17 13:10 Troponin I < 0.01 ng/mL 03/16/17 13:10 NT-Pro-B Natriuret Pep 1070 pg/mL (0-450) H 03/16/17 13:10 Total Protein 6.6 g/dL (5.8-8.3) 03/17/17 15:05 Albumin 3.3 g/dL (3.0-4.8) 03/17/17 15:05 Globulin 3.3 gm/dL 03/17/17 15:05 Albumin/Globulin Ratio 1.0 (1.1-1.8) L 03/17/17 15:05 Lipase 475 U/L (23-300) H 03/16/17 13:10 Prostate Specific Ag 1.1 ng/mL (0.00-2.5) 03/17/17 10:20 Procalcitonin > 200.00 NG/ML (0.19-0.49) H 03/17/17 11:09 Arterial Blood Potassium 2.6 mmol/L (3.6-5.2) L 03/16/17 13:10 Urine Color Red (YELLOW) 03/16/17 14:30 Urine Appearance Cloudy (CLEAR) 03/16/17 14:30 Urine pH 6.5 (4.7-8.0) 03/16/17 14:30 Ur Specific [place] 1.020 (1.005-1.035) 03/16/17 14:30 Urine Protein 100 mg/dL (<30 mg/dL) H 03/16/17 14:30 Urine Glucose (UA) 500 mg/dL (NEGATIVE) H 03/16/17 14:30 Urine Ketones Negative mg/dL (NEGATIVE) 03/16/17 14:30 Urine Blood Large (NEGATIVE) H 03/16/17 14:30 Urine Nitrate Positive (NEGATIVE) H 03/16/17 14:30 Urine Bilirubin Small (NEGATIVE) H 03/16/17 14:30 Urine Urobilinogen 0.2 E.U./dL (<1 E.U./dL) 03/16/17 14:30 Ur Leukocyte Esterase Large Sheila/uL (NEGATIVE) H 03/16/17 14:30 Urine RBC Tntc /hpf (0-2) 03/16/17 14:30 Urine WBC 15 - 20 /hpf (0-6) 03/16/17 14:30 Ur Epithelial Cells 4 - 5 /hpf (0-5) 03/16/17 14:30 Urine Bacteria Mod (NEG) 03/16/17 14:30 Blood Type B POSITIVE 03/16/17 16:07 Blood Type Confirm B POSITIVE 03/16/17 16:50 Antibody Screen Negative 03/16/17 16:07 BBK History Checked No verified bt 03/16/17 16:07 Attending/Attestation - Attestation I have personally seen and examined this patient.: Yes I have fully participated in the care of the patient.: Yes I have reviewed all pertinent clinical information, including history, physical exam and plan: Yes Notes (Text): 03/18/17 14:48 Attending note: Patient seen and examined with resident in ICU this morning. Patient is a 81 year old male with pmh for prostate cancer, hormonal resistant cancer, diabetes, bladder mass s/p nephrostomy tube removal and right ureteral stent placement, history of DVT on COUMADIN is admitted with chills,bilateral back pain, shortness of breath and general weakness. found to have obstructive uropathy with Sepsis. Patient has right ureteral stent and left hydronephros secondary to lymph node enlargement. Case discussed with urologist Dr. Machado in detail. Coagulopathy with hematuria; got vitamin K and FFP. continue Montero catheter. Acute on chronic kidney disease. Worsening of renal failure secondary to obstructive uropathy. Sepsis; on merem. case discussed with Dr. Machado and Dr. Tevin Eaton in detail. Plan for Left nephrostomy tube today. patient's daughter informed about the procedure. Continue to monitor the patient closely in ICU. addendum; While patient was waiting for nephrostomy tube the patient lost his pulse. CODE BLUE WAS CALLED. CPR initiated. ACLS protocol followed. patient did not regain pulse or circulation. Pronounced at 15;29. patient's daughter by the bedside. Patient's informed. deportation examiner's office called. body released. certificate signed. 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
--- NOTE | 2017-03-17 21:00 | CP.PCM.PN ---
<GREYSON CAVAZOS - Last Filed: 03/17/17 20:45> Subjective - Date & Time of Evaluation Date of Evaluation: 03/17/17 Time of Evaluation: 07:30 - Subjective Subjective: Greyson Cavazos DO PGY1 - ICU Progress Note Patient seen and examined at bedside. Nurses report persistent tachycardia overnight, as well as occasionally having to flush caraballo due to clots plugging it. Patient was in mild distress, started on BIPAP, improved slightly. Daughter at bedside. Became hypotensive, but responded to 1L NS. Patient is to go for nephrostomy later today. Objective - Vital Signs/Intake and Output Vital Signs (last 24 hours): Temp Pulse Resp BP Pulse Ox 98.2 F 121 H 27 H 91/50 L 93 L 03/17/17 13:40 03/17/17 14:00 03/17/17 14:00 03/17/17 13:52 03/17/17 14:00 - Labs Labs: 03/17/17 15:05 03/17/17 15:05 PT 30.9 Seconds (9.9-11.8) H* 03/17/17 15:05 INR 2.86 (0.93-1.08) H 03/17/17 15:05 APTT 61.9 Seconds (23.7-30.8) H 03/17/17 15:05 - Constitutional Appears: Toxic, In Acute Distress (mild) - Head Exam Head Exam: ATRAUMATIC, NORMOCEPHALIC - Eye Exam Eye Exam: EOMI, PERRL - ENT Exam ENT Exam: Mucous Membranes Moist - Neck Exam Neck Exam: Normal Inspection. absent: Meningismus - Respiratory Exam Additional comments: Tachypnic. Breathing through pursed lips. Started on BIPAP, improved. Mild rales diffusely after 1L NS bolus. - Cardiovascular Exam Cardiovascular Exam: Tachycardia, RRR, +S1, +S2 - GI/Abdominal Exam GI & Abdominal Exam: Distended, Soft. absent: Tenderness - Exam Additional comments: Persistent hematuria - Extremities Exam Extremities Exam: absent: Calf Tenderness, Pedal Edema - Back Exam Back Exam: CVA tenderness (R). absent: CVA tenderness (L) - Neurological Exam Neurological Exam: Alert, Awake - Psychiatric Exam Psychiatric exam: Agitated - Skin Skin Exam: Dry, Intact Assessment and Plan - Assessment and Plan (Free Text) Assessment: 81 yo M with PMH significant for prostate CA, s/p right ureteral stent, and DVT admitted to the ICU for complicated urosepsis with left hydronephrosis and likely right pyelonephritis. Neuro: - Patient is agitated, but awake and alert - Continue to monitor mental status for signs of AMS 2/2 uremia vs sepsis CV: - Patient is persistently tachycardic, likely 2/2 sepsis rather than intrinsic cardiac pathology - Patient became hypotensive, partially responded to 1L NS bolus. Patient and daughter consented for CVC in case of need for vasopressors. Will transfuse FFP prior to any invasive procedure due to supratherapeutic INR - Maintain MAP >65 Pulm: - Patient was in mild respiratory distress, but improved on BIPAP 05/15 - Patient has rales on exam, but cannot give lasix due to possible shock state - Saturating well on FiO2 40% - Maintain O2 sat >90% GI: - Currently NPO pending surgery - Had 3 episodes of 1-2 cc hemoptysis yesterday, now resolved - GI consulted for concern of GI bleed in the setting of supratherapeutic INR - Ppx Protonix Renal: - Right pyelonephritis, left hydronephrosis and hydroureter 2/2 stricture vs mass at UVJ - UTI with persistent hematuria - Recieved 1100mL overnight and total approximately 3L bolus prior, urine output approximately 800mL - On IVF and Abx, pending nephrostomy and/or stent placement/removal - Consulted Uro (Jeannette) - Consulted nephro (Ivet) - Consulted IR (Angelito) for nephrostomy Endo: - H/o DM, hold home antihypertensives - Maintain euglycemia, continue to monitor ID: - Urosepsis with multi organ failure - Received vanc and zosyn in ED. Now on Merrem per ID - Pending nephrostomy or stent - ID (Eduarda) consulted, all recs appreciated Hem/Onc: - Hematuria and hemoptysis in setting of supratherapeutic INR - H/o DVT several months ago, on coumadin at home. Currently holding coumadin due to supratherapeutic INR, active bleeding, and planned surgery - Ordered 4u FFP to reverse coagulopathy prior to any invasive procedure, patient consented to receive blood products - Model And Pattern Supervisor (Laina) consulted, familiar with patient, all recs appreciated Ppx: SCD, protonix Patient seen and discussed with attending. <Thad Bruce - Last Filed: 03/18/17 16:30> Objective - Vital Signs/Intake and Output Vital Signs (last 24 hours): Temp Pulse Resp BP Pulse Ox 98.2 F 121 H 27 H 91/50 L 93 L 03/17/17 13:40 03/17/17 14:00 03/17/17 14:00 03/17/17 13:52 03/17/17 14:00 - Labs Labs: 03/17/17 15:05 03/17/17 15:05 PT 30.9 Seconds (9.9-11.8) H* 03/17/17 15:05 INR 2.86 (0.93-1.08) H 03/17/17 15:05 APTT 61.9 Seconds (23.7-30.8) H 03/17/17 15:05 Attending/Attestation - Attestation I have personally seen and examined this patient.: Yes I have fully participated in the care of the patient.: Yes I have reviewed all pertinent clinical information, including history, physical exam and plan: Yes Notes (Text): 03/18/17 16:29 81 yo male with severe sepsis secondary to GNR UTI and bacteremia. Fluid resuscitation, perc nephrostomy. abx, urology consult, ID consult ccm time 40 min
--- NOTE | 2017-03-18 08:30 | CON ---
Addendum CT of the abdomen and pelvis, right-sided urethral stent, no hydronephrosis, some perinephric stranding, new left hydronephrosis and hydroureter. No evidence of obstructing stone and large left pelvic lymph node, which is 3 x 4.7 cm and it has increased in size. CURRENT MEDICATIONS: Meropenem 500 q. 12 hours, morphine, Protonix, normal saline at 75 mg, and Zofran. ASSESSMENT: 1. Acute kidney injury, superimposed and chronic kidney disease, stage IV. 2. Septic shock, gram-negative septicemia. 3. Severe metabolic acidosis and lactic acidosis. 4. Anemia. 5. Leukocytosis with bandemia. 6. Vta-[id number] diabetes mellitus. 7. Hypertension. 8. Prostate cancer, history of bladder mass, history of right ureteral stent, now with left hydronephrosis and hydroureter. PLAN: 1. Continue IV fluid resuscitation. 2. Urology consultation and followup. 3. Agree with plan for percutaneous nephrostomy. 4. Antibiotic as per ID recommendations, dose antibiotics for creatinine clearance about 10 mL/minute. 5. Change IV fluid to add sodium bicarbonate to alkalinized fluid and correct acidosis. 6. Prognosis is guarded. 7. No plans for renal placement therapy at this time. Case discussed with daughter at bedside, case discussed with ICU staff, ICU residents. More than 35 minutes spent in the care of this critically ill patient. Clare Cooney MD AD[facility]
--- NOTE | 2017-03-18 08:30 | CON ---
DATE: 03/17/2017 REASON FOR CONSULTATION: Acute kidney injury, oliguria. HISTORY OF PRESENT ILLNESS: An 81-year-old male brought to the emergency room yesterday because of complaints of decrease urine output, shaking chills of one day duration. In the emergency room, he was found to have a temperature of 103.3. He was also found to have elevated blood pressure. At the time of presentation, blood pressure was 176/86. As per the daughter, the patient was fine on Friday. Friday, he became confused, complaints of some burning in the urine also complaints of lower abdominal pain. Had some shaking chills and was brought to the emergency room. There is no history of any kind of cough, shortness of breath. No history of any nausea or vomiting. No history of any constipation or diarrhea. In the emergency room, he was found to be neutropenic initially ?, initial WBC count was 2.5 with 2 bands also he was found to have acute kidney injury, superimposed on his chronic kidney disease. His baseline creatinine is around 2.2-2.5. His initial creatinine was found to be 3.6. Subsequently, the creatinine has risen to 5.0. Code sepsis was called. He is admitted to the ICU. He is hypotensive now. He is tachycardiac. His WBC count is 37,000. His latest creatinine is 5.0. His lactic acid is 6.1. He has gram-negative rods in his urine and his blood. PAST MEDICAL AND SURGICAL HISTORY: Prostate cancer, bladder mass, nephrostomy tube removal, right ureteral stent, back pain, NIDDM, chronic kidney disease stage IV, episodes of acute kidney injury in the past, hypertension, shingles and bilateral cataract surgery. FAMILY HISTORY: Noncontributory. SOCIAL HISTORY: No smoking. No alcohol use. No IV drug abuse. ALLERGIES: NO KNOWN DRUG ALLERGIES. MEDICATIONS AT HOME: Coumadin, simvastatin, losartan 50 mg daily, insulin and Casodex. REVIEW OF SYSTEMS: Unavailable since the patient is unable to cooperate with systems review, he is arousable, but somnolent. PHYSICAL EXAMINATION: GENERAL: Obese elderly male lying in bed. VITAL SIGNS: Blood pressure 119/62, heart rate 125, respiratory rate 30 and temperature is 98. HEENT: Normocephalic and atraumatic, positive pallor. NECK: Supple. No JVD. LUNGS: Bilateral equal air entry, bilateral rhonchi, tachypnea. CARDIAC: S1, S2, regular rate and rhythm, tachycardia. No murmur. No rubs. ABDOMEN: Obese, distended, soft, positive tenderness in the lower abdomen. Bowel sounds present. EXTREMITIES: No lower extremity edema. INTAKE AND OUTPUT: 1100/300. LABORATORY DATA: WBC 37, hemoglobin 9.5, hematocrit 30 and platelets 75. Sodium 140, potassium 3.6, chloride 107, CO2 of 16, BUN 67, creatinine 5.0, glucose 86, calcium 7.7 and magnesium 1.7. Lactic acid 6.1. PH of 6.8, pCO2 of 132, pO2 of 22. Urine; red, cloudy, pH of 6.5, specific gravity 1020, protein 100, glucose 500, blood large, nitrite positive, leukocyte esterase large and rbc's too numerous count. Urine culture gram-negative joellen. Blood culture gram-negative joellen. CT of the abdomen. Clare Cooney MD
--- NOTE | 2017-03-18 09:27 | CARD ---
APPROVED REPORT EKG Measurement Heart [id number] <Conclusion> Sinus tachycardia Right bundle branch block IMI, old STTW changes
--- NOTE | 2017-03-18 09:29 | CARD ---
APPROVED REPORT EKG Measurement Heart [id number] <Conclusion> Sinus tachycardia Right bundle branch block Inferior infarct, old STTW changes Noo change
== END 2017-03-17 15:29 | DRG 871 ==
LOC: ED 12:11 → ERH 15:38 → CCU 20:39
PROVIDERS: ADMIT Internal Medicine; ATTEND Internal Medicine
PROC: 30233K1 Transfusion of Nonautologous Frozen Plasma into Peripheral Vein, Percutaneous Approach (ICD-10-PCS; principal; 2017-03-16)
PROC: 5A09357 Assistance with Respiratory Ventilation, Less than 24 Consecutive Hours, Continuous Positive Airway Pressure (ICD-10-PCS; 2017-03-17)
PROC: 3E0F7GC Introduction of Other Therapeutic Substance into Respiratory Tract, Via Natural or Artificial Opening (ICD-10-PCS; 2017-03-17)
DX: A41.50 Gram-negative sepsis, unspecified (principal); R65.21 Severe sepsis with septic shock; E87.2 Acidosis; N18.4 Chronic kidney disease, stage 4 (severe); N17.9 Acute kidney failure, unspecified; E11.22 Type 2 diabetes mellitus with diabetic chronic kidney disease; I47.1 Supraventricular tachycardia; N13.6 Pyonephrosis; I12.9 Hypertensive chronic kidney disease with stage 1 through stage 4 chronic kidney disease, or unspecified chronic kidney disease; C61 Malignant neoplasm of prostate; D64.9 Anemia, unspecified; R31.9 Hematuria, unspecified; K59.00 Constipation, unspecified; J44.9 Chronic obstructive pulmonary disease, unspecified; N32.9 Bladder disorder, unspecified; Z93.6 Other artificial openings of urinary tract status; Z79.84 Long term (current) use of oral hypoglycemic drugs; Z86.718 Personal history of other venous thrombosis and embolism; Z79.01 Long term (current) use of anticoagulants; Z86.19 Personal history of other infectious and parasitic diseases; Z87.891 Personal history of nicotine dependence